=== PATIENT | female | born 1940 | race Caucasian/White ===

== ENCOUNTER 2017-07-15 06:55 | Day surgery (SDC) | payer MEDICARE, OTHER ==
[2017-07-15] MEDS ORDERED: Lactated Ringers 1,000 ML IV SCH (07:15)
[2017-07-15] MEDS ORDERED: Propofol 200 MG/20 ML SDV ONE ×2 (07:42→08:18)
[2017-07-15] MEDS ORDERED: fentaNYL 100 MCG/2 ML SDV ONE (07:43)
[2017-07-15 11:39] VITALS: BP 152/83
--- NOTE | 2017-07-15 15:18 | OR ---
DATE OF PROCEDURE: 07/15/2017 PREOPERATIVE DIAGNOSES: Epigastric pain, history of colon polyps, chronic diverticulosis with 20-pound weight loss. POSTOPERATIVE DIAGNOSES: Epigastric pain, history of colon polyps, chronic diverticulosis with 20-pound weight loss, pyloric stenosis without inflammation, poor colonoscopy prep. PROCEDURE: Esophagogastroscopy with a view of duodenal bulb, biopsy of gastroesophageal junction, attempted colonoscopy to about 30 cm with random colonic biopsies of the rectosigmoid because of diarrhea. SURGEON: Franco Jacob MD. ANESTHESIA: IV anesthesia with monitored anesthesia care. INDICATION: This is a 76-year-old white female who is referred for upper and lower endoscopy. The indication for upper endoscopy is epigastric pain. She says she feels like she is having a heart attack, but she is not. The indication for a colonoscopy is a history of colon polyps as well as she says diarrhea, which started back early in the summer. I counseled her for upper and lower endoscopy with possible biopsy and/or polypectomy including risks and alternatives, and she gave her informed consent to proceed. DESCRIPTION OF PROCEDURE: The patient was placed in the left lateral decubitus position. IV anesthesia was administered by the Anesthesia Service. Time-out was held. The flexible video Olympus upper endoscope was passed through her mouth, down her esophagus, and into her stomach. The scope was passed down to the pylorus. The pylorus was stenotic. We could not pass through the pylorus into the duodenum, however, we were able to visualize the duodenal bulb, which appeared unremarkable. The scope was brought back, the antrum appeared unremarkable. The scope was retroflexed, the proximal stomach appeared unremarkable. The scope was straightened and brought up to the GE junction. There was evidence of chronic inflammation at the GE junction, as well as the Z-line was not straight , consistent with gastroesophageal reflux disease. We obtained multiple, totalling six biopsies of the gastroesophageal junction. The scope was then brought proximally through remainder of the esophagus, which otherwise appeared unremarkable and it was removed. Next, a rectal exam was performed, which was unremarkable. The flexible video Olympus colonoscope was introduced through her anus, up her rectum, and out her colon. We only got to about 30 cm. We ran into a wall of stool. Also, we were unable to negotiate around this, as there was a lot of bowing. We attempted abdominal compression to see if that would help, and it did not. We then obtained random colonic biopsies of her rectosigmoid because of her chronic diarrhea to check for microscopic colitis. The scope was retroflexed in the rectum with the distal rectum appearing unremarkable. The scope was straightened and removed. She tolerated the procedure well. Franco Jacob MD /[id number] MTDD
== END 2017-07-15 12:22 | disposition home or self-care (01) ==
LOC: JP.SDS 06:55
PROVIDERS: ATTEND Surgery
DX: Z12.11 Encounter for screening for malignant neoplasm of colon (principal); K20.9 Esophagitis, unspecified; K52.9 Noninfective gastroenteritis and colitis, unspecified; Z86.010 Personal history of colon polyps; I12.9 Hypertensive chronic kidney disease with stage 1 through stage 4 chronic kidney disease, or unspecified chronic kidney disease; N18.9 Chronic kidney disease, unspecified; J44.9 Chronic obstructive pulmonary disease, unspecified; E03.9 Hypothyroidism, unspecified; K21.9 Gastro-esophageal reflux disease without esophagitis; F32.9 Major depressive disorder, single episode, unspecified; E66.9 Obesity, unspecified; I73.9 Peripheral vascular disease, unspecified; Z88.2 Allergy status to sulfonamides; Z88.8 Allergy status to other drugs, medicaments and biological substances; Z87.891 Personal history of nicotine dependence; Z90.49 Acquired absence of other specified parts of digestive tract; Z90.710 Acquired absence of both cervix and uterus; Z68.30 Body mass index [BMI] 30.0-30.9, adult
CPT/HCPCS: 43239; 45380; 88305; 88312; J2704; J3010; J7120

== ENCOUNTER 2017-10-28 07:37 | Day surgery (SDC) | payer MEDICARE, OTHER ==
[2017-10-28] MEDS ORDERED: Lactated Ringers 1,000 ML IV SCH (08:00)
[2017-10-28] MEDS ORDERED: Propofol 200 MG/20 ML SDV ONE ×2 (08:19→09:42)
[2017-10-28] MEDS ORDERED: fentaNYL 100 MCG/2 ML SDV ONE (08:19)
[2017-10-28 11:00] VITALS: BP 141/76
--- NOTE | 2017-10-28 14:38 | OR ---
DATE OF PROCEDURE: 10/28/2017 PREOPERATIVE DIAGNOSIS: History of adenomatous colon polyps. POSTOPERATIVE DIAGNOSES: Diverticulosis, 2 areas of small colon polyps, proximal transverse colon and transverse colon. PROCEDURE PERFORMED: Colonoscopy to the cecum with biopsy resection of 3 small colon polyps, proximal transverse colon, and 3 small colon polyps, transverse colon. ANESTHESIA: IV anesthesia with monitored anesthesia care. INDICATION: This 77-year-old white female is here for a colonoscopy. She has a history of adenomatous colon polyps. I counseled her for the procedure including risks and alternatives, and she gave her informed consent to proceed. DESCRIPTION OF PROCEDURE: The patient was placed in the left lateral decubitus position. IV anesthesia was administered by the Anesthesia Service. Time-out was held. A rectal exam was performed, which was unremarkable. The flexible video Olympus colonoscope was introduced through her anus, up her rectum, and out her colon, all the way to the cecum. En route, we saw several left-sided diverticula. There was no bleeding or inflammation associated with any of them. In the mid area of the transverse colon, we saw 3 polyps adjacent to each other. These were removed with the biopsy forceps and sent to the laboratory as 1 specimen. In the more proximal transverse colon, we saw another short area of 3 small polyps, which were again removed with the biopsy forceps and sent to the laboratory as 1 specimen. The scope was passed into the cecum. It was then slowly withdrawn, examining the mucosa throughout. No additional mucosal abnormalities were noted. The scope was retroflexed in the rectum with the distal rectum appearing unremarkable. The scope was straightened and removed. She tolerated the procedure well. Franco Jacob MD /[id number]
== END 2017-10-28 11:59 | disposition home or self-care (01) ==
LOC: JP.SDS 07:37
PROVIDERS: ATTEND Surgery
DX: Z12.11 Encounter for screening for malignant neoplasm of colon (principal); D12.3 Benign neoplasm of transverse colon; K57.30 Diverticulosis of large intestine without perforation or abscess without bleeding; E78.5 Hyperlipidemia, unspecified; K21.9 Gastro-esophageal reflux disease without esophagitis; I73.9 Peripheral vascular disease, unspecified; F41.9 Anxiety disorder, unspecified; F32.9 Major depressive disorder, single episode, unspecified; N18.9 Chronic kidney disease, unspecified; I12.9 Hypertensive chronic kidney disease with stage 1 through stage 4 chronic kidney disease, or unspecified chronic kidney disease; E03.9 Hypothyroidism, unspecified; Z86.010 Personal history of colon polyps; Z88.2 Allergy status to sulfonamides; Z88.8 Allergy status to other drugs, medicaments and biological substances
CPT/HCPCS: 45380; J2704; J3010; J7120

== ENCOUNTER 2018-03-27 23:23 | Emergency (ER) | payer MEDICARE, OTHER ==
[2018-03-28] MEDS ORDERED: Prochlorperazine 10 MG/2 ML SDV IVPUSH ONE (00:12)
[2018-03-28] MEDS ORDERED: Lactated Ringers 1,000 ML IV SCH ×2 (00:15→02:15)
[2018-03-28] MEDS ORDERED: Lactated Ringers 1,000 ML IV ONE (00:18)
--- NOTE | 2018-03-28 00:18 | EDM.PDOC ---
ED HPI GENERAL MEDICAL PROBLEM - General Chief Complaint: Gastrointestinal Problem Stated Complaint: FLU VOMITING PAST FEW DAYS Time Seen by Provider: 03/28/18 00:00 Source of Information: Reports: Patient, Old Records, RN History Limitations: Reports: No Limitations - History of Present Illness INITIAL COMMENTS - FREE TEXT/NARRATIVE: 77 yo female presents with a worsening of her chronic diarrhea over the past 2 days as well as some nausea and vomiting. Is taking in very little oral due to her illness and is not taking any of her medications. Has not been to the clinic for this. No fever. No bleeding. Does have some abdominal pain diffusely. Had not felt well for about a week. Onset: Gradual Onset Date: 03/26/18 Duration: Day(s): (2+), Getting Worse Location: Reports: Abdomen Quality: Reports: Dull Severity: Moderate Improves with: Reports: None Worsens with: Reports: Other (time) Context: Reports: Other (Has chronic diarrhea) Associated Symptoms: Reports: Loss of Appetite, Nausea/Vomiting. 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 (see below) (none) abdominal pain Pain Score (Numeric/FACES): 5 - Related Data Allergies Allergy/AdvReac Type Severity Reaction Status Date / Time Sulfa (Sulfonamide Allergy Cannot Verified 03/27/18 23:58 Antibiotics) Remember atorvastatin AdvReac Abdominal Verified 03/27/18 23:58 Pain ibuprofen [From Motrin] AdvReac Stomach Verified 03/27/18 23:58 Upset Home Meds: Home Meds Albuterol Sulfate [Albuterol Sulfate HFA] 2 puff INH QID 08/15/14 [History] Aspirin [Ecotrin] 162 mg PO DAILY 08/15/14 [History] Cholecalciferol (Vitamin D3) [Vitamin D3] 2,000 unit PO DAILY 08/15/14 [History] Citalopram Hydrobromide [Celexa] 30 mg PO DAILY 08/15/14 [History] Cyanocobalamin/FA/Pyridoxine [Folbic] 1 tab PO DAILY 08/15/14 [History] Hydrochlorothiazide 12.5 mg PO DAILY 08/15/14 [History] Levothyroxine [Synthroid] 88 mcg PO DAILY 08/15/14 [History] Metoprolol Succinate [Toprol Xl] 150 mg PO DAILY 08/15/14 [History] Omeprazole [Prilosec] 20 mg PO QAM 08/15/14 [History] amLODIPine Besylate [Amlodipine Besylate] 10 mg PO DAILY 08/15/14 [History] Gabapentin [Neurontin] 200 mg PO BEDTIME 07/11/17 [History] Magnesium Oxide 400 mg PO DAILY 07/11/17 [History] Multivitamin with Minerals [Multiple Vitamin] 1 tab PO DAILY 07/11/17 [History] Nystatin 100,000 unit TOP BID 07/11/17 [History] Triamcinolone Acetonide [Kenalog 0.1% Crm] 0.1 percent TOP BID 07/11/17 [History ] Cholestyramine/Sucrose [Cholestyramine Packet] 4 gm PO BID 03/28/18 [History] Diphenoxylate HCl/Atropine [Diphenoxylate-Atrop 2.5-0.025] 2 each PO QID PRN 03/10 [History] Past Medical History HEENT History: Reports: Impaired Vision Other HEENT History: wears glasses Cardiovascular History: Reports: CAD, Hypertension, SOB on Exertion, Other (See Below) Other Cardiovascular History: carotid artery disease-peripheral artery disease- abdom. 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: Dysfunctional Uterine Bleeding Musculoskeletal History: Reports: Back Pain, Chronic, Fracture, Osteoarthritis Other Musculoskeletal History: chronic degenerative back disease Psychiatric History: Reports: Depression, Psych Hospitalization(s), Suicide Attempt, Suicidal Ideation Endocrine/Metabolic History: Reports: Hypothyroidism, Obesity/BMI 30+ Hematologic History: Reports: Anemia Dermatologic History: Reports: Other (See Below) Other Dermatologic History: "picks at skin" - Infectious Disease History Infectious Disease History: Reports: Chicken Pox - Past Surgical History HEENT Surgical History: Reports: Cataract Surgery Cardiovascular Surgical History: Reports: AAA Repair GI Surgical History: Reports: Appendectomy, Cholecystectomy, Colonoscopy, Polypectomy Female Surgical History: Reports: Hysterectomy, Salpingo-Oophorectomy Musculoskeletal Surgical History: Reports: Carpal Tunnel Dermatological Surgical History: Reports: None Social & Family History - Family History Family Medical History: Noncontributory - Tobacco Use Smoking Status *Q: Never Smoker Second Hand Smoke Exposure: No - Caffeine Use Caffeine Use: Reports: Coffee - Recreational Drug Use Recreational Drug Use: No - Living Situation & Occupation Living situation: Reports: , with Spouse Occupation: Disabled ED ROS GENERAL - Review of Systems Review Of Systems: See Below Constitutional: Reports: Malaise, Decreased Appetite. Denies: Fever HEENT: Reports: No Symptoms Respiratory: Reports: No Symptoms Cardiovascular: Reports: No Symptoms Endocrine: Reports: No Symptoms GI/Abdominal: Reports: Abdominal Pain, Diarrhea, Decreased Appetite, Nausea, Vomiting. Denies: Black Stool, Bloody Stool, Constipation, Hematemesis, Hematochezia, Melena : Reports: No Symptoms Musculoskeletal: Reports: No Symptoms Skin: Reports: No Symptoms Neurological: Reports: No Symptoms ED EXAM, GI/ABD - Physical Exam Exam: See Below Exam Limited By: No Limitations General Appearance: Alert, WD/WN, No Apparent Distress Eyes: Bilateral: Normal Appearance Ears: Normal External Exam, Normal Canal, Hearing Grossly Normal Nose: Normal Inspection, Normal Mucosa, No Blood Throat/Mouth: Normal Inspection, Normal Lips, Normal Oropharynx, Normal Voice, No Airway Compromise Head: Atraumatic, Normocephalic Neck: Normal Inspection Respiratory/Chest: No Respiratory Distress, Lungs Clear, Normal Breath Sounds, No Accessory Muscle Use Cardiovascular: Regular Rate, Rhythm, Tachycardia GI/Abdominal Exam: Distended (mild), Tender (diffusely), Abnormal Bowel Sounds ( decreased). No: No Distention Back Exam: Normal Inspection. No: CVA Tenderness (R), CVA Tenderness (L) Extremities: Normal Inspection, Normal Range of Motion, Non-Tender, No Pedal Edema Neurological: Alert, Oriented, CN II-XII Intact, Normal Cognition Psychiatric: Normal Affect, Normal Mood Skin Exam: Warm, Dry, Intact, Normal Color, No Rash Lymphatic: No Adenopathy EKG INTERPRETATION EKG Date: 03/28/18 Time: 01:50 Rhythm: NSR Rate (Beats/Min): 112 Rudyard: Normal P-Wave: Present QRS: Normal ST-T: Depressed (V2-V4) QT: Normal Comparison: Change From Previous EKG (anterior changes noted since tracing in ' 14) Course - Vital Signs Text/Narrative:: Developed transient chest pain with EKG changes during her ER stay. Will transfer to [facility]. Dr. Gil accepting. Last Recorded V/S: Last Vital Signs Temp 36.6 C 03/28/18 02:15 Pulse 116 H 03/28/18 02:15 Resp 19 03/28/18 02:15 BP 172/85 H 03/28/18 02:15 Pulse Ox 98 03/28/18 02:15 Orthostatic Blood Pressure [ 69/37 Standing] Orthostatic Blood Pressure [ 99/49 Sitting] Orthostatic Blood Pressure [ 108/80 Supine] - Orders/Labs/Meds Orders: Active Orders 24 hr Category Date Time Status EKG Documentation Completion [RC] ASDIRECTED Care 03/28/18 01:49 Active Orthostatic Vital Signs [RC] ASDIRECTED Care 03/28/18 00:09 Active Abdomen 1V Upright [CR] Stat Exams 03/28/18 00:11 Taken CLOSTRIDIUM DIFFICILE BY PCR [RM] Stat Lab 03/28/18 00:10 Ordered UA W/MICROSCOPIC [URIN] Stat Lab 03/28/18 00:09 Ordered Lactated Ringers [Ringers, Lactated] 1,000 ml Med 03/28/18 02:15 Active IV ASDIRECTED EKG 12 Lead [EK] Routine Ther 03/28/18 01:49 Ordered Medication Orders Lactated Ringer's (Ringers, Lactated) 1,000 mls @ 150 mls/hr IV ASDIRECTED [facility] Last Admin: 03/28/18 02:14 Dose: 150 mls/hr Labs: Laboratory Tests 03/28/18 03/28/18 03/28/18 Range/Units 00:15 00:23 00:23 WBC 9.6 (4.5-11.0) K/uL RBC 3.61 (3.30-5.50) M/uL Hgb 11.5 L (12.0-15.0) g/dL Hct 35.2 L (36.0-48.0) % MCV 98 (80-98) fL MCH 32 H (27-31) pg MCHC 33 (32-36) % Plt Count 315 (150-400) K/uL Sodium 137 L (140-148) mmol/L Potassium 3.5 L (3.6-5.2) mmol/L Chloride 105 (100-108) mmol/L Carbon Dioxide 16 L (21-32) mmol/L Anion Gap 19.5 H (5.0-14.0) mmol/L BUN 52 H D (7-18) mg/dL Creatinine 2.7 H D (0.6-1.0) mg/dL Est Cr Clr Drug Dosing 12.33 mL/min Estimated GFR (MDRD) 17 L (>60) Glucose 130 H (74-106) mg/dL Calcium 9.3 (8.5-10.1) mg/dL Total Bilirubin 0.3 (0.2-1.0) mg/dL AST 56 H (15-37) U/L ALT 31 (12-78) U/L Alkaline Phosphatase 114 D (46-116) U/L Troponin I 0.068 H* (0.000-0.056) ng/mL Total Protein 7.8 (6.4-8.2) g/dL Albumin 3.6 (3.4-5.0) g/dL Globulin 4.2 H (2.3-3.5) g/dL Albumin/Globulin Ratio 0.9 L (1.2-2.2) Meds: Medications Generic Name Dose Route Start Last Admin Trade Name Freq PRN Reason Stop Dose Admin Lactated Ringer's 1,000 mls @ 150 mls/hr 03/28/18 02:15 03/28/18 02:14 Ringers, Lactated IV 150 mls/hr ASDIRECTED AZIZA Administration Discontinued Medications Generic Name Dose Route Start Last Admin Trade Name Flakoq PRN Reason Stop Dose Admin Aspirin 324 mg 03/28/18 01:59 03/28/18 02:08 Aspirin PO 03/28/18 02:00 324 mg ONETIME ONE Administration Lactated Ringer's 1,000 mls @ 150 mls/hr 03/28/18 00:15 Ringers, Lactated IV ASDIRECTED AZIZA Lactated Ringer's 1,000 mls @ 1,000 mls/hr 03/28/18 00:18 03/28/18 00:35 Ringers, Lactated IV 03/28/18 01:17 1,000 mls/hr BOLUS ONE Administration Metoprolol Tartrate 50 mg 03/28/18 01:59 03/28/18 02:08 Lopressor PO 03/28/18 02:00 50 mg ONETIME ONE Administration Prochlorperazine Edisylate 5 mg 03/28/18 00:12 03/28/18 00:37 Compazine IVPUSH 03/28/18 00:13 5 mg ONETIME ONE Administration - Radiology Interpretation Free Text/Narrative:: upright abdominal X-ray- non-specific gas pattern Departure - Departure Time of Disposition: 02:45 Disposition: DC/Tfer to Acute Hospital 02 Condition: Fair Clinical Impression: Cardiac ischemia, Dehydration, Elevated serum creatinine - Discharge Information Referrals: PCP,None [Primary Care Provider] - Forms: ED Department Discharge - My Orders Last 24 Hours: My Active Orders 03/28/18 00:09 Orthostatic Vital Signs [RC] ASDIRECTED UA W/MICROSCOPIC [URIN] Stat 03/28/18 00:10 CLOSTRIDIUM DIFFICILE BY PCR [RM] Stat 03/28/18 00:11 Abdomen 1V Upright [CR] Stat 03/28/18 01:49 EKG Documentation Completion [RC] ASDIRECTED EKG 12 Lead [EK] Routine 03/28/18 02:15 Lactated Ringers [Ringers, Lactated] 1,000 ml IV ASDIRECTED - Assessment/Plan Last 24 Hours: My Active Orders 03/28/18 00:09 Orthostatic Vital Signs [RC] ASDIRECTED UA W/MICROSCOPIC [URIN] Stat 03/28/18 00:10 CLOSTRIDIUM DIFFICILE BY PCR [RM] Stat 03/28/18 00:11 Abdomen 1V Upright [CR] Stat 03/28/18 01:49 EKG Documentation Completion [RC] ASDIRECTED EKG 12 Lead [EK] Routine 03/28/18 02:15 Lactated Ringers [Ringers, Lactated] 1,000 ml IV ASDIRECTED
[2018-03-28] MEDS ORDERED: Metoprolol Tartrate 50 MG Tab PO ONE (01:59)
[2018-03-28] MEDS ORDERED: Aspirin 81 MG Tab.Chew PO ONE (01:59)
[2018-03-28] MEDS ORDERED: Heparin Sodium 5,000 Units/ML Vial IVPUSH ONE (02:31)
[2018-03-28] MEDS ORDERED: Heparin Sodium/D5W 25,000 UNITS/500 ML BAG IV SCH (02:45)
[2018-03-28 03:11] VITALS: BP 176/85
--- NOTE | 2018-03-28 09:07 | CR ---
Abdomen 1V Upright INDICATION: abdominal pain COMPARISON: Nothing recent. FINDINGS: 2 views. Aortobiiliac stent graft. No abnormal bowel gas pattern or signs of obstruction. No free air or abnormal air-fluid levels.
== END 2018-03-28 02:58 ==
LOC: JP.ED 23:23
DX: I25.9 Chronic ischemic heart disease, unspecified (principal); E86.0 Dehydration; R74.8 Abnormal levels of other serum enzymes; J44.9 Chronic obstructive pulmonary disease, unspecified; I12.9 Hypertensive chronic kidney disease with stage 1 through stage 4 chronic kidney disease, or unspecified chronic kidney disease; N18.3 Chronic kidney disease, stage 3 (moderate); E03.9 Hypothyroidism, unspecified; Z88.2 Allergy status to sulfonamides; Z88.6 Allergy status to analgesic agent; Z79.82 Long term (current) use of aspirin; Z87.440 Personal history of urinary (tract) infections
CPT/HCPCS: 36415; 74018; 80053; 84484; 85027; 93005; 96361; 96374; 96375; 99285; A9270; J0780; J1644; J7120; 99284-25

== ENCOUNTER 2018-03-31 08:15 | Emergency (ER) | payer MEDICARE, OTHER ==
[2018-03-31 08:39] VITALS: BP 115/48
[2018-03-31] MEDS ORDERED: Gabapentin 100 MG Cap PO ONE (09:12)
--- NOTE | 2018-03-31 09:17 | EDM.PDOC ---
ED HPI GENERAL MEDICAL PROBLEM - General Chief Complaint: Upper Extremity Injury/Pain Stated Complaint: VOMITING WEAK Time Seen by Provider: 03/31/18 08:50 Source of Information: Reports: Patient, Family History Limitations: Reports: No Limitations - History of Present Illness INITIAL COMMENTS - FREE TEXT/NARRATIVE: 77-year-old female was released from the hospital in [place] yesterday after a workup considering generalized malaise, nausea, cardiac symptoms but in reviewing her history she admits that she tried to fill her gabapentin last week and was unable because it was "too early". Today she comes in with her arms aching, no shortness of breath or chest pain. She feels like she needs to have her gabapentin. Onset: Gradual, Unknown/Unsure Improves with: Reports: Other (Symptoms are better when she is on her regular medications) Associated Symptoms: Reports: No Other Symptoms - Related Data Allergies Allergy/AdvReac Type Severity Reaction Status Date / Time Sulfa (Sulfonamide Allergy Cannot Verified 03/31/18 08:39 Antibiotics) Remember atorvastatin AdvReac Abdominal Verified 03/31/18 08:39 Pain ibuprofen [From Motrin] AdvReac Stomach Verified 03/31/18 08:39 Upset Home Meds: Home Meds Albuterol Sulfate [Albuterol Sulfate HFA] 2 puff INH QID 08/15/14 [History] Aspirin [Ecotrin] 162 mg PO DAILY 08/15/14 [History] Cholecalciferol (Vitamin D3) [Vitamin D3] 2,000 unit PO DAILY 08/15/14 [History] Citalopram Hydrobromide [Celexa] 30 mg PO DAILY 08/15/14 [History] Cyanocobalamin/FA/Pyridoxine [Folbic] 1 tab PO DAILY 08/15/14 [History] Hydrochlorothiazide 12.5 mg PO DAILY 08/15/14 [History] Levothyroxine [Synthroid] 88 mcg PO DAILY 08/15/14 [History] Metoprolol Succinate [Toprol Xl] 150 mg PO DAILY 08/15/14 [History] Omeprazole [Prilosec] 20 mg PO QAM 08/15/14 [History] amLODIPine Besylate [Amlodipine Besylate] 10 mg PO DAILY 08/15/14 [History] Gabapentin [Neurontin] 200 mg PO BEDTIME 07/11/17 [History] Multivitamin with Minerals [Multiple Vitamin] 1 tab PO DAILY 07/11/17 [History] Nystatin 100,000 unit TOP BID 07/11/17 [History] Triamcinolone Acetonide [Kenalog 0.1% Crm] 0.1 percent TOP BID 07/11/17 [History ] Cholestyramine/Sucrose [Cholestyramine Packet] 4 gm PO BID 03/28/18 [History] Diphenoxylate HCl/Atropine [Diphenoxylate-Atrop 2.5-0.025] 2 each PO QID PRN 03/10 [History] Nitroglycerin [Nitrostat] 1 tab PO ASDIRECTED 03/31/18 [History] amLODIPine [Norvasc] 2.5 mg PO DAILY 03/31/18 [History] Past Medical History HEENT History: Reports: Impaired Vision Other HEENT History: wears glasses Cardiovascular History: Reports: CAD, Hypertension, SOB on Exertion, Other (See Below) Other Cardiovascular History: carotid artery disease-peripheral artery disease- abdom. 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: Dysfunctional Uterine Bleeding Musculoskeletal History: Reports: Back Pain, Chronic, Fracture, Osteoarthritis Other Musculoskeletal History: chronic degenerative back disease Psychiatric History: Reports: Depression, Psych Hospitalization(s), Suicide Attempt, Suicidal Ideation Endocrine/Metabolic History: Reports: Hypothyroidism, Obesity/BMI 30+ Hematologic History: Reports: Anemia Dermatologic History: Reports: Other (See Below) Other Dermatologic History: "picks at skin" - Infectious Disease History Infectious Disease History: Reports: Chicken Pox - Past Surgical History HEENT Surgical History: Reports: Cataract Surgery Cardiovascular Surgical History: Reports: AAA Repair GI Surgical History: Reports: Appendectomy, Cholecystectomy, Colonoscopy, Polypectomy Female Surgical History: Reports: Hysterectomy, Salpingo-Oophorectomy Musculoskeletal Surgical History: Reports: Carpal Tunnel Dermatological Surgical History: Reports: None Social & Family History - Family History Family Medical History: Noncontributory - Tobacco Use Smoking Status *Q: Never Smoker - Caffeine Use Caffeine Use: Reports: Coffee - Recreational Drug Use Recreational Drug Use: No - Living Situation & Occupation Living situation: Reports: , with Spouse Occupation: Disabled Review of Systems - Review of Systems Review Of Systems: See Below Constitutional: Denies: Fever Mouth/Throat: Reports: No Symptoms Respiratory: Denies: Shortness of Breath, Cough Cardiovascular: Denies: Chest Pain GI/Abdominal: Reports: Nausea, Vomiting (Had some nausea and vomiting last week but that has improved). Denies: Abdominal Pain Neurological: Denies: Headache ED EXAM, GENERAL - Physical Exam Exam: See Below Exam Limited By: No Limitations General Appearance: Alert, No Apparent Distress Eye Exam: Bilateral Eye: EOMI Head: Atraumatic Respiratory/Chest: No Respiratory Distress, Lungs Clear Cardiovascular: Regular Rate, Rhythm GI/Abdominal: Soft, Non-Tender Neurological: Alert, Oriented Psychiatric: Normal Affect, Normal Mood Skin Exam: Warm, Dry Course - Vital Signs Last Recorded V/S: Last Vital Signs Temp 97.5 F 03/31/18 08:44 Pulse 59 L 03/31/18 08:44 Resp 18 03/31/18 08:44 BP 115/48 L 03/31/18 08:44 Pulse Ox 94 L 03/31/18 08:44 - Orders/Labs/Meds Meds: Medications Discontinued Medications Generic Name Dose Route Start Last Admin Trade Name Evan PRN Reason Stop Dose Admin Gabapentin 100 mg 03/31/18 09:12 03/31/18 09:15 Neurontin PO 03/31/18 09:13 100 mg ONETIME ONE Administration - Re-Assessments/Exams Free Text/Narrative Re-Assessment/Exam: 03/31/18 09:14 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 She is 2 weeks early. I did call [facility] and they are able to fill her prescription today. We gave her 100 mg by mouth, and she is going to resume her regular dose tonight. Recheck tomorrow if not improving. Departure - Departure Time of Disposition: 09:33 Disposition: Home, Self-Care 01 Condition: Good Clinical Impression: Chronic pain Qualifiers: Chronic pain type: chronic pain syndrome Qualified Code(s): G89.4 - Chronic pain syndrome - Discharge Information Instructions: Pain Medicine Instructions, [id number] Referrals: PCP,None [Primary Care Provider] - Forms: ED Department Discharge Care Plan Goals: Failure prescription today and resume your regular dose tonight. Consider rechecking tomorrow if not improving satisfactorily.
== END 2018-03-31 09:32 | disposition home or self-care (01) ==
LOC: JP.ED 08:15
DX: G89.4 Chronic pain syndrome (principal); I10 Essential (primary) hypertension; J44.9 Chronic obstructive pulmonary disease, unspecified; E03.9 Hypothyroidism, unspecified; F32.9 Major depressive disorder, single episode, unspecified; Z79.899 Other long term (current) drug therapy; Z88.2 Allergy status to sulfonamides; Z88.6 Allergy status to analgesic agent; Z88.8 Allergy status to other drugs, medicaments and biological substances
CPT/HCPCS: 99283; A9270

== ENCOUNTER 2018-09-28 17:26 | Emergency (ER) | payer MEDICARE, OTHER ==
[2018-09-28 18:07] VITALS: BP 152/77
--- NOTE | 2018-09-28 18:39 | EDM.PDOC ---
ED HPI GENERAL MEDICAL PROBLEM - General Chief Complaint: General Stated Complaint: BODY ACHES Time Seen by Provider: 09/28/18 18:20 Source of Information: Reports: Patient, Family, Old Records History Limitations: Reports: No Limitations - History of Present Illness INITIAL COMMENTS - FREE TEXT/NARRATIVE: 78 yo female recently had a fall. Since then she has complained of "pain all over". She has had it sounds like at least 2 prior ER visits and a clinic visit since the fall. Lives at home with her . Is taking Tramadol without relief. Does not have a follow up appt scheduled with her primary care provider. Has a hx of depression and takes citalopram 30 mg daily but does not think it is giving her good relief. Has trouble sleeping. Has a reduced appetite. Onset: Gradual Onset Date: 09/21/18 Duration: Day(s):, Constant Location: Reports: Generalized Quality: Reports: Ache Severity: Moderate Improves with: Reports: None Worsens with: Reports: None Context: Reports: Other (It has been assumed her pains are related to her fall, but my impression is that this may not be the case as she has had a negative w/ u and has no localizing pain. 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, Other Medication(s) (tramadol), Other ( see below) (citalopram 30 mg qd) Generalized Pain Score (Numeric/FACES): 10 - Related Data Allergies Allergy/AdvReac Type Severity Reaction Status Date / Time Sulfa (Sulfonamide Allergy Cannot Verified 09/28/18 18:14 Antibiotics) Remember atorvastatin AdvReac Abdominal Verified 09/28/18 18:14 Pain ibuprofen [From Motrin] AdvReac Stomach Verified 09/28/18 18:14 Upset Home Meds: Home Meds Aspirin [Ecotrin] 162 mg PO DAILY 08/15/14 [History] Cholecalciferol (Vitamin D3) [Vitamin D3] 2,000 unit PO DAILY 08/15/14 [History] Citalopram Hydrobromide [Celexa] 30 mg PO DAILY 08/15/14 [History] Levothyroxine [Synthroid] 88 mcg PO DAILY 08/15/14 [History] Metoprolol Succinate [Toprol Xl] 150 mg PO DAILY 08/15/14 [History] Omeprazole [Prilosec] 20 mg PO QAM 08/15/14 [History] amLODIPine Besylate [Amlodipine Besylate] 10 mg PO DAILY 08/15/14 [History] hydroCHLOROthiazide [Hydrochlorothiazide] 12.5 mg PO DAILY 08/15/14 [History] Gabapentin [Neurontin] 100 mg PO ASDIRECTED PRN 07/11/17 [History] Multivitamin with Minerals [Multiple Vitamin] 1 tab PO DAILY 07/11/17 [History] Nystatin 100,000 unit TOP BID 07/11/17 [History] Triamcinolone Acetonide [Kenalog 0.1% Crm] 0.1 percent TOP BID 07/11/17 [History ] Diphenoxylate HCl/Atropine [Diphenoxylate-Atrop 2.5-0.025] 2 each PO QID PRN 03/10 [History] Albuterol [Proventil Neb Soln] 3 ml INH Q6H PRN 04/22/18 [History] Cyanocobalamin/FA/Pyridoxine [Virt-Liset Forte Tablet] 1 each PO DAILY 04/29/18 [ History] Lisinopril 5 mg PO DAILY 04/29/18 [History] Ondansetron HCl [Zofran] 4 mg PO Q8H PRN 04/29/18 [History] Rosuvastatin [Crestor] 10 mg PO DAILY 04/29/18 [History] Sucralfate [Carafate] 1 gm PO QIDACANDBED 04/29/18 [History] traMADol HCl [Ultram] 100 mg PO DAILY PRN 04/29/18 [History] predniSONE [Prednisone] 10 mg PO DAILY #10 tablet 09/28/18 [Rx] Past Medical History HEENT History: Reports: Impaired Vision Other HEENT History: wears glasses Cardiovascular History: Reports: CAD, Hypertension, SOB on Exertion, Other (See Below) Other Cardiovascular History: carotid artery disease-peripheral artery disease- abdom. 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 Musculoskeletal History: Reports: Back Pain, Chronic, Fracture, Osteoarthritis Other Musculoskeletal History: chronic degenerative back disease Psychiatric History: Reports: Depression, Psych Hospitalization(s), Suicide Attempt, Suicidal Ideation Endocrine/Metabolic History: Reports: Hypothyroidism Hematologic History: Reports: Anemia Dermatologic History: Reports: Other (See Below) Other Dermatologic History: "picks at skin" - Infectious Disease History Infectious Disease History: Reports: Chicken Pox - Past Surgical History Head Surgeries/Procedures: Reports: None HEENT Surgical History: Reports: Cataract Surgery Cardiovascular Surgical History: Reports: AAA Repair GI Surgical History: Reports: Appendectomy, Cholecystectomy, Colonoscopy, Polypectomy Female Surgical History: Reports: Hysterectomy, Salpingo-Oophorectomy Endocrine Surgical History: Reports: None Musculoskeletal Surgical History: Reports: Carpal Tunnel Dermatological Surgical History: Reports: None Social & Family History - Family History Family Medical History: Noncontributory - Tobacco Use Smoking Status *Q: Former Smoker Used Tobacco, but Quit: Yes Month/Year Tobacco Last Used: 2004 - Caffeine Use Caffeine Use: Reports: None - Recreational Drug Use Recreational Drug Use: No - Living Situation & Occupation Living situation: Reports: , with Spouse Occupation: Disabled ED ROS GENERAL - Review of Systems Review Of Systems: See Below Constitutional: Reports: Malaise, Decreased Appetite HEENT: Reports: No Symptoms Respiratory: Reports: No Symptoms Cardiovascular: Reports: No Symptoms Endocrine: Reports: No Symptoms GI/Abdominal: Reports: No Symptoms : Reports: No Symptoms Musculoskeletal: Reports: Other ("hurts all over") Skin: Reports: No Symptoms Psychiatric: Reports: Anxiety, Depression, Other (insomnia) ED EXAM, GENERAL - Physical Exam Exam: See Below Exam Limited By: Other (poor historian) General Appearance: Alert, WD/WN, No Apparent Distress Eye Exam: Bilateral Eye: Normal Inspection Ears: Normal External Exam, Normal Canal, Hearing Grossly Normal, Normal TMs Ear Exam: Bilateral Ear: Auricle Normal, Canal Normal, TM normal Nose: Normal Inspection, No Blood Throat/Mouth: Normal Inspection, Normal Lips, Normal Oropharynx, Normal Voice, No Airway Compromise, Other (dentures) Head: Atraumatic, Normocephalic Neck: Normal Inspection, Supple, Non-Tender Respiratory/Chest: No Respiratory Distress, Lungs Clear, Normal Breath Sounds, No Accessory Muscle Use, Chest Non-Tender Cardiovascular: Regular Rate, Rhythm, No Edema GI/Abdominal: Normal Bowel Sounds, Soft, Non-Tender, No Distention Back Exam: Normal Inspection. No: CVA Tenderness (R), CVA Tenderness (L) Extremities: Normal Inspection, Normal Range of Motion, Non-Tender, No Pedal Edema Neurological: Alert, Oriented, CN II-XII Intact, Normal Cognition, No Motor/ Sensory Deficits Psychiatric: Flat Affect Skin Exam: Warm, Dry, Intact, Normal Color, No Rash Lymphatic: No Adenopathy Course - Vital Signs Last Recorded V/S: Last Vital Signs Temp 35.8 C 09/28/18 18:10 Pulse 90 09/28/18 18:10 Resp 20 09/28/18 18:10 BP 152/77 H 09/28/18 18:10 Pulse Ox 96 09/28/18 18:10 - Orders/Labs/Meds Labs: Laboratory Tests 09/28/18 Range/Units 18:44 ESR 34 H (0-25) mm/hr Meds: Medications Discontinued Medications Generic Name Dose Route Start Last Admin Trade Name Freq PRN Reason Stop Dose Admin Prednisone 15 mg 09/28/18 19:35 Prednisone PO 09/28/18 19:36 ONETIME ONE Departure - Departure Time of Disposition: 19:45 Disposition: Home, Self-Care 01 Condition: Fair Clinical Impression: PMR (polymyalgia rheumatica) - Discharge Information *PRESCRIPTION DRUG MONITORING PROGRAM REVIEWED*: No *COPY OF PRESCRIPTION DRUG MONITORING REPORT IN PATIENT EDILBERTO: No Prescriptions: predniSONE [Prednisone] 10 mg PO DAILY #10 tablet Referrals: Nathaly Adams PA-C [Primary Care Provider] - Forms: ED Department Discharge Additional Instructions: Take prednisone daily with food. Recheck later this week with your provider.
[2018-09-28] MEDS ORDERED: predniSONE 10 MG Tab PO ONE (19:35)
== END 2018-09-28 20:09 | disposition home or self-care (01) ==
LOC: JP.ED 17:26
DX: M35.3 Polymyalgia rheumatica (principal); I12.9 Hypertensive chronic kidney disease with stage 1 through stage 4 chronic kidney disease, or unspecified chronic kidney disease; N18.3 Chronic kidney disease, stage 3 (moderate); E03.9 Hypothyroidism, unspecified; F32.9 Major depressive disorder, single episode, unspecified; I25.10 Atherosclerotic heart disease of native coronary artery without angina pectoris; Z90.49 Acquired absence of other specified parts of digestive tract; Z87.891 Personal history of nicotine dependence; Z88.2 Allergy status to sulfonamides; Z88.6 Allergy status to analgesic agent; Z88.8 Allergy status to other drugs, medicaments and biological substances; Z79.82 Long term (current) use of aspirin; Z79.899 Other long term (current) drug therapy
CPT/HCPCS: 36415; 85651; 99284; A9270

== ENCOUNTER 2018-10-01 14:41 | Inpatient (IN) | payer MEDICARE, OTHER ==
[2018-10-01] MEDS ORDERED: Lactated Ringers 1,000 ML IV ONE (15:00)
--- NOTE | 2018-10-01 15:06 | EDM.PDOC ---
ED HPI GENERAL MEDICAL PROBLEM - General Chief Complaint: Cardiovascular Problem Stated Complaint: [facility] Time Seen by Provider: 10/01/18 14:50 Source of Information: Reports: Patient, EMS, Family, Old Records, RN History Limitations: Reports: No Limitations - History of Present Illness INITIAL COMMENTS - FREE TEXT/NARRATIVE: 78 yo female was seen here 3 days ago for diffuse muscle pain and was started on prednisone 10 mg daily for an elevated ESR presumed to represent PMR. She says she has less of the muscle pain now, but has diffuse weakness, anorexia, light-headedness with standing, and did have one episode of hallucinating. Had a brief syncopal episode in association today with trying to get up so EMS was called. EMS noted low BP with a normal HR en route to the ER. Not taking her other meds she says due to her lack of appetite. She was transferred last March to [facility] for mildly elevated Trop. There she had an ECHO that was essentially normal. No heart cath was performed due to her marginal renal fxn. Maximizing medical tx was recommended at that time. Onset: Gradual Onset Date: 09/29/18 Duration: Day(s):, Getting Worse Location: Reports: Generalized Quality: Reports: Other (Some mild "left chest and arm pain" today.) Severity: Mild Improves with: Reports: None Worsens with: Reports: None Context: Reports: Other (See HPI) Associated Symptoms: Reports: Chest Pain (mild, left), Loss of Appetite, Malaise , Syncope (brief just before arrival. ), Weakness (generalized). 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) (prednisone only) Left Arm Pain Score (Numeric/FACES): 7 - Related Data Allergies Allergy/AdvReac Type Severity Reaction Status Date / Time Sulfa (Sulfonamide Allergy Cannot Verified 10/01/18 14:52 Antibiotics) Remember atorvastatin AdvReac Abdominal Verified 10/01/18 14:52 Pain ibuprofen [From Motrin] AdvReac Stomach Verified 10/01/18 14:52 Upset Home Meds: Home Meds Aspirin [Ecotrin] 162 mg PO DAILY 08/15/14 [History] Cholecalciferol (Vitamin D3) [Vitamin D3] 2,000 unit PO DAILY 08/15/14 [History] Citalopram Hydrobromide [Celexa] 30 mg PO DAILY 08/15/14 [History] Levothyroxine [Synthroid] 88 mcg PO DAILY 08/15/14 [History] Metoprolol Succinate [Toprol Xl] 150 mg PO DAILY 08/15/14 [History] Omeprazole [Prilosec] 20 mg PO QAM 08/15/14 [History] hydroCHLOROthiazide [Hydrochlorothiazide] 12.5 mg PO DAILY 08/15/14 [History] Gabapentin [Neurontin] 100 mg PO ASDIRECTED PRN 07/11/17 [History] Multivitamin with Minerals [Multiple Vitamin] 1 tab PO DAILY 07/11/17 [History] Nystatin 100,000 unit TOP BID 07/11/17 [History] Triamcinolone Acetonide [Kenalog 0.1% Crm] 0.1 percent TOP BID 07/11/17 [History ] Albuterol [Proventil Neb Soln] 3 ml INH Q6H PRN 04/22/18 [History] Cyanocobalamin/FA/Pyridoxine [Virt-Liset Forte Tablet] 1 each PO DAILY 04/29/18 [ History] Lisinopril 5 mg PO DAILY 04/29/18 [History] Ondansetron HCl [Zofran] 4 mg PO Q8H PRN 04/29/18 [History] Rosuvastatin [Crestor] 10 mg PO DAILY 04/29/18 [History] Sucralfate [Carafate] 1 gm PO QIDACANDBED 04/29/18 [History] predniSONE [Prednisone] 10 mg PO DAILY #10 tablet 09/28/18 [Rx] Past Medical History HEENT History: Reports: Impaired Vision Other HEENT History: wears glasses Cardiovascular History: Reports: CAD, Hypertension, SOB on Exertion, Other (See Below) Other Cardiovascular History: carotid artery disease-peripheral artery disease- abdom. 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 Musculoskeletal History: Reports: Back Pain, Chronic, Fracture, Osteoarthritis Other Musculoskeletal History: chronic degenerative back disease Psychiatric History: Reports: Depression, Psych Hospitalization(s), Suicide Attempt, Suicidal Ideation Endocrine/Metabolic History: Reports: Hypothyroidism Hematologic History: Reports: Anemia Dermatologic History: Reports: Other (See Below) Other Dermatologic History: "picks at skin" - Infectious Disease History Infectious Disease History: Reports: Chicken Pox - Past Surgical History Head Surgeries/Procedures: Reports: None HEENT Surgical History: Reports: Cataract Surgery Cardiovascular Surgical History: Reports: AAA Repair GI Surgical History: Reports: Appendectomy, Cholecystectomy, Colonoscopy, Polypectomy Female Surgical History: Reports: Hysterectomy, Salpingo-Oophorectomy Endocrine Surgical History: Reports: None Musculoskeletal Surgical History: Reports: Carpal Tunnel Dermatological Surgical History: Reports: None Social & Family History - Family History Family Medical History: Noncontributory - Tobacco Use Smoking Status *Q: Never Smoker - Caffeine Use Caffeine Use: Reports: None - Recreational Drug Use Recreational Drug Use: No - Living Situation & Occupation Living situation: Reports: , with Spouse Occupation: Disabled ED ROS GENERAL - Review of Systems Review Of Systems: See Below Constitutional: Reports: Malaise, Weakness, Fatigue, Decreased Appetite. Denies : Fever, Chills HEENT: Reports: No Symptoms Respiratory: Reports: No Symptoms Cardiovascular: Reports: Lightheadedness Endocrine: Reports: No Symptoms GI/Abdominal: Reports: No Symptoms : Reports: No Symptoms Musculoskeletal: Reports: No Symptoms Skin: Reports: No Symptoms Neurological: Reports: Syncope (brief with attempted standing at home before arrival. ) ED EXAM, GENERAL - Physical Exam Exam: See Below Exam Limited By: No Limitations General Appearance: Alert, WD/WN, No Apparent Distress Eye Exam: Bilateral Eye: Normal Inspection Ears: Normal External Exam, Normal Canal Ear Exam: Bilateral Ear: Auricle Normal, Canal Normal Nose: Normal Inspection, No Blood Throat/Mouth: Normal Inspection, Normal Lips, Normal Oropharynx, Normal Voice, No Airway Compromise Head: Atraumatic, Normocephalic Neck: Normal Inspection Respiratory/Chest: No Respiratory Distress, Lungs Clear, Normal Breath Sounds, No Accessory Muscle Use Cardiovascular: Regular Rate, Rhythm, No Edema. No: Bradycardia, Tachycardia GI/Abdominal: Normal Bowel Sounds, Soft, Non-Tender, No Distention Back Exam: Normal Inspection. No: CVA Tenderness (R), CVA Tenderness (L) Extremities: Normal Inspection, Normal Range of Motion, Non-Tender, No Pedal Edema Neurological: Alert, Oriented, CN II-XII Intact, Normal Cognition, No Motor/ Sensory Deficits Psychiatric: Normal Affect, Normal Mood Skin Exam: Warm, Dry, Intact, Normal Color, No Rash Lymphatic: No Adenopathy EKG INTERPRETATION EKG Date: 10/01/18 Time: 15:15 Rhythm: NSR Rate (Beats/Min): 64 Ward: Normal P-Wave: Present QRS: Normal ST-T: Normal QT: Normal Comparison: No Change EKG Interpretation Comments: inverted T waves in ant/lateral leads, only slightly changed from 03/28/18. Course - Vital Signs Text/Narrative:: Dr. Rivero called @ 1635h Last Recorded V/S: Last Vital Signs Temp 36.6 C 10/01/18 14:47 Pulse 68 10/01/18 17:26 Resp 18 10/01/18 17:26 BP 131/65 10/01/18 17:26 Pulse Ox 96 10/01/18 17:26 Orthostatic Blood Pressure [ 74/46 Sitting] Orthostatic Blood Pressure [ 82/38 Supine] - Orders/Labs/Meds Orders: Active Orders 24 hr Category Date Time Status Cardiac Monitoring [RC] .As Directed Care 10/01/18 14:53 Active EKG Documentation Completion [RC] ASDIRECTED Care 10/01/18 15:01 Active UA W/MICROSCOPIC [URIN] Stat Lab 10/01/18 15:00 Ordered Lactated Ringers [Ringers, Lactated] 1,000 ml Med 10/01/18 16:45 Active IV ASDIRECTED EKG 12 Lead [EK] Routine Ther 10/01/18 15:01 Ordered Medication Orders Lactated Ringer's (Ringers, Lactated) 1,000 mls @ 150 mls/hr IV ASDIRECTED AZIZA Last Admin: 10/01/18 16:43 Dose: 150 mls/hr Labs: Laboratory Tests 10/01/18 10/01/18 10/01/18 Range/Units 15:07 15:07 15:07 WBC 9.8 (4.5-11.0) K/uL RBC 3.18 L (3.30-5.50) M/uL Hgb 10.0 L (12.0-15.0) g/dL Hct 32.1 L (36.0-48.0) % MCV 101 H (80-98) fL MCH 31 (27-31) pg MCHC 31 L (32-36) % Plt Count 322 (150-400) K/uL Sodium 137 L (140-148) mmol/L Potassium 4.2 (3.6-5.2) mmol/L Chloride 105 (100-108) mmol/L Carbon Dioxide 19 L (21-32) mmol/L Anion Gap 17.2 H (5.0-14.0) mmol/L BUN 57 H (7-18) mg/dL Creatinine 2.9 H (0.6-1.0) mg/dL Est Cr Clr Drug Dosing 11.30 mL/min Estimated GFR (MDRD) 16 L (>60) Glucose 147 H (74-106) mg/dL Lactic Acid (0.4-2.0) mmol/L Calcium 9.1 (8.5-10.1) mg/dL Troponin I 0.094 H* (0.000-0.056) ng/mL C-Reactive Protein (0.0-0.3) mg/dL TSH, Ultra Sensitive (0.358-3.740) uIU/mL 10/01/18 10/01/18 10/01/18 Range/Units 15:07 16:39 16:39 WBC (4.5-11.0) K/uL RBC (3.30-5.50) M/uL Hgb (12.0-15.0) g/dL Hct (36.0-48.0) % MCV (80-98) fL MCH (27-31) pg MCHC (32-36) % Plt Count (150-400) K/uL Sodium (140-148) mmol/L Potassium (3.6-5.2) mmol/L Chloride (100-108) mmol/L Carbon Dioxide (21-32) mmol/L Anion Gap (5.0-14.0) mmol/L BUN (7-18) mg/dL Creatinine (0.6-1.0) mg/dL Est Cr Clr Drug Dosing mL/min Estimated GFR (MDRD) (>60) Glucose (74-106) mg/dL Lactic Acid 2.8 H (0.4-2.0) mmol/L Calcium (8.5-10.1) mg/dL Troponin I (0.000-0.056) ng/mL C-Reactive Protein 0.13 (0.0-0.3) mg/dL TSH, Ultra Sensitive 2.073 (0.358-3.740) uIU/mL Meds: Medications Generic Name Dose Route Start Last Admin Trade Name Freq PRN Reason Stop Dose Admin Lactated Ringer's 1,000 mls @ 150 mls/hr 10/01/18 16:45 10/01/18 16:43 Ringers, Lactated IV 150 mls/hr ASDIRECTED AZIZA Administration Discontinued Medications Generic Name Dose Route Start Last Admin Trade Name Freq PRN Reason Stop Dose Admin Lactated Ringer's 1,000 mls @ 1,000 mls/hr 10/01/18 15:00 10/01/18 15:25 Ringers, Lactated IV 10/01/18 15:59 1,000 mls/hr BOLUS ONE Administration Departure - Departure Time of Disposition: 17:36 Disposition: Refer to Observation Condition: Fair Clinical Impression: Weakness, Dehydration Hypotension Qualifiers: Hypotension type: other hypotension type Qualified Code(s): I95.89 - Other hypotension Syncope Qualifiers: Syncope type: unspecified Qualified Code(s): R55 - Syncope and collapse Referrals: Nathaly Adams PA-C [Primary Care Provider] - Forms: ED Department Discharge - My Orders Last 24 Hours: My Active Orders 10/01/18 14:53 Cardiac Monitoring [RC] .As Directed 10/01/18 15:00 UA W/MICROSCOPIC [URIN] Stat 10/01/18 15:01 EKG Documentation Completion [RC] ASDIRECTED EKG 12 Lead [EK] Routine 10/01/18 16:45 Lactated Ringers [Ringers, Lactated] 1,000 ml IV ASDIRECTED - Assessment/Plan Last 24 Hours: My Active Orders 10/01/18 14:53 Cardiac Monitoring [RC] .As Directed 10/01/18 15:00 UA W/MICROSCOPIC [URIN] Stat 10/01/18 15:01 EKG Documentation Completion [RC] ASDIRECTED EKG 12 Lead [EK] Routine 10/01/18 16:45 Lactated Ringers [Ringers, Lactated] 1,000 ml IV ASDIRECTED
[2018-10-01] MEDS ORDERED: Lactated Ringers 1,000 ML IV SCH ×2 (16:45→18:57)
--- NOTE | 2018-10-01 18:01 | PCM.HP ---
H&P History of Present Illness - General Date of Service: 10/01/18 Admit Problem/Dx: Admission Diagnosis/Problem Admission Diagnosis/Problem Dehydration Source of Information: Patient, Family, Old Records, Provider, RN Notes Reviewed History Limitations: Reports: No Limitations - History of Present Illness Initial Comments - Free Text/Narative: Ms. Larson is a 78-year-old woman who is admitted to observation status through the emergency department for further management of weakness and underlying dehydration. She has a known history of severe oxygen-dependent COPD as well as chronic kidney disease stage IV. Over the last 2 weeks she has had difficulty with increased weakness and during that period of time has had 2 different falls. Associated with the falls have been pain in her right shoulder and anterior chest wall. CT scan and x-rays have been obtained showing no evidence of fracture. Over the past 2 weeks her oral intake is also been diminished especially worse over the past few days when she has not had much of anything in. This morning was found to be extremely weak to the point that she was unable to transfer or ambulate. Ambulance was called and she was found to be hypotensive. On evaluation in the emergency department she is noted to have an increase in her creatinine from baseline although relatively mild. Lactic acid level is mildly elevated likely secondary to dehydration. White blood cell count is normal and other than her renal function there are no significant electrolyte or metabolic abnormalities identified. Urinalysis has been obtained the results which are pending at the time of this dictation. Left Arm Pain Score (Numeric/FACES): 7 - Related Data Allergies/Adverse Reactions: Allergies Allergy/AdvReac Type Severity Reaction Status Date / Time Sulfa (Sulfonamide Allergy Cannot Verified 10/01/18 14:52 Antibiotics) Remember atorvastatin AdvReac Abdominal Verified 10/01/18 14:52 Pain ibuprofen [From Motrin] AdvReac Stomach Verified 10/01/18 14:52 Upset Home Medications: Home Meds Aspirin [Ecotrin] 162 mg PO DAILY 08/15/14 [History] Cholecalciferol (Vitamin D3) [Vitamin D3] 2,000 unit PO DAILY 08/15/14 [History] Citalopram Hydrobromide [Celexa] 30 mg PO DAILY 08/15/14 [History] Levothyroxine [Synthroid] 88 mcg PO DAILY 08/15/14 [History] Metoprolol Succinate [Toprol Xl] 150 mg PO DAILY 08/15/14 [History] Omeprazole [Prilosec] 20 mg PO QAM 08/15/14 [History] hydroCHLOROthiazide [Hydrochlorothiazide] 12.5 mg PO DAILY 08/15/14 [History] Gabapentin [Neurontin] 100 mg PO ASDIRECTED PRN 07/11/17 [History] Multivitamin with Minerals [Multiple Vitamin] 1 tab PO DAILY 07/11/17 [History] Nystatin 100,000 unit TOP BID 07/11/17 [History] Triamcinolone Acetonide [Kenalog 0.1% Crm] 0.1 percent TOP BID 07/11/17 [History ] Albuterol [Proventil Neb Soln] 3 ml INH Q6H PRN 04/22/18 [History] Cyanocobalamin/FA/Pyridoxine [Virt-Liset Forte Tablet] 1 each PO DAILY 04/29/18 [ History] Lisinopril 5 mg PO DAILY 04/29/18 [History] Ondansetron HCl [Zofran] 4 mg PO Q8H PRN 04/29/18 [History] Rosuvastatin [Crestor] 10 mg PO DAILY 04/29/18 [History] Sucralfate [Carafate] 1 gm PO QIDACANDBED 04/29/18 [History] predniSONE [Prednisone] 10 mg PO DAILY #10 tablet 09/28/18 [Rx] Past Medical History HEENT History: Reports: Impaired Vision Other HEENT History: wears glasses Cardiovascular History: Reports: CAD, Hypertension, SOB on Exertion, Other (See Below) Other Cardiovascular History: carotid artery disease-peripheral artery disease- abdom. aortic aneurysm repair Respiratory History: Reports: COPD, SOB Gastrointestinal History: Reports: Chronic Diarrhea, Colon Polyp, GERD Genitourinary History: Reports: UTI, Recurrent, Other (See Below) Other Genitourinary History: chronic kidney disease stage 3 [employer] History: Reports: Dysfunctional Uterine Bleeding Musculoskeletal History: Reports: Back Pain, Chronic, Fracture, Osteoarthritis Other Musculoskeletal History: chronic degenerative back disease Psychiatric History: Reports: Depression, Psych Hospitalization(s), Suicide Attempt, Suicidal Ideation Endocrine/Metabolic History: Reports: Hypothyroidism Hematologic History: Reports: Anemia Dermatologic History: Reports: Other (See Below) Other Dermatologic History: "picks at skin" - Infectious Disease History Infectious Disease History: Reports: Chicken Pox - Past Surgical History Head Surgeries/Procedures: Reports: None HEENT Surgical History: Reports: Cataract Surgery Cardiovascular Surgical History: Reports: AAA Repair GI Surgical History: Reports: Appendectomy, Cholecystectomy, Colonoscopy, Polypectomy Female Surgical History: Reports: Hysterectomy, Salpingo-Oophorectomy Endocrine Surgical History: Reports: None Musculoskeletal Surgical History: Reports: Carpal Tunnel Dermatological Surgical History: Reports: None Social & Family History - Family History Family Medical History: Noncontributory - Tobacco Use Smoking Status *Q: Never Smoker - Caffeine Use Caffeine Use: Reports: None - Recreational Drug Use Recreational Drug Use: No - Living Situation & Occupation Living situation: Reports: , with Spouse Occupation: Disabled H&P Review of Systems - Review of Systems: Review Of Systems: See Below General: Reports: Weakness, Decreased Appetite. Denies: Fever, Chills HEENT: Reports: No Symptoms Pulmonary: Reports: Shortness of Breath. Denies: Wheezing, Pleuritic Chest Pain , Cough, Sputum, Hemoptysis Cardiovascular: Reports: Dyspnea on Exertion, Lightheadedness. Denies: Chest Pain, Palpitations, Orthopnea, PND, Edema Gastrointestinal: Reports: No Symptoms Genitourinary: Reports: No Symptoms Musculoskeletal: Reports: Other (Right shoulder and chest wall pain) Skin: Reports: No Symptoms Psychiatric: Reports: No Symptoms Neurological: Reports: No Symptoms Hematologic/Lymphatic: Reports: No Symptoms Immunologic: Reports: No Symptoms Exam - Exam Exam: See Below - Vital Signs Vital Signs: Last Vital Signs Temp 97.8 F 10/01/18 14:47 Pulse 68 10/01/18 17:26 Resp 18 10/01/18 17:26 BP 131/65 10/01/18 17:26 Pulse Ox 96 10/01/18 17:26 Orthostatic Blood Pressure [ 74/46 Sitting] Orthostatic Blood Pressure [ 82/38 Supine] Weight: 179 lb - Exam Quality Assessment: Supplemental Oxygen, DVT Prophylaxis General: Alert, Oriented, Cooperative, Mild Distress HEENT: Conjunctiva Clear, Hearing Intact, Normal Nasal Septum, Posterior Pharynx Clear, Pupils Equal. No: Mucosa Moist & [place]: Supple, Trachea Midline, +2 Carotid Pulse wo Bruit Lungs: Decreased Breath Sounds. No: Rales, Rhonchi, Wheezing Cardiovascular: Regular Rate, Regular Rhythm, Normal S1, Normal S2. No: Systolic Murmur, Diastolic Murmur GI/Abdominal Exam: Soft, Non-Tender, No Organomegaly, No Distention Back Exam: Normal Inspection, Full Range of Motion Extremities: Non-Tender, No Pedal Edema Skin: Warm, Dry, Intact Neurological: Cranial Nerves Intact, Strength Equal Bilateral, Normal Speech, Normal Tone, Sensation Intact. No: Focal Deficit Neuro Extensive - Mental Status: Alert, Oriented x3, Normal Mood/Affect, Normal Cognition, Memory Intact - Patient Data Lab Results Last 24 hrs: Laboratory Results - last 24 hr 10/01/18 10/01/18 10/01/18 Range/Units 15:07 15:07 15:07 WBC 9.8 (4.5-11.0) K/uL RBC 3.18 L (3.30-5.50) M/uL Hgb 10.0 L (12.0-15.0) g/dL Hct 32.1 L (36.0-48.0) % MCV 101 H (80-98) fL MCH 31 (27-31) pg MCHC 31 L (32-36) % Plt Count 322 (150-400) K/uL Sodium 137 L (140-148) mmol/L Potassium 4.2 (3.6-5.2) mmol/L Chloride 105 (100-108) mmol/L Carbon Dioxide 19 L (21-32) mmol/L Anion Gap 17.2 H (5.0-14.0) mmol/L BUN 57 H (7-18) mg/dL Creatinine 2.9 H (0.6-1.0) mg/dL Est Cr Clr Drug Dosing 11.30 mL/min Estimated GFR (MDRD) 16 L (>60) Glucose 147 H (74-106) mg/dL Lactic Acid (0.4-2.0) mmol/L Calcium 9.1 (8.5-10.1) mg/dL Troponin I 0.094 H* (0.000-0.056) ng/mL C-Reactive Protein (0.0-0.3) mg/dL TSH, Ultra Sensitive (0.358-3.740) uIU/mL 10/01/18 10/01/18 10/01/18 Range/Units 15:07 16:39 16:39 WBC (4.5-11.0) K/uL RBC (3.30-5.50) M/uL Hgb (12.0-15.0) g/dL Hct (36.0-48.0) % MCV (80-98) fL MCH (27-31) pg MCHC (32-36) % Plt Count (150-400) K/uL Sodium (140-148) mmol/L Potassium (3.6-5.2) mmol/L Chloride (100-108) mmol/L Carbon Dioxide (21-32) mmol/L Anion Gap (5.0-14.0) mmol/L BUN (7-18) mg/dL Creatinine (0.6-1.0) mg/dL Est Cr Clr Drug Dosing mL/min Estimated GFR (MDRD) (>60) Glucose (74-106) mg/dL Lactic Acid 2.8 H (0.4-2.0) mmol/L Calcium (8.5-10.1) mg/dL Troponin I (0.000-0.056) ng/mL C-Reactive Protein 0.13 (0.0-0.3) mg/dL TSH, Ultra Sensitive 2.073 (0.358-3.740) uIU/mL Result Diagrams: 10/01/18 15:07 10/01/18 15:07 *Q Meaningful Use (ADM) - VTE Risk Assess *Q Each Risk Factor Represents 1 Point: Obesity ( BMI > 25 kg/m2), Abnormal Pulmonary Function (COPD) Total Score 1 Point Risk Factors: 2 Each Risk Factor Represents 2 Points: None Total Score 2 Point Risk Factors: 0 Each Risk Factor Represents 3 Points: Age 75 Years or Greater Total Score 3 Point Risk Factors: 3 Each Risk Factor Represents 5 Points: None Total Score 5 Point Risk Factors: 0 Venous Thromboembolism Risk Factor Score *Q: 5 Problem List Initiated/Reviewed/Updated: Yes Orders Last 24hrs: Active Orders 24 hr Category Date Time Status Patient Status Manage Transfer [TRANSFER] Routine ADT 10/01/18 17:46 Ordered Cardiac Monitoring [RC] .As Directed Care 10/01/18 14:53 Active EKG Documentation Completion [RC] ASDIRECTED Care 10/01/18 15:01 Active UA W/MICROSCOPIC [URIN] Stat Lab 10/01/18 15:00 Ordered Lactated Ringers [Ringers, Lactated] 1,000 ml Med 10/01/18 16:45 Active IV ASDIRECTED Resuscitation Status Routine Resus Stat 10/01/18 17:49 Ordered EKG 12 Lead [EK] Routine Ther 10/01/18 15:01 Ordered Medication Orders Lactated Ringer's (Ringers, Lactated) 1,000 mls @ 150 mls/hr IV ASDIRECTED AZIZA Last Admin: 10/01/18 16:43 Dose: 150 mls/hr Assessment/Plan Comment:: ASSESSMENT AND PLAN PROGRESSIVE WEAKNESS AND DEHYDRATION-no specific etiology identified on evaluation, other than poor oral intake over the past few days. -Urinalysis pending -IV fluids for hydration -Follow-up labs in a.m. ACUTE ON CHRONIC KIDNEY INJURY-creatinine modestly elevated from baseline, likely secondary to dehydration. At baseline has chronic kidney disease stage IV -Closely monitor urine output -IV fluids as above -Reassess renal function in a.m. SEVERE OXYGEN-DEPENDENT COPD-no evidence of acute exacerbation or underlying respiratory tract infection -Supplemental oxygen as needed -Continue outpatient medications MAINTENANCE ISSUES -DVT prophylaxis; Lovenox 30 mg subcutaneous daily -GI prophylaxis; continue outpatient PPI therapy -[place] catheter; not indicated -Nutrition; 2 g sodium diet -Nicotine dependence; not required CODE STATUS-FULL CODE ADMISSION STATUS-this patient will be admitted to observation status, expect no more than a one night hospital stay for evaluation and management of problems as outlined above. DISPOSITION-anticipate discharge to home after the hospital stay. PRIMARY CARE PROVIDER-Gabrielle Adams
[2018-10-01] MEDS ORDERED: Ondansetron 4 MG/2 ML SDV IV PRN (18:57)
[2018-10-01] MEDS ORDERED: Polyethylene Glycol 3350 Powder 17 GM Packet PO PRN (18:57)
[2018-10-01] MEDS ORDERED: Albuterol 0.083% 2.5 MG/3 ML Neb Soln NEB PRN (18:57)
[2018-10-01] MEDS ORDERED: Gabapentin 100 MG Cap PO PRN (18:57)
[2018-10-01] MEDS ORDERED: Albuterol 0.083% 2.5 MG/3 ML Neb Soln INH PRN (18:57)
[2018-10-01] MEDS ORDERED: Enoxaparin 30 MG/0.3 ML Syringe SUBCUT SCH (18:57)
[2018-10-01] MEDS ORDERED: Sodium Chloride 0.9% 10 ML Syringe FLUSH PRN (18:57)
[2018-10-01] MEDS ORDERED: Diphtheria,Pertussis(Acell),Tetanus Vaccine 0.5 ML SDV IM ONE (19:23)
[2018-10-01] MEDS: cefTRIAXone 1 GM in Sodium Chloride 0.9% 50 ML IV SCH (19:44)
[2018-10-01] MEDS: Sucralfate 1 GM Tab PO SCH (19:50)
[2018-10-02] MEDS: Acetaminophen 325 MG Tab PO PRN ×4 (01:23→20:22)
[2018-10-02] MEDS: Metoprolol Succinate 50 MG Tab.ER PO SCH (09:00)
[2018-10-02] MEDS: Lisinopril 5 MG Tab PO SCH (09:00)
[2018-10-02] MEDS ORDERED: Aspirin 81 MG Tab.EC PO SCH (09:00)
[2018-10-02] MEDS: Hydrochlorothiazide 12.5 MG Cap PO SCH (09:00)
[2018-10-02] MEDS: Pantoprazole 40 MG Tab.CR PO SCH ×2 (10:55→13:58)
[2018-10-02] MEDS: Levothyroxine 88 MCG Tab PO SCH ×2 (10:55→13:58)
[2018-10-02] MEDS: Sucralfate 1 GM Tab PO SCH ×4 (10:55→20:25)
[2018-10-02] MEDS: Citalopram 10 MG Tab PO SCH (13:57)
[2018-10-02] MEDS: Rosuvastatin 10 MG Tab PO SCH (13:57)
[2018-10-02] MEDS ORDERED: Diphtheria,Pertussis(Acell),Tetanus Vaccine 0.5 ML SDV IM ONE (14:30)
--- NOTE | 2018-10-02 15:06 | PCM.PN ---
- General Info Date of Service: 10/02/18 Subjective Update: Ms. Larson has felt improved since admission, no further melenic or dark maroon stools since admission. Hemoglobin did drop with hydration, but improved after last check late morning. She denies any significant abdominal pain, does feel very fatigued but feels that her weakness has improved since admission. No lightheadedness or fever, vital signs stable. Functional Status: Reports: Tolerating Diet, Urinating - Review of Systems General: Reports: Weakness. Denies: Fever, Chills Pulmonary: Reports: No Symptoms Cardiovascular: Reports: No Symptoms Gastrointestinal: Reports: Melena. Denies: Abdominal Pain, Decreased Appetite, Difficulty Swallowing, Nausea, Vomiting Genitourinary: Reports: No Symptoms - Patient Data Vitals - Most Recent: Last Vital Signs Temp 98.1 F 10/02/18 10:55 Pulse 50 L 10/02/18 10:55 Resp 16 10/02/18 10:55 BP 125/63 10/02/18 10:55 Pulse Ox 97 10/02/18 10:55 Orthostatic Blood Pressure [ 74/46 Sitting] Orthostatic Blood Pressure [ 82/38 Supine] Weight - Most Recent: 143 lb I&O - Last 24 Hours: Intake & Output 10/02/18 10/02/18 10/02/18 06:59 14:59 22:59 Intake Total 1168 420 Output Total 300 300 Balance 868 120 Lab Results Last 24 Hours: Laboratory Results - last 24 hr 10/01/18 10/01/18 10/01/18 Range/Units 15:00 15:07 15:07 WBC 9.8 (4.5-11.0) K/uL RBC 3.18 L (3.30-5.50) M/uL Hgb 10.0 L (12.0-15.0) g/dL Hct 32.1 L (36.0-48.0) % MCV 101 H (80-98) fL MCH 31 (27-31) pg MCHC 31 L (32-36) % Plt Count 322 (150-400) K/uL Neut % (Auto) (36-66) % Lymph % (Auto) (24-44) % [place] % (Auto) (2-6) % Eos % (Auto) (2-4) % Baso % (Auto) (0-1) % Sodium 137 L (140-148) mmol/L Potassium 4.2 (3.6-5.2) mmol/L Chloride 105 (100-108) mmol/L Carbon Dioxide 19 L (21-32) mmol/L Anion Gap 17.2 H (5.0-14.0) mmol/L BUN 57 H (7-18) mg/dL Creatinine 2.9 H (0.6-1.0) mg/dL Est Cr Clr Drug Dosing 11.30 mL/min Estimated GFR (MDRD) 16 L (>60) Glucose 147 H (74-106) mg/dL Lactic Acid (0.4-2.0) mmol/L Calcium 9.1 (8.5-10.1) mg/dL Troponin I (0.000-0.056) ng/mL C-Reactive Protein (0.0-0.3) mg/dL TSH, Ultra Sensitive (0.358-3.740) uIU/mL Urine Color Yellow Urine Appearance Slightly cloudy Urine pH 5.0 (4.5-8.0) Ur Specific [place] 1.015 (1.008-1.030) Urine Protein 30 H (NEGATIVE) mg/dL Urine Glucose (UA) Normal (NEGATIVE) mg/dL Urine Ketones Negative (NEGATIVE) mg/dL Urine Occult Blood Moderate (NEGATIVE) Urine Nitrite Negative (NEGATIVE) Urine Bilirubin Negative (NEGATIVE) Urine Urobilinogen Normal (NORMAL) mg/dL Ur Leukocyte Esterase Large (NEGATIVE) Urine RBC 5-10 H (0-5) Urine WBC 20-30 H (0-5) Ur Epithelial Cells Few Amorphous Sediment Moderate Urine Bacteria Many Urine Mucus Not seen Blood Type Gel Antibody Screen Crossmatch 10/01/18 10/01/18 10/01/18 Range/Units 15:07 15:07 16:39 WBC (4.5-11.0) K/uL RBC (3.30-5.50) M/uL Hgb (12.0-15.0) g/dL Hct (36.0-48.0) % MCV (80-98) fL MCH (27-31) pg MCHC (32-36) % Plt Count (150-400) K/uL Neut % (Auto) (36-66) % Lymph % (Auto) (24-44) % [place] % (Auto) (2-6) % Eos % (Auto) (2-4) % Baso % (Auto) (0-1) % Sodium (140-148) mmol/L Potassium (3.6-5.2) mmol/L Chloride (100-108) mmol/L Carbon Dioxide (21-32) mmol/L Anion Gap (5.0-14.0) mmol/L BUN (7-18) mg/dL Creatinine (0.6-1.0) mg/dL Est Cr Clr Drug Dosing mL/min Estimated GFR (MDRD) (>60) Glucose (74-106) mg/dL Lactic Acid 2.8 H (0.4-2.0) mmol/L Calcium (8.5-10.1) mg/dL Troponin I 0.094 H* (0.000-0.056) ng/mL C-Reactive Protein (0.0-0.3) mg/dL TSH, Ultra Sensitive 2.073 (0.358-3.740) uIU/mL Urine Color Urine Appearance Urine pH (4.5-8.0) Ur Specific [place] (1.008-1.030) Urine Protein (NEGATIVE) mg/dL Urine Glucose (UA) (NEGATIVE) mg/dL Urine Ketones (NEGATIVE) mg/dL Urine Occult Blood (NEGATIVE) Urine Nitrite (NEGATIVE) Urine Bilirubin (NEGATIVE) Urine Urobilinogen (NORMAL) mg/dL Ur Leukocyte Esterase (NEGATIVE) Urine RBC (0-5) Urine WBC (0-5) Ur Epithelial Cells Amorphous Sediment Urine Bacteria Urine Mucus Blood Type Gel Antibody Screen Crossmatch 10/01/18 10/01/18 10/01/18 Range/Units 16:39 19:02 23:00 WBC (4.5-11.0) K/uL RBC (3.30-5.50) M/uL Hgb (12.0-15.0) g/dL Hct (36.0-48.0) % MCV (80-98) fL MCH (27-31) pg MCHC (32-36) % Plt Count (150-400) K/uL Neut % (Auto) (36-66) % Lymph % (Auto) (24-44) % [place] % (Auto) (2-6) % Eos % (Auto) (2-4) % Baso % (Auto) (0-1) % Sodium (140-148) mmol/L Potassium (3.6-5.2) mmol/L Chloride (100-108) mmol/L Carbon Dioxide (21-32) mmol/L Anion Gap (5.0-14.0) mmol/L BUN (7-18) mg/dL Creatinine (0.6-1.0) mg/dL Est Cr Clr Drug Dosing mL/min Estimated GFR (MDRD) (>60) Glucose (74-106) mg/dL Lactic Acid (0.4-2.0) mmol/L Calcium (8.5-10.1) mg/dL Troponin I 0.054 (0.000-0.056) ng/mL C-Reactive Protein 0.13 (0.0-0.3) mg/dL TSH, Ultra Sensitive (0.358-3.740) uIU/mL Urine Color Urine Appearance Urine pH (4.5-8.0) Ur Specific [place] (1.008-1.030) Urine Protein (NEGATIVE) mg/dL Urine Glucose (UA) (NEGATIVE) mg/dL Urine Ketones (NEGATIVE) mg/dL Urine Occult Blood (NEGATIVE) Urine Nitrite (NEGATIVE) Urine Bilirubin (NEGATIVE) Urine Urobilinogen (NORMAL) mg/dL Ur Leukocyte Esterase (NEGATIVE) Urine RBC (0-5) Urine WBC (0-5) Ur Epithelial Cells Amorphous Sediment Urine Bacteria Urine Mucus Blood Type A POSITIVE Gel Antibody Screen Negative Crossmatch See Detail 10/01/18 10/01/18 10/02/18 Range/Units 23:00 23:00 05:00 WBC (4.5-11.0) K/uL RBC (3.30-5.50) M/uL Hgb 9.7 L (12.0-15.0) g/dL Hct (36.0-48.0) % MCV (80-98) fL MCH (27-31) pg MCHC (32-36) % Plt Count (150-400) K/uL Neut % (Auto) (36-66) % Lymph % (Auto) (24-44) % [place] % (Auto) (2-6) % Eos % (Auto) (2-4) % Baso % (Auto) (0-1) % Sodium 141 (140-148) mmol/L Potassium 4.0 (3.6-5.2) mmol/L Chloride 110 H (100-108) mmol/L Carbon Dioxide 22 (21-32) mmol/L Anion Gap 13.0 (5.0-14.0) mmol/L BUN 52 H (7-18) mg/dL Creatinine 2.1 H (0.6-1.0) mg/dL Est Cr Clr Drug Dosing 15.60 mL/min Estimated GFR (MDRD) 23 L (>60) Glucose 94 (74-106) mg/dL Lactic Acid 1.9 (0.4-2.0) mmol/L Calcium 8.6 (8.5-10.1) mg/dL Troponin I 0.057 H (0.000-0.056) ng/mL C-Reactive Protein (0.0-0.3) mg/dL TSH, Ultra Sensitive (0.358-3.740) uIU/mL Urine Color Urine Appearance Urine pH (4.5-8.0) Ur Specific [place] (1.008-1.030) Urine Protein (NEGATIVE) mg/dL Urine Glucose (UA) (NEGATIVE) mg/dL Urine Ketones (NEGATIVE) mg/dL Urine Occult Blood (NEGATIVE) Urine Nitrite (NEGATIVE) Urine Bilirubin (NEGATIVE) Urine Urobilinogen (NORMAL) mg/dL Ur Leukocyte Esterase (NEGATIVE) Urine RBC (0-5) Urine WBC (0-5) Ur Epithelial Cells Amorphous Sediment Urine Bacteria Urine Mucus Blood Type Gel Antibody Screen Crossmatch 10/02/18 10/02/18 Range/Units 05:00 10:22 WBC 8.1 (4.5-11.0) K/uL RBC 2.73 L (3.30-5.50) M/uL Hgb 8.5 L 9.6 L (12.0-15.0) g/dL Hct 27.6 L (36.0-48.0) % MCV 101 H (80-98) fL MCH 31 (27-31) pg MCHC 31 L (32-36) % Plt Count 253 (150-400) K/uL Neut % (Auto) 67 H (36-66) % Lymph % (Auto) 24 (24-44) % [place] % (Auto) 9 H (2-6) % Eos % (Auto) 1 L (2-4) % Baso % (Auto) 0 (0-1) % Sodium (140-148) mmol/L Potassium (3.6-5.2) mmol/L Chloride (100-108) mmol/L Carbon Dioxide (21-32) mmol/L Anion Gap (5.0-14.0) mmol/L BUN (7-18) mg/dL Creatinine (0.6-1.0) mg/dL Est Cr Clr Drug Dosing mL/min Estimated GFR (MDRD) (>60) Glucose (74-106) mg/dL Lactic Acid (0.4-2.0) mmol/L Calcium (8.5-10.1) mg/dL Troponin I (0.000-0.056) ng/mL C-Reactive Protein (0.0-0.3) mg/dL TSH, Ultra Sensitive (0.358-3.740) uIU/mL Urine Color Urine Appearance Urine pH (4.5-8.0) Ur Specific [place] (1.008-1.030) Urine Protein (NEGATIVE) mg/dL Urine Glucose (UA) (NEGATIVE) mg/dL Urine Ketones (NEGATIVE) mg/dL Urine Occult Blood (NEGATIVE) Urine Nitrite (NEGATIVE) Urine Bilirubin (NEGATIVE) Urine Urobilinogen (NORMAL) mg/dL Ur Leukocyte Esterase (NEGATIVE) Urine RBC (0-5) Urine WBC (0-5) Ur Epithelial Cells Amorphous Sediment Urine Bacteria Urine Mucus Blood Type Gel Antibody Screen Crossmatch Tristan Results Last 24 Hours: Microbiology 10/01/18 18:30 Stool Occult Blood (TRISTAN) - Final Stool / Feces Med Orders - Current: Current Medications Acetaminophen (Tylenol) 650 mg PO Q4H PRN PRN Reason: Pain (Mild 1-3)/fever Last Admin: 10/02/18 13:12 Dose: 650 mg Albuterol (Proventil Neb Soln) 2.5 mg NEB Q4H PRN PRN Reason: Shortness Of Breath/wheezing Citalopram Hydrobromide (Celexa) 30 mg PO DAILY [facility] Last Admin: 10/02/18 13:57 Dose: 30 mg Gabapentin (Neurontin) 100 mg PO ASDIRECTED PRN PRN Reason: Pain Hydrochlorothiazide (Hydrochlorothiazide) 12.5 mg PO DAILY [facility] Last Admin: 10/02/18 09:00 Dose: Not Given Ceftriaxone Sodium 1 gm/ (Sodium Chloride) 50 mls @ 100 mls/hr IV Q24H [facility] Last Admin: 10/01/18 19:44 Dose: 100 mls/hr Lactated Ringer's (Ringers, Lactated) 1,000 mls @ 75 mls/hr IV ASDIRECTED [facility] Levothyroxine Sodium (Synthroid) 88 mcg PO ACBREAKFAST [facility] Last Admin: 10/02/18 13:58 Dose: 88 mcg Lisinopril (Prinivil) 5 mg PO DAILY [facility] Last Admin: 10/02/18 09:00 Dose: Not Given Metoprolol Succinate (Toprol Xl) 150 mg PO DAILY [facility] Last Admin: 10/02/18 09:00 Dose: Not Given Ondansetron HCl (Zofran) 4 mg IV Q4H PRN PRN Reason: Nausea/Vomiting Pantoprazole Sodium (Protonix) 40 mg PO ACBREAKFAST [facility] Last Admin: 10/02/18 13:58 Dose: 40 mg Pantoprazole Sodium (Protonix Iv) 40 mg IVPUSH Q12H [facility] Polyethylene Glycol (Miralax) 17 gm PO DAILY PRN PRN Reason: Constipation Rosuvastatin Calcium (Crestor) 10 mg PO DAILY [facility] Last Admin: 10/02/18 13:57 Dose: 10 mg Sodium Chloride (Saline Flush) 10 ml FLUSH ASDIRECTED PRN PRN Reason: Keep Vein Open Sucralfate (Carafate) 1 gm PO QIDACANDBED [facility] Last Admin: 10/02/18 12:29 Dose: Not Given Discontinued Medications Albuterol (Proventil Neb Soln) 2.5 mg INH Q6H PRN PRN Reason: Shortness of Breath Aspirin (Halfprin) 162 mg PO DAILY [facility] Last Admin: 10/02/18 13:57 Dose: 162 mg Diphtheria/Tetanus/Acell Pertussis (Adacel) 0.5 ml IM .ONCE ONE Stop: 10/02/18 14:31 Last Admin: 10/02/18 14:34 Dose: 0.5 ml Enoxaparin Sodium (Lovenox) 30 mg SUBCUT DAILY [facility] Last Admin: 10/01/18 19:50 Dose: 30 mg Enoxaparin Sodium (Lovenox) 30 mg SUBCUT QPM [facility] Lactated Ringer's (Ringers, Lactated) 1,000 mls @ 1,000 mls/hr IV BOLUS ONE Stop: 10/01/18 15:59 Last Admin: 10/01/18 15:25 Dose: 1,000 mls/hr Lactated Ringer's (Ringers, Lactated) 1,000 mls @ 150 mls/hr IV ASDIRECTED [facility] Last Admin: 10/01/18 16:43 Dose: 150 mls/hr Lactated Ringer's (Ringers, Lactated) 1,000 mls @ 125 mls/hr IV ASDIRECTED [facility] Last Admin: 10/02/18 01:25 Dose: 125 mls/hr - Exam Quality Assessment: DVT Prophylaxis General: Alert, Oriented, Cooperative, Mild Distress Lungs: Clear to Auscultation, Normal Respiratory Effort Cardiovascular: Regular Rate, Regular Rhythm, No Murmurs GI/Abdominal Exam: Soft, Non-Tender, No Organomegaly, No Distention Extremities: Non-Tender, No Pedal Edema - Problem List Review Problem List Initiated/Reviewed/Updated: Yes - My Orders Last 24 Hours: My Active Orders 10/01/18 17:49 Resuscitation Status Routine 10/01/18 18:57 Ambulate [RC] QID Height and Weight [RC] DAILY Intake and Output [RC] QSHIFT Notify Provider Vital Signs [RC] ASDIRECTED Oxygen Therapy [RC] PRN Peripheral IV Care [RC] . DIRECTED RT Aerosol Therapy [RC] ASDIRECTED Up With Assistance [RC] ASDIRECTED Up to Chair [RC] QID VTE/DVT Education [RC] Per Unit Routine Vital Signs [RC] Q4H Acetaminophen [Tylenol] 650 mg PO Q4H PRN Albuterol [Proventil Neb Soln] 2.5 mg NEB Q4H PRN Gabapentin [Neurontin] 100 mg PO ASDIRECTED PRN Ondansetron [Zofran] 4 mg IV Q4H PRN Polyethylene Glycol 3350 [MiraLAX] 17 gm PO DAILY PRN Sodium Chloride 0.9% [Saline Flush] 10 ml FLUSH ASDIRECTED PRN Peripheral IV Insertion Adult [OM.PC] Routine 10/01/18 19:01 Dietary Supplements [RC] BIDMEALS 10/01/18 19:02 RED BLOOD CELLS LP [BBK] Routine TYPE AND SCREEN [BBK] Routine 10/01/18 19:03 CULTURE URINE [RM] Stat 10/01/18 19:24 Vaccines to be Administered [RC] PER UNIT ROUTINE 10/01/18 20:00 Sucralfate [Carafate] 1 gm PO QIDACANDBED cefTRIAXone [Rocephin] 1 gm Sodium Chloride 0.9% [Normal Saline] 50 ml IV Q24H 10/02/18 07:30 Levothyroxine [Synthroid] 88 mcg PO ACBREAKFAST Pantoprazole [ProTONIX] 40 mg PO ACBREAKFAST 10/02/18 09:00 Citalopram [Celexa] 30 mg PO DAILY Lisinopril [Prinivil] 5 mg PO DAILY Metoprolol Succinate [Toprol XL] 150 mg PO DAILY Rosuvastatin [Crestor] 10 mg PO DAILY hydroCHLOROthiazide 12.5 mg PO DAILY 10/02/18 14:55 Consult to Physician [CONS] Routine 10/02/18 14:56 Notify Provider Consults [RC] ASDIRECTED 10/02/18 14:59 Patient Status [ADT] Routine 10/02/18 15:00 Lactated Ringers [Ringers, Lactated] 1,000 ml IV ASDIRECTED Pantoprazole [ProTONIX IV] 40 mg IVPUSH Q12H 10/02/18 17:00 HGB [HEMOGLOBIN] [HEME] Stat 10/02/18 23:00 HGB [HEMOGLOBIN] [HEME] Stat 10/02/18 Lunch Clear Liquid Diet [DIET] 10/03/18 05:00 BASIC METABOLIC PANEL,BMP [CHEM] Timed CBC WITH AUTO DIFF [HEME] Timed 10/03/18 Breakfast Nothing per Oral After Midnight Diet [DIET] - Plan Plan:: ASSESSMENT AND PLAN PROGRESSIVE WEAKNESS AND DEHYDRATION-likely secondary to poor oral intake, probable GI bleed, urinary tract infection -IV fluids for hydration -Follow-up labs in a.m. PROBABLE UPPER GI BLEED-just after admission had a dark maroon/melenic stool. Found to be heme positive, no evidence of bleeding since that time -Serial hemoglobin levels -2 units of blood on hold -Protonix 40 mg IV every 12 hours -Nothing by mouth after midnight -Surgery consult Dr. Jacob, [facility] in a.m. URINARY TRACT INFECTION-urinalysis obtained after admission consistent with infection -Rocephin 1 g IV every 24 hours -Urine culture pending ACUTE ON CHRONIC KIDNEY INJURY-renal function improved and back to baseline following hydration -Closely monitor urine output -Reassess renal function in a.m. SEVERE OXYGEN-DEPENDENT COPD-no evidence of acute exacerbation or underlying respiratory tract infection -Supplemental oxygen as needed -Continue outpatient medications MAINTENANCE ISSUES -DVT prophylaxis; SCUDs, hold anticoagulation because of acute bleeding -GI prophylaxis; continue outpatient PPI therapy -Mcmullen catheter; not indicated -Nutrition; 2 g sodium diet -Nicotine dependence; not required CODE STATUS-FULL CODE ADMISSION STATUS-this patient will be admitted to observation status, expect no more than a one night hospital stay for evaluation and management of problems as outlined above. DISPOSITION-anticipate discharge to home after the hospital stay. PRIMARY CARE PROVIDER-Gabrielle Adams
[2018-10-02] MEDS: Pantoprazole 40 MG Vial IVPUSH SCH (15:25)
[2018-10-02] MEDS ORDERED: Enoxaparin 30 MG/0.3 ML Syringe SUBCUT SCH (17:00)
[2018-10-02] MEDS: Lactated Ringers 1,000 ML IV SCH (20:19)
[2018-10-02] MEDS: cefTRIAXone 1 GM in Sodium Chloride 0.9% 50 ML IV SCH (20:23)
[2018-10-03] MEDS: Acetaminophen 325 MG Tab PO PRN (03:22)
[2018-10-03] MEDS: Pantoprazole 40 MG Vial IVPUSH SCH (03:23)
[2018-10-03] MEDS: Lactated Ringers 1,000 ML IV SCH (07:59)
[2018-10-03] MEDS ORDERED: Propofol 200 MG/20 ML SDV ONE (09:30)
[2018-10-03] MEDS ORDERED: fentaNYL 100 MCG/2 ML SDV ONE (09:30)
[2018-10-03] MEDS: Sucralfate 1 GM Tab PO SCH ×2 (09:58→11:23)
[2018-10-03] MEDS: Pantoprazole 40 MG Tab.CR PO SCH (09:58)
[2018-10-03] MEDS: Levothyroxine 88 MCG Tab PO SCH (09:58)
[2018-10-03] MEDS: Rosuvastatin 10 MG Tab PO SCH (09:59)
[2018-10-03] MEDS: Citalopram 10 MG Tab PO SCH (09:59)
[2018-10-03] MEDS: Hydrochlorothiazide 12.5 MG Cap PO SCH (11:22)
[2018-10-03] MEDS: Lisinopril 5 MG Tab PO SCH (11:22)
[2018-10-03] MEDS: Metoprolol Succinate 50 MG Tab.ER PO SCH (11:22)
--- NOTE | 2018-10-03 12:40 | PCM.PN ---
- General Info Date of Service: 10/03/18 Subjective Update: Ms. Larson is been stable since yesterday with no further evidence of active bleeding. She denies abdominal pain and is otherwise reports that she is feeling fairly well. EGD was performed this morning by Dr. Jacob and shows no obvious source of recent bleeding or blood loss. Functional Status: Reports: Tolerating Diet, Urinating - Review of Systems General: Reports: Weakness. Denies: Fever, Chills Pulmonary: Reports: No Symptoms Cardiovascular: Reports: No Symptoms Gastrointestinal: Reports: No Symptoms - Patient Data Vitals - Most Recent: Last Vital Signs Temp 98.0 F 10/03/18 11:19 Pulse 68 10/03/18 12:00 Resp 16 10/03/18 12:00 BP 165/59 H 10/03/18 12:37 Pulse Ox 93 L 10/03/18 12:00 Orthostatic Blood Pressure [ 74/46 Sitting] Orthostatic Blood Pressure [ 82/38 Supine] Weight - Most Recent: 143 lb I&O - Last 24 Hours: Intake & Output 10/02/18 10/03/18 10/03/18 22:59 06:59 14:59 Intake Total 1939 941 75 Output Total 225 350 Balance 1714 591 75 Lab Results Last 24 Hours: Laboratory Results - last 24 hr 10/02/18 10/02/18 10/03/18 Range/Units 17:00 23:00 05:00 WBC 6.6 (4.5-11.0) K/uL RBC 2.61 L (3.30-5.50) M/uL Hgb 8.9 L 8.3 L 8.3 L (12.0-15.0) g/dL Hct 26.6 L (36.0-48.0) % MCV 102 H (80-98) fL MCH 32 H (27-31) pg MCHC 31 L (32-36) % Plt Count 233 (150-400) K/uL Neut % (Auto) 70 H (36-66) % Lymph % (Auto) 20 L (24-44) % [place] % (Auto) 8 H (2-6) % Eos % (Auto) 2 (2-4) % Baso % (Auto) 0 (0-1) % Sodium (140-148) mmol/L Potassium (3.6-5.2) mmol/L Chloride (100-108) mmol/L Carbon Dioxide (21-32) mmol/L Anion Gap (5.0-14.0) mmol/L BUN (7-18) mg/dL Creatinine (0.6-1.0) mg/dL Est Cr Clr Drug Dosing mL/min Estimated GFR (MDRD) (>60) Glucose (74-106) mg/dL Calcium (8.5-10.1) mg/dL 10/03/18 Range/Units 05:00 WBC (4.5-11.0) K/uL RBC (3.30-5.50) M/uL Hgb (12.0-15.0) g/dL Hct (36.0-48.0) % MCV (80-98) fL MCH (27-31) pg MCHC (32-36) % Plt Count (150-400) K/uL Neut % (Auto) (36-66) % Lymph % (Auto) (24-44) % [place] % (Auto) (2-6) % Eos % (Auto) (2-4) % Baso % (Auto) (0-1) % Sodium 140 (140-148) mmol/L Potassium 3.7 (3.6-5.2) mmol/L Chloride 107 (100-108) mmol/L Carbon Dioxide 24 (21-32) mmol/L Anion Gap 8.8 (5.0-14.0) mmol/L BUN 29 H (7-18) mg/dL Creatinine 1.5 H (0.6-1.0) mg/dL Est Cr Clr Drug Dosing 21.84 mL/min Estimated GFR (MDRD) 33 L (>60) Glucose 98 (74-106) mg/dL Calcium 8.5 (8.5-10.1) mg/dL Tristan Results Last 24 Hours: Microbiology 10/01/18 19:03 Urine Culture - Preliminary Urine, Quick Cath (In-Out) NO GROWTH AFTER 1 DAY Med Orders - Current: Current Medications Acetaminophen (Tylenol) 650 mg PO Q4H PRN PRN Reason: Pain (Mild 1-3)/fever Last Admin: 10/03/18 03:22 Dose: 650 mg Albuterol (Proventil Neb Soln) 2.5 mg NEB Q4H PRN PRN Reason: Shortness Of Breath/wheezing Citalopram Hydrobromide (Celexa) 30 mg PO DAILY [facility] Last Admin: 10/03/18 09:59 Dose: Not Given Gabapentin (Neurontin) 100 mg PO ASDIRECTED PRN PRN Reason: Pain Hydrochlorothiazide (Hydrochlorothiazide) 12.5 mg PO DAILY [facility] Last Admin: 10/03/18 11:22 Dose: 12.5 mg Ceftriaxone Sodium 1 gm/ (Sodium Chloride) 50 mls @ 100 mls/hr IV Q24H [facility] Last Admin: 10/02/18 20:23 Dose: 100 mls/hr Levothyroxine Sodium (Synthroid) 88 mcg PO ACBREAKFAST [facility] Last Admin: 10/03/18 09:58 Dose: Not Given Lisinopril (Prinivil) 5 mg PO DAILY [facility] Last Admin: 10/03/18 11:22 Dose: 5 mg Metoprolol Succinate (Toprol Xl) 150 mg PO DAILY [facility] Last Admin: 10/03/18 11:22 Dose: 150 mg Ondansetron HCl (Zofran) 4 mg IV Q4H PRN PRN Reason: Nausea/Vomiting Pantoprazole Sodium (Protonix) 40 mg PO ACBREAKFAST [facility] Last Admin: 10/03/18 09:58 Dose: Not Given Pantoprazole Sodium (Protonix Iv) 40 mg IVPUSH Q12H [facility] Last Admin: 10/03/18 03:23 Dose: 40 mg Polyethylene Glycol (Miralax) 17 gm PO DAILY PRN PRN Reason: Constipation Rosuvastatin Calcium (Crestor) 10 mg PO DAILY [facility] Last Admin: 10/03/18 09:59 Dose: Not Given Sodium Chloride (Saline Flush) 10 ml FLUSH ASDIRECTED PRN PRN Reason: Keep Vein Open Sucralfate (Carafate) 1 gm PO QIDACANDBED [facility] Last Admin: 10/03/18 11:23 Dose: 1 gm Discontinued Medications Albuterol (Proventil Neb Soln) 2.5 mg INH Q6H PRN PRN Reason: Shortness of Breath Aspirin (Halfprin) 162 mg PO DAILY [facility] Last Admin: 10/02/18 13:57 Dose: 162 mg Diphtheria/Tetanus/Acell Pertussis (Adacel) 0.5 ml IM .ONCE ONE Stop: 10/02/18 14:31 Last Admin: 10/02/18 14:34 Dose: 0.5 ml Enoxaparin Sodium (Lovenox) 30 mg SUBCUT DAILY [facility] Last Admin: 10/01/18 19:50 Dose: 30 mg Enoxaparin Sodium (Lovenox) 30 mg SUBCUT QPM [facility] Fentanyl (Sublimaze) Confirm Administered Dose 100 mcg .ROUTE .STK-MED ONE Stop: 10/03/18 09:31 Lactated Ringer's (Ringers, Lactated) 1,000 mls @ 1,000 mls/hr IV BOLUS ONE Stop: 10/01/18 15:59 Last Admin: 10/01/18 15:25 Dose: 1,000 mls/hr Lactated Ringer's (Ringers, Lactated) 1,000 mls @ 150 mls/hr IV ASDIRECTED [facility] Last Admin: 10/01/18 16:43 Dose: 150 mls/hr Lactated Ringer's (Ringers, Lactated) 1,000 mls @ 125 mls/hr IV ASDIRECTED [facility] Last Admin: 10/02/18 01:25 Dose: 125 mls/hr Lactated Ringer's (Ringers, Lactated) 1,000 mls @ 75 mls/hr IV ASDIRECTED [facility] Last Admin: 10/03/18 07:59 Dose: 75 mls/hr Propofol (Diprivan 20 Ml) Confirm Administered Dose 200 mg .ROUTE .STK-MED ONE Stop: 10/03/18 09:31 - Exam Quality Assessment: Supplemental Oxygen, DVT Prophylaxis General: Alert, Oriented, Cooperative, No Acute Distress Lungs: Clear to Auscultation, Normal Respiratory Effort, Decreased Breath Sounds. No: Rales, Rhonchi, Wheezing Cardiovascular: Regular Rate, Regular Rhythm, No Murmurs GI/Abdominal Exam: Soft, Non-Tender, No Organomegaly, No Distention Extremities: Non-Tender, No Pedal Edema - Problem List Review Problem List Initiated/Reviewed/Updated: Yes - My Orders Last 24 Hours: My Active Orders 10/02/18 14:55 Consult to Physician [CONS] Routine 10/02/18 14:56 Notify Provider Consults [RC] ASDIRECTED 10/02/18 14:59 Patient Status [ADT] Routine 10/02/18 15:00 Pantoprazole [ProTONIX IV] 40 mg IVPUSH Q12H 10/02/18 15:06 Antiembolic Devices [RC] .Routine Sequential Compression Device [OM.PC] Routine 10/03/18 12:36 Verify Patient Consent Obtain [RC] ASDIRECTED Bisacodyl [Dulcolax] 10 mg PO ONETIME ONE Schedule Procedure [COMM] Routine 10/03/18 17:00 Polyethylene Glycol 3350 [MiraLAX] 238 gm PO ONETIME ONE 10/03/18 20:00 Bisacodyl [Dulcolax] 10 mg PO ONETIME ONE 10/04/18 00:01 Lactated Ringers [Ringers, Lactated] 1,000 ml IV ASDIRECTED 10/04/18 05:00 BASIC METABOLIC PANEL,BMP [CHEM] Timed CBC WITH AUTO DIFF [HEME] Timed 10/04/18 Breakfast NPO After Midnight [Nothing per Oral After Midnight Diet] [DIET] - Plan Plan:: ASSESSMENT AND PLAN PROGRESSIVE WEAKNESS AND DEHYDRATION-significantly improved from admission PROBABLE UPPER GI BLEED-just after admission had a dark maroon/melenic stool. Found to be heme positive, no evidence of bleeding since that time. EGD today showed no obvious source of recent bleeding -Clear liquid diet, nothing by mouth after midnight -Colonoscopy prep today -Surgical follow-up per Dr. Jacob, colonoscopy in a.m. URINARY TRACT INFECTION-urinalysis obtained after admission consistent with infection -Rocephin 1 g IV every 24 hours -Urine culture pending ACUTE ON CHRONIC KIDNEY INJURY-renal function improved and back to baseline following hydration -Closely monitor urine output -Reassess renal function in a.m. SEVERE OXYGEN-DEPENDENT COPD-no evidence of acute exacerbation or underlying respiratory tract infection -Supplemental oxygen as needed -Continue outpatient medications MAINTENANCE ISSUES -DVT prophylaxis; SCUDs, hold anticoagulation because of acute bleeding -GI prophylaxis; continue outpatient PPI therapy -Mcmullen catheter; not indicated -Nutrition; 2 g sodium diet -Nicotine dependence; not required CODE STATUS-FULL CODE ADMISSION STATUS-this patient will be admitted to observation status, expect no more than a one night hospital stay for evaluation and management of problems as outlined above. DISPOSITION-anticipate discharge to home after the hospital stay. PRIMARY CARE PROVIDER-Gabrielle Adams
[2018-10-03] MEDS ORDERED: Bisacodyl 5 MG Tab PO ONE ×2 (13:00→20:00)
--- NOTE | 2018-10-03 13:35 | OR ---
DATE OF PROCEDURE: 10/03/2018 PREOPERATIVE DIAGNOSIS: Gastrointestinal hemorrhage. POSTOPERATIVE DIAGNOSES: Gastrointestinal hemorrhage, etiology unknown, unremarkable esophagogastroduodenoscopy. PROCEDURE: Esophagogastroduodenoscopy. ANESTHESIA: IV anesthesia with monitored anesthesia care. INDICATION: This 78-year-old white female was in the hospital when she apparently had a maroon-colored stool. I counseled her for upper endoscopy with possible biopsy, including risks and alternatives, and she gave her informed consent to proceed. DESCRIPTION OF PROCEDURE: The patient was placed in the left lateral decubitus position. IV anesthesia was administered by the Anesthesia Service. Time-out was held. The flexible video Olympus upper endoscope was passed through her mouth, down her esophagus, and into her stomach. The scope was easily passed through the pylorus, into the duodenum, reaching its third portion. The scope was then slowly withdrawn, examining the mucosa throughout. Throughout the entire upper gastrointestinal tract, we saw no evidence of any old or new blood. The duodenal mucosa appeared unremarkable. The scope was brought up through the pylorus. The antrum appeared unremarkable. The scope was retroflexed. The proximal stomach appeared unremarkable. The scope was straightened and brought up to the GE junction. This appeared unremarkable. The scope was then brought up through the unremarkable-appearing esophagus and was removed. She tolerated the procedure well. Franco Jacob MD /[id number]
--- NOTE | 2018-10-03 15:35 | PCM.DCSUM1 ---
Discharge Summary - Hospital Course Brief History: Ms. Larson is a 78-year-old woman who was admitted through the emergency department with severe weakness secondary to dehydration and GI blood loss. - Discharge Data Discharge Date: 10/03/18 Discharge Disposition: Home, Self-Care 01 Condition: Fair - Discharge Diagnosis/Problem(s) (1) GI bleeding SNOMED Code(s): 84546019 ICD Code: K92.2 - GASTROINTESTINAL HEMORRHAGE, UNSPECIFIED Status: Acute Current Visit: Yes (2) Acute blood loss anemia SNOMED Code(s): 594914596 ICD Code: D62 - ACUTE POSTHEMORRHAGIC ANEMIA Status: Acute Current Visit : Yes (3) Weakness SNOMED Code(s): 52185760 ICD Code: R53.1 - WEAKNESS Status: Acute Current Visit: Yes (4) Dehydration SNOMED Code(s): 26947855 ICD Code: E86.0 - DEHYDRATION Status: Acute Current Visit: Yes (5) Chronic obstructive pulmonary disease SNOMED Code(s): 00116341 ICD Code: J44.9 - CHRONIC OBSTRUCTIVE PULMONARY DISEASE, UNSPECIFIED Status : Chronic Priority: Medium Current Visit: No Qualifiers: COPD type: unspecified COPD Qualified Code(s): J44.9 - Chronic obstructive pulmonary disease, unspecified - Patient Summary/Data Consults: Consultations 10/02/18 14:55 Consult to Physician [CONS] Routine Consulting Provider: Franco Jacob Call Completed to Consulting Physician: Yes Reason for Consult: Probable upper GI bleed, EGD in a.m. Hospital Course: Ms. Larson is a 78-year-old woman who was admitted to observation status through the emergency department for further management of weakness and underlying dehydration. She has a known history of severe oxygen-dependent COPD as well as chronic kidney disease stage IV. Over the last 2 weeks she has had difficulty with increased weakness and during that period of time has had 2 different falls. Associated with the falls have been pain in her right shoulder and anterior chest wall. CT scan and x-rays have been obtained showing no evidence of fracture. Over the past 2 weeks her oral intake is also been diminished especially worse over the past few days when she has not had much of anything in. This morning was found to be extremely weak to the point that she was unable to transfer or ambulate. Ambulance was called and she was found to be hypotensive. On evaluation in the emergency department she is noted to have an increase in her creatinine from baseline although relatively mild. Lactic acid level is mildly elevated likely secondary to dehydration. White blood cell count is normal and other than her renal function there are no significant electrolyte or metabolic abnormalities identified. Shortly after admission she had a large dark maroon/melenic-appearing stool that was found to be heme-positive. She was given IV fluids for hydration and serial hemoglobin levels were obtained. Urinalysis was obtained just prior to discharge from the emergency department and did come back appearing to be consistent with urinary tract infection. Urine culture was obtained and was showing no growth by the time of discharge so antibiotic therapy was discontinued. With hydration weakness and lightheadedness improved and her renal function returned to baseline. Hemoglobin did drop approximately 2 g with hydration and secondary to the bleeding. She had no further evidence of bleeding throughout her hospital stay and did not require transfusion during hospitalization. She was seen and evaluated by Dr. Jacob, EGD was performed on the day of discharge and showed no obvious source of recent bleeding. We discussed proceeding with colonoscopy the following day after colonoscopy prep and initially she was in favor of proceeding with this. Later in the afternoon on the day of discharge she decided not to proceed with colonoscopy and requested that she be discharged home. We did have a discussion concerning decision not to proceed with colonoscopy and I did explain to her that by not proceeding, there could be underlying undiagnosed issue causing the bleeding that may cause recurrent bleeding. She understands this but still requests that she be discharged home. She will return if symptoms recur or if she notes any further evidence of bleeding. Activity will be as tolerated and she will be on a soft low residue diet over the next 7 days. Follow-up appointment will be scheduled with her primary care provider within one week. Hemoglobin level should be obtained at the time of follow-up appointment. - Patient Instructions Diet: GI Soft/Low Residue/Low Fiber (For one week) Activity: As Tolerated Other/Special Instructions: Return to emergency department immediately if she notes any episodes of recurrent weakness or GI bleeding. Please schedule follow- up appointment with primary care provider within one week. Hemoglobin should be obtained at the time of follow-up appointment. - Discharge Plan *PRESCRIPTION DRUG MONITORING PROGRAM REVIEWED*: Not Applicable *COPY OF PRESCRIPTION DRUG MONITORING REPORT IN PATIENT EDILBERTO: Not Applicable Home Medications: Home Meds Aspirin [Ecotrin] 162 mg PO DAILY 08/15/14 [History] Cholecalciferol (Vitamin D3) [Vitamin D3] 2,000 unit PO DAILY 08/15/14 [History] Citalopram Hydrobromide [Celexa] 30 mg PO DAILY 08/15/14 [History] Levothyroxine [Synthroid] 88 mcg PO DAILY 08/15/14 [History] Metoprolol Succinate [Toprol Xl] 150 mg PO DAILY 08/15/14 [History] Omeprazole [Prilosec] 20 mg PO QAM 08/15/14 [History] hydroCHLOROthiazide [Hydrochlorothiazide] 12.5 mg PO DAILY 08/15/14 [History] Gabapentin [Neurontin] 100 mg PO ASDIRECTED PRN 07/11/17 [History] Multivitamin with Minerals [Multiple Vitamin] 1 tab PO DAILY 07/11/17 [History] Nystatin 100,000 unit TOP BID 07/11/17 [History] Triamcinolone Acetonide [Kenalog 0.1% Crm] 0.1 percent TOP BID 07/11/17 [History ] Albuterol [Proventil Neb Soln] 3 ml INH Q6H PRN 04/22/18 [History] Cyanocobalamin/FA/Pyridoxine [Virt-Liset Forte Tablet] 1 each PO DAILY 04/29/18 [ History] Lisinopril 5 mg PO DAILY 04/29/18 [History] Ondansetron HCl [Zofran] 4 mg PO Q8H PRN 04/29/18 [History] Rosuvastatin [Crestor] 10 mg PO DAILY 04/29/18 [History] Sucralfate [Carafate] 1 gm PO QIDACANDBED 04/29/18 [History] Referrals: Nathaly Adams PA-C [Primary Care Provider] - - Discharge Summary/Plan Comment DC Time >30 min.: No - Patient Data Vitals - Most Recent: Last Vital Signs Temp 98.3 F 10/03/18 14:31 Pulse 58 L 10/03/18 14:31 Resp 18 10/03/18 14:31 BP 157/81 H 10/03/18 14:31 Pulse Ox 94 L 10/03/18 14:31 Orthostatic Blood Pressure [ 74/46 Sitting] Orthostatic Blood Pressure [ 82/38 Supine] Weight - Most Recent: 143 lb I&O - Last 24 hours: Intake & Output 10/03/18 10/03/18 10/03/18 06:59 14:59 22:59 Intake Total 941 413 Output Total 350 Balance 591 413 Lab Results - Last 24 hrs: Laboratory Results - last 24 hr 10/02/18 10/02/18 10/03/18 Range/Units 17:00 23:00 05:00 WBC 6.6 (4.5-11.0) K/uL RBC 2.61 L (3.30-5.50) M/uL Hgb 8.9 L 8.3 L 8.3 L (12.0-15.0) g/dL Hct 26.6 L (36.0-48.0) % MCV 102 H (80-98) fL MCH 32 H (27-31) pg MCHC 31 L (32-36) % Plt Count 233 (150-400) K/uL Neut % (Auto) 70 H (36-66) % Lymph % (Auto) 20 L (24-44) % [place] % (Auto) 8 H (2-6) % Eos % (Auto) 2 (2-4) % Baso % (Auto) 0 (0-1) % Sodium (140-148) mmol/L Potassium (3.6-5.2) mmol/L Chloride (100-108) mmol/L Carbon Dioxide (21-32) mmol/L Anion Gap (5.0-14.0) mmol/L BUN (7-18) mg/dL Creatinine (0.6-1.0) mg/dL Est Cr Clr Drug Dosing mL/min Estimated GFR (MDRD) (>60) Glucose (74-106) mg/dL Calcium (8.5-10.1) mg/dL 10/03/18 Range/Units 05:00 WBC (4.5-11.0) K/uL RBC (3.30-5.50) M/uL Hgb (12.0-15.0) g/dL Hct (36.0-48.0) % MCV (80-98) fL MCH (27-31) pg MCHC (32-36) % Plt Count (150-400) K/uL Neut % (Auto) (36-66) % Lymph % (Auto) (24-44) % [place] % (Auto) (2-6) % Eos % (Auto) (2-4) % Baso % (Auto) (0-1) % Sodium 140 (140-148) mmol/L Potassium 3.7 (3.6-5.2) mmol/L Chloride 107 (100-108) mmol/L Carbon Dioxide 24 (21-32) mmol/L Anion Gap 8.8 (5.0-14.0) mmol/L BUN 29 H (7-18) mg/dL Creatinine 1.5 H (0.6-1.0) mg/dL Est Cr Clr Drug Dosing 21.84 mL/min Estimated GFR (MDRD) 33 L (>60) Glucose 98 (74-106) mg/dL Calcium 8.5 (8.5-10.1) mg/dL TABATHA Results - Last 24 hrs: Microbiology 10/01/18 19:03 Urine Culture - Preliminary Urine, Quick Cath (In-Out) NO GROWTH AFTER 1 DAY Med Orders - Current: Current Medications Acetaminophen (Tylenol) 650 mg PO Q4H PRN PRN Reason: Pain (Mild 1-3)/fever Last Admin: 10/03/18 03:22 Dose: 650 mg Albuterol (Proventil Neb Soln) 2.5 mg NEB Q4H PRN PRN Reason: Shortness Of Breath/wheezing Bisacodyl (Dulcolax) 10 mg PO ONETIME ONE Stop: 10/03/18 20:01 Citalopram Hydrobromide (Celexa) 30 mg PO DAILY PENDING SALE TO [facility] Last Admin: 10/03/18 09:59 Dose: Not Given Gabapentin (Neurontin) 100 mg PO ASDIRECTED PRN PRN Reason: Pain Hydrochlorothiazide (Hydrochlorothiazide) 12.5 mg PO DAILY PENDING SALE TO [facility] Last Admin: 10/03/18 11:22 Dose: 12.5 mg Ceftriaxone Sodium 1 gm/ (Sodium Chloride) 50 mls @ 100 mls/hr IV Q24H PENDING SALE TO [facility] Last Admin: 10/02/18 20:23 Dose: 100 mls/hr Lactated Ringer's (Ringers, Lactated) 1,000 mls @ 75 mls/hr IV ASDIRECTED PENDING SALE TO [facility] Levothyroxine Sodium (Synthroid) 88 mcg PO ACBREAKFAST PENDING SALE TO [facility] Last Admin: 10/03/18 09:58 Dose: Not Given Lisinopril (Prinivil) 5 mg PO DAILY PENDING SALE TO [facility] Last Admin: 10/03/18 11:22 Dose: 5 mg Metoprolol Succinate (Toprol Xl) 150 mg PO DAILY PENDING SALE TO [facility] Last Admin: 10/03/18 11:22 Dose: 150 mg Ondansetron HCl (Zofran) 4 mg IV Q4H PRN PRN Reason: Nausea/Vomiting Pantoprazole Sodium (Protonix) 40 mg PO ACBREAKFAST PENDING SALE TO [facility] Last Admin: 10/03/18 09:58 Dose: Not Given Pantoprazole Sodium (Protonix Iv) 40 mg IVPUSH Q12H PENDING SALE TO [facility] Last Admin: 10/03/18 03:23 Dose: 40 mg Polyethylene Glycol (Miralax) 17 gm PO DAILY PRN PRN Reason: Constipation Polyethylene Glycol (Miralax) 238 gm PO ONETIME ONE Stop: 10/03/18 17:01 Rosuvastatin Calcium (Crestor) 10 mg PO DAILY PENDING SALE TO [facility] Last Admin: 10/03/18 09:59 Dose: Not Given Sodium Chloride (Saline Flush) 10 ml FLUSH ASDIRECTED PRN PRN Reason: Keep Vein Open Sucralfate (Carafate) 1 gm PO QIDACANDBED PENDING SALE TO [facility] Last Admin: 10/03/18 11:23 Dose: 1 gm Discontinued Medications Albuterol (Proventil Neb Soln) 2.5 mg INH Q6H PRN PRN Reason: Shortness of Breath Aspirin (Halfprin) 162 mg PO DAILY PENDING SALE TO [facility] Last Admin: 10/02/18 13:57 Dose: 162 mg Bisacodyl (Dulcolax) 10 mg PO ONETIME ONE Stop: 10/03/18 13:01 Last Admin: 10/03/18 13:11 Dose: 10 mg Diphtheria/Tetanus/Acell Pertussis (Adacel) 0.5 ml IM .ONCE ONE Stop: 10/02/18 14:31 Last Admin: 10/02/18 14:34 Dose: 0.5 ml Enoxaparin Sodium (Lovenox) 30 mg SUBCUT DAILY PENDING SALE TO [facility] Last Admin: 10/01/18 19:50 Dose: 30 mg Enoxaparin Sodium (Lovenox) 30 mg SUBCUT QPM PENDING SALE TO [facility] Fentanyl (Sublimaze) Confirm Administered Dose 100 mcg .ROUTE .STK-MED ONE Stop: 10/03/18 09:31 Lactated Ringer's (Ringers, Lactated) 1,000 mls @ 1,000 mls/hr IV BOLUS ONE Stop: 10/01/18 15:59 Last Admin: 10/01/18 15:25 Dose: 1,000 mls/hr Lactated Ringer's (Ringers, Lactated) 1,000 mls @ 150 mls/hr IV ASDIRECTED AZIZA Last Admin: 10/01/18 16:43 Dose: 150 mls/hr Lactated Ringer's (Ringers, Lactated) 1,000 mls @ 125 mls/hr IV ASDIRECTED AZIZA Last Admin: 10/02/18 01:25 Dose: 125 mls/hr Lactated Ringer's (Ringers, Lactated) 1,000 mls @ 75 mls/hr IV ASDIRECTED AZIZA Last Admin: 10/03/18 07:59 Dose: 75 mls/hr Propofol (Diprivan 20 Ml) Confirm Administered Dose 200 mg .ROUTE .STK-MED ONE Stop: 10/03/18 09:31 - Exam Quality Assessment: Reports: Supplemental Oxygen General: Reports: Alert, Cooperative, No Acute Distress Lungs: Reports: Clear to Auscultation, Normal Respiratory Effort Cardiovascular: Reports: Regular Rate, Regular Rhythm, No Murmurs GI/Abdominal Exam: Soft, Non-Tender, No Organomegaly, No Distention
[2018-10-03] MEDS ORDERED: Polyethylene Glycol 3350 Powder 238 GM Bot PO ONE (17:00)
[2018-10-04] MEDS ORDERED: Lactated Ringers 1,000 ML IV SCH (00:01)
[2018-10-04 13:14] VITALS: BP 157/81
== END 2018-10-03 17:12 | disposition home or self-care (01) | DRG 378 ==
LOC: JP.ED 14:41 → JP.MS 17:46 → OBSVTOIN 10-02 14:59
PROVIDERS: ADMIT Hospitalist; ATTEND Hospitalist
PROC: 3E0234Z Introduction of Serum, Toxoid and Vaccine into Muscle, Percutaneous Approach (ICD-10-PCS; principal; 2018-10-02)
PROC: 0DJ08ZZ Inspection of Upper Intestinal Tract, Via Natural or Artificial Opening Endoscopic (ICD-10-PCS; 2018-10-02)
DX: R53.1 Weakness (principal); K92.2 Gastrointestinal hemorrhage, unspecified; D62 Acute posthemorrhagic anemia; N17.9 Acute kidney failure, unspecified; N18.4 Chronic kidney disease, stage 4 (severe); N39.0 Urinary tract infection, site not specified; E86.0 Dehydration; I95.89 Other hypotension; R63.0 Anorexia; R55 Syncope and collapse; I12.9 Hypertensive chronic kidney disease with stage 1 through stage 4 chronic kidney disease, or unspecified chronic kidney disease; I25.10 Atherosclerotic heart disease of native coronary artery without angina pectoris; J44.9 Chronic obstructive pulmonary disease, unspecified; Z99.81 Dependence on supplemental oxygen; Z23 Encounter for immunization; R19.5 Other fecal abnormalities; M35.3 Polymyalgia rheumatica; Z91.81 History of falling; Z53.29 Procedure and treatment not carried out because of patient's decision for other reasons; M19.90 Unspecified osteoarthritis, unspecified site; F32.9 Major depressive disorder, single episode, unspecified; Z87.440 Personal history of urinary (tract) infections; K21.9 Gastro-esophageal reflux disease without esophagitis; H54.7 Unspecified visual loss; Z91.5 Personal history of self-harm; Z79.82 Long term (current) use of aspirin; Z79.52 Long term (current) use of systemic steroids; Z88.2 Allergy status to sulfonamides; Z88.8 Allergy status to other drugs, medicaments and biological substances
CPT/HCPCS: 36415 ×2; 80048 ×2; 81001; 82272; 83605 ×2; 84443; 84484 ×3; 85018 ×2; 85025; 85027; 86140; 86850; 86900; 86901; 86920; 86922; 87086; 90715; 93005; 96361; 96365; 96372; 99284; 99285; A9270 ×9; G0378 ×2; J0696; J1650; J7050; J7120 ×3; 96360; C9113; J2704; J3010

== ENCOUNTER 2019-02-08 12:53 | Inpatient (IN) | payer MEDICARE, OTHER ==
--- NOTE | 2019-02-08 13:29 | EDM.PDOC ---
ED HPI GENERAL MEDICAL PROBLEM - General Chief Complaint: General Stated Complaint: SICK/ NOT FEELING WELL Time Seen by Provider: 02/08/19 13:26 Source of Information: Reports: Patient History Limitations: Reports: No Limitations - History of Present Illness INITIAL COMMENTS - FREE TEXT/NARRATIVE: pt arrived after she was feeling ill yesterday and she had diarrhea and did some vomiting. She didn,t eat anything last nite she got up this am and was very weak and did not feel that she could eat anything. Onset: Other ( started yesterday. ) Duration: Hour(s): Location: Reports: Abdomen, Generalized Associated Symptoms: Reports: Loss of Appetite, Malaise, Nausea/Vomiting - Related Data Allergies Allergy/AdvReac Type Severity Reaction Status Date / Time Sulfa (Sulfonamide Allergy Cannot Verified 02/08/19 13:18 Antibiotics) Remember atorvastatin AdvReac Abdominal Verified 02/08/19 13:18 Pain ibuprofen [From Motrin] AdvReac Stomach Verified 02/08/19 13:18 Upset Home Meds: Home Meds Aspirin [Ecotrin] 162 mg PO DAILY 08/15/14 [History] Cholecalciferol (Vitamin D3) [Vitamin D3] 2,000 unit PO DAILY 08/15/14 [History] Citalopram Hydrobromide [Celexa] 30 mg PO DAILY 08/15/14 [History] Levothyroxine [Synthroid] 88 mcg PO DAILY 08/15/14 [History] Metoprolol Succinate [Toprol Xl] 150 mg PO DAILY 08/15/14 [History] Omeprazole [Prilosec] 20 mg PO QAM 08/15/14 [History] hydroCHLOROthiazide [Hydrochlorothiazide] 12.5 mg PO DAILY 08/15/14 [History] Gabapentin [Neurontin] 100 mg PO ASDIRECTED PRN 07/11/17 [History] Multivitamin with Minerals [Multiple Vitamin] 1 tab PO DAILY 07/11/17 [History] Nystatin 100,000 unit TOP BID 07/11/17 [History] Triamcinolone Acetonide [Kenalog 0.1% Crm] 0.1 percent TOP BID 07/11/17 [History ] Albuterol [Proventil Neb Soln] 3 ml INH Q6H PRN 04/22/18 [History] Cyanocobalamin/FA/Pyridoxine [Virt-Liset Forte Tablet] 1 each PO DAILY 04/29/18 [ History] Lisinopril 5 mg PO DAILY 04/29/18 [History] Ondansetron HCl [Zofran] 4 mg PO Q8H PRN 04/29/18 [History] Rosuvastatin [Crestor] 10 mg PO DAILY 04/29/18 [History] Sucralfate [Carafate] 1 gm PO QIDACANDBED 04/29/18 [History] Past Medical History HEENT History: Reports: Impaired Vision Other HEENT History: wears glasses Cardiovascular History: Reports: CAD, High Cholesterol, Hypertension, SOB on Exertion, Other (See Below) Other Cardiovascular History: carotid artery disease-peripheral artery disease- abdom. aortic aneurysm repair Respiratory History: Reports: COPD, SOB Gastrointestinal History: Reports: Chronic Diarrhea, Colon Polyp, GERD Genitourinary History: Reports: UTI, Recurrent, Other (See Below) Other Genitourinary History: chronic kidney disease stage 3 [employer] History: Reports: Dysfunctional Uterine Bleeding Musculoskeletal History: Reports: Back Pain, Chronic, Fracture, Osteoarthritis Other Musculoskeletal History: chronic degenerative back disease Psychiatric History: Reports: Depression, Psych Hospitalization(s), Suicide Attempt, Suicidal Ideation Endocrine/Metabolic History: Reports: Hypothyroidism Hematologic History: Reports: Anemia Dermatologic History: Reports: Other (See Below) Other Dermatologic History: "picks at skin" - Infectious Disease History Infectious Disease History: Reports: Chicken Pox - Past Surgical History Head Surgeries/Procedures: Reports: None HEENT Surgical History: Reports: Adenoidectomy, Cataract Surgery, Tonsillectomy Cardiovascular Surgical History: Reports: AAA Repair Respiratory Surgical History: Reports: None GI Surgical History: Reports: Appendectomy, Cholecystectomy, Colonoscopy, Polypectomy Female Surgical History: Reports: Hysterectomy, Salpingo-Oophorectomy Endocrine Surgical History: Reports: None Musculoskeletal Surgical History: Reports: Carpal Tunnel Dermatological Surgical History: Reports: None Social & Family History - Family History Family Medical History: Noncontributory - Caffeine Use Caffeine Use: Reports: None - Living Situation & Occupation Living situation: Reports: , with Spouse Occupation: Disabled ED ROS GENERAL - Review of Systems Review Of Systems: See Below Constitutional: Reports: Weakness, Other (pt has very shakey hands and was having trouble grasping things. ) HEENT: Reports: No Symptoms Respiratory: Reports: No Symptoms Cardiovascular: Reports: No Symptoms Endocrine: Reports: No Symptoms GI/Abdominal: Reports: No Symptoms, Other (pt is having slight pain over the left hip ) : Reports: No Symptoms Musculoskeletal: Reports: Other ( weakness in her upper extremities. ) Skin: Reports: No Symptoms Neurological: Reports: Other ( history of alot of tremor. She is weak and having difficulty coordinating her hand ) Psychiatric: Reports: No Symptoms ED EXAM, GENERAL - Physical Exam Exam: See Below Free Text/Narrative:: Pt arrived with a history of vomiting and diarrhea which hit her all of a sudden. She has not drank or eaten anything since that time. She did not have severe abdomanal pain with this. She was at a constitution party where there was a bunch of young children and thinks she might have gotten the flu/ Exam Limited By: No Limitations General Appearance: Alert, Anxious, Mild Distress, Other (Pt is very weak and shakey in her upper extremities. ) Ears: Normal TMs Nose: Normal Inspection Throat/Mouth: Normal Inspection Head: Atraumatic Neck: Normal Inspection Respiratory/Chest: No Respiratory Distress Cardiovascular: Regular Rate, Rhythm GI/Abdominal: Soft, Non-Tender, Other ( she does have mild tenderness over her left hip area. ) (Female) Exam: Deferred Rectal (Female) Exam: Deferred Back Exam: Normal Inspection Extremities: Normal Inspection Neurological: Alert, Oriented, Normal Cognition Course - Vital Signs Last Recorded V/S: Last Vital Signs Temp 37.5 C 02/08/19 13:22 Pulse 68 02/08/19 13:22 Resp 16 02/08/19 13:22 BP 111/53 L 02/08/19 13:22 Pulse Ox 98 02/08/19 13:22 - Orders/Labs/Meds Orders: Active Orders 24 hr Category Date Time Status UA W/MICROSCOPIC [URIN] Urgent Lab 02/08/19 13:20 Ordered Sodium Chloride 0.9% [Normal Saline] 1,000 ml Med 02/08/19 13:45 Active IV ASDIRECTED Medication Orders Sodium Chloride (Normal Saline) 1,000 mls @ 999 mls/hr IV ASDIRECTED AZIZA Last Admin: 02/08/19 14:06 Dose: 999 mls/hr Labs: Laboratory Tests 02/08/19 02/08/19 02/08/19 Range/Units 13:25 13:25 13:25 WBC 12.9 H (4.5-11.0) K/uL RBC 3.35 (3.30-5.50) M/uL Hgb 10.7 L D (12.0-15.0) g/dL Hct 35.5 L (36.0-48.0) % MCV 106 H (80-98) fL MCH 32 H (27-31) pg MCHC 30 L (32-36) % Plt Count 216 (150-400) K/uL Neut % (Auto) 84 H (36-66) % Lymph % (Auto) 7 L (24-44) % [place] % (Auto) 9 H (2-6) % Eos % (Auto) 1 L (2-4) % Baso % (Auto) 0 (0-1) % ESR 23 (0-25) mm/hr Sodium 137 L (140-148) mmol/L Potassium 5.5 H (3.6-5.2) mmol/L Chloride 106 (100-108) mmol/L Carbon Dioxide 19 L (21-32) mmol/L Anion Gap 17.5 H (5.0-14.0) mmol/L BUN 45 H D (7-18) mg/dL Creatinine 2.5 H D (0.6-1.0) mg/dL Est Cr Clr Drug Dosing 13.11 mL/min Estimated GFR (MDRD) 19 L (>60) Glucose 135 H (74-106) mg/dL Calcium 9.2 (8.5-10.1) mg/dL Total Bilirubin 0.5 D (0.2-1.0) mg/dL AST 25 (15-37) U/L ALT 19 (12-78) U/L Alkaline Phosphatase 54 (46-116) U/L C-Reactive Protein (0.0-0.3) mg/dL Total Protein 7.2 (6.4-8.2) g/dL Albumin 3.3 L (3.4-5.0) g/dL Globulin 3.9 H (2.3-3.5) g/dL Albumin/Globulin Ratio 0.9 L (1.2-2.2) 02/08/19 Range/Units 13:25 WBC (4.5-11.0) K/uL RBC (3.30-5.50) M/uL Hgb (12.0-15.0) g/dL Hct (36.0-48.0) % MCV (80-98) fL MCH (27-31) pg MCHC (32-36) % Plt Count (150-400) K/uL Neut % (Auto) (36-66) % Lymph % (Auto) (24-44) % [place] % (Auto) (2-6) % Eos % (Auto) (2-4) % Baso % (Auto) (0-1) % ESR (0-25) mm/hr Sodium (140-148) mmol/L Potassium (3.6-5.2) mmol/L Chloride (100-108) mmol/L Carbon Dioxide (21-32) mmol/L Anion Gap (5.0-14.0) mmol/L BUN (7-18) mg/dL Creatinine (0.6-1.0) mg/dL Est Cr Clr Drug Dosing mL/min Estimated GFR (MDRD) (>60) Glucose (74-106) mg/dL Calcium (8.5-10.1) mg/dL Total Bilirubin (0.2-1.0) mg/dL AST (15-37) U/L ALT (12-78) U/L Alkaline Phosphatase (46-116) U/L C-Reactive Protein 2.51 H (0.0-0.3) mg/dL Total Protein (6.4-8.2) g/dL Albumin (3.4-5.0) g/dL Globulin (2.3-3.5) g/dL Albumin/Globulin Ratio (1.2-2.2) Meds: Medications Generic Name Dose Route Start Last Admin Trade Name Freq PRN Reason Stop Dose Admin Sodium Chloride 1,000 mls @ 999 mls/hr 02/08/19 13:45 02/08/19 14:06 Normal Saline IV 999 mls/hr ASDIRECTED AZIZA Administration Discontinued Medications Generic Name Dose Route Start Last Admin Trade Name Freq PRN Reason Stop Dose Admin Ondansetron HCl 4 mg 02/08/19 13:49 02/08/19 14:06 Zofran IVPUSH 02/08/19 13:50 4 mg ONETIME ONE Administration - Re-Assessments/Exams Free Text/Narrative Re-Assessment/Exam: 02/08/19 14:53 pt has a elevated creatnine. She appears to be quite dry. She has a low grade temp and this is most likely a gastroenteritis. Departure - Departure Time of Disposition: 14:55 Disposition: Admitted As Inpatient 65 Condition: Fair Clinical Impression: Dehydration, Renal insufficiency, Gastroenteritis - Discharge Information Referrals: Nathaly Adams PA-C [Primary Care Provider] - Forms: ED Department Discharge Care Plan Goals: admit to Dr Rivero. - My Orders Last 24 Hours: My Active Orders 02/08/19 13:20 UA W/MICROSCOPIC [URIN] Urgent 02/08/19 13:45 Sodium Chloride 0.9% [Normal Saline] 1,000 ml IV ASDIRECTED - Assessment/Plan Last 24 Hours: My Active Orders 02/08/19 13:20 UA W/MICROSCOPIC [URIN] Urgent 02/08/19 13:45 Sodium Chloride 0.9% [Normal Saline] 1,000 ml IV ASDIRECTED
[2019-02-08] MEDS ORDERED: Sodium Chloride 0.9% 1,000 ML IV SCH (13:45)
[2019-02-08] MEDS ORDERED: Ondansetron 4 MG/2 ML SDV IVPUSH ONE (13:49)
[2019-02-08] MEDS ORDERED: Acetaminophen 325 MG Tab PO ONE (14:58)
--- NOTE | 2019-02-08 15:06 | PCM.HP ---
H&P History of Present Illness - General Date of Service: 02/08/19 Admit Problem/Dx: Admission Diagnosis/Problem Admission Diagnosis/Problem Gastroenteritis Source of Information: Patient, Family, Old Records, Provider, RN Notes Reviewed History Limitations: Reports: No Limitations - History of Present Illness Initial Comments - Free Text/Narative: Ms. Larson is a 78-year-old woman who was admitted through the emergency department with weakness, dehydration, and acute on chronic kidney injury, contrary to gastroenteritis with nausea, vomiting, and diarrhea. She was feeling well until last night when she noted abrupt onset of profuse recurrent watery diarrhea and then developed nausea with vomiting. This has left her very weak to the point where she is unable to ambulate or transfer. At baseline she does have oxygen dependent COPD but denies increase in dyspnea or any symptoms of cough with sputum production. Evaluation in the emergency department oxygen saturation has been stable. White blood cell count is modestly elevated and her creatinine is elevated from baseline with modest elevation in potassium level. - Related Data Allergies/Adverse Reactions: Allergies Allergy/AdvReac Type Severity Reaction Status Date / Time Sulfa (Sulfonamide Allergy Cannot Verified 02/08/19 13:18 Antibiotics) Remember atorvastatin AdvReac Abdominal Verified 02/08/19 13:18 Pain ibuprofen [From Motrin] AdvReac Stomach Verified 02/08/19 13:18 Upset Home Medications: Home Meds Aspirin [Ecotrin] 162 mg PO DAILY 08/15/14 [History] Cholecalciferol (Vitamin D3) [Vitamin D3] 2,000 unit PO DAILY 08/15/14 [History] Citalopram Hydrobromide [Celexa] 30 mg PO DAILY 08/15/14 [History] Levothyroxine [Synthroid] 88 mcg PO DAILY 08/15/14 [History] Metoprolol Succinate [Toprol Xl] 150 mg PO DAILY 08/15/14 [History] Omeprazole [Prilosec] 20 mg PO QAM 08/15/14 [History] hydroCHLOROthiazide [Hydrochlorothiazide] 12.5 mg PO DAILY 08/15/14 [History] Gabapentin [Neurontin] 100 mg PO ASDIRECTED PRN 07/11/17 [History] Multivitamin with Minerals [Multiple Vitamin] 1 tab PO DAILY 07/11/17 [History] Nystatin 100,000 unit TOP BID 10/19/17 [History] Triamcinolone Acetonide [Kenalog 0.1% Crm] 0.1 percent TOP BID 07/11/17 [History ] Albuterol [Proventil Neb Soln] 3 ml INH Q6H PRN 04/22/18 [History] Cyanocobalamin/FA/Pyridoxine [Virt-Liset Forte Tablet] 1 each PO DAILY 04/29/18 [ History] Lisinopril 5 mg PO DAILY 04/29/18 [History] Ondansetron HCl [Zofran] 4 mg PO Q8H PRN 04/29/18 [History] Rosuvastatin [Crestor] 10 mg PO DAILY 04/29/18 [History] Sucralfate [Carafate] 1 gm PO QIDACANDBED 04/29/18 [History] Past Medical History HEENT History: Reports: Impaired Vision Other HEENT History: wears glasses Cardiovascular History: Reports: CAD, High Cholesterol, Hypertension, SOB on Exertion, Other (See Below) Other Cardiovascular History: carotid artery disease-peripheral artery disease- abdom. 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: Reports: Dysfunctional Uterine Bleeding Musculoskeletal History: Reports: Back Pain, Chronic, Fracture, Osteoarthritis Other Musculoskeletal History: chronic degenerative back disease Psychiatric History: Reports: Depression, Psych Hospitalization(s), Suicide Attempt, Suicidal Ideation Endocrine/Metabolic History: Reports: Hypothyroidism Hematologic History: Reports: Anemia Dermatologic History: Reports: Other (See Below) Other Dermatologic History: "picks at skin" - Infectious Disease History Infectious Disease History: Reports: Chicken Pox - Past Surgical History Head Surgeries/Procedures: Reports: None HEENT Surgical History: Reports: Adenoidectomy, Cataract Surgery, Tonsillectomy Cardiovascular Surgical History: Reports: AAA Repair Respiratory Surgical History: Reports: None GI Surgical History: Reports: Appendectomy, Cholecystectomy, Colonoscopy, Polypectomy Female Surgical History: Reports: Hysterectomy, Salpingo-Oophorectomy Endocrine Surgical History: Reports: None Musculoskeletal Surgical History: Reports: Carpal Tunnel Dermatological Surgical History: Reports: None Social & Family History - Family History Family Medical History: Noncontributory - Tobacco Use Smoking Status *Q: Former Smoker Used Tobacco, but Quit: Yes Month/Year Tobacco Last Used: 2004 - Caffeine Use Caffeine Use: Reports: None - Recreational Drug Use Recreational Drug Use: No - Living Situation & Occupation Living situation: Reports: , with Spouse Occupation: Disabled H&P Review of Systems - Review of Systems: Review Of Systems: See Below General: Reports: Chills, Weakness, Decreased Appetite. Denies: Fever HEENT: Reports: No Symptoms Pulmonary: Reports: No Symptoms Cardiovascular: Reports: No Symptoms Gastrointestinal: Reports: Abdominal Pain, Diarrhea, Decreased Appetite, Nausea , Vomiting. Denies: Black Stool, Bloody Stool, Constipation, Difficulty Swallowing, Distension Genitourinary: Reports: No Symptoms Musculoskeletal: Reports: No Symptoms Skin: Reports: No Symptoms Psychiatric: Reports: No Symptoms Neurological: Reports: No Symptoms Hematologic/Lymphatic: Reports: No Symptoms Immunologic: Reports: No Symptoms Exam - Exam Exam: See Below - Vital Signs Vital Signs: Last Vital Signs Temp 99.5 F 02/08/19 13:22 Pulse 68 02/08/19 13:22 Resp 16 02/08/19 13:22 BP 111/53 L 02/08/19 13:22 Pulse Ox 98 02/08/19 13:22 Weight: 317 lb 7.45 oz - Exam Quality Assessment: Supplemental Oxygen, DVT Prophylaxis General: Alert, Oriented, Cooperative, Mild Distress HEENT: Conjunctiva Clear, Hearing Intact, Normal Nasal Septum, Posterior Pharynx Clear, Pupils Equal. No: Mucosa Moist & [place] Neck: Supple, Trachea Midline, +2 Carotid Pulse wo Bruit Lungs: Normal Respiratory Effort, Decreased Breath Sounds. No: Rales, Rhonchi, Wheezing Cardiovascular: Regular Rate, Regular Rhythm, Normal S1, Normal S2. No: Systolic Murmur, Diastolic Murmur GI/Abdominal Exam: Soft, Non-Tender, No Organomegaly, No Distention Back Exam: Normal Inspection, Full Range of Motion Extremities: Non-Tender, No Pedal Edema Skin: Warm, Dry Neurological: Cranial Nerves Intact, Strength Equal Bilateral, Normal Speech, Normal Tone, Sensation Intact. No: Focal Deficit Neuro Extensive - Mental Status: Alert, Oriented x3, Normal Mood/Affect, Memory Loss-Remote Events, Memory Loss-Recent Events - Patient Data Lab Results Last 24 hrs: Laboratory Results - last 24 hr 02/08/19 02/08/19 02/08/19 Range/Units 13:25 13:25 13:25 WBC 12.9 H (4.5-11.0) K/uL RBC 3.35 (3.30-5.50) M/uL Hgb 10.7 L D (12.0-15.0) g/dL Hct 35.5 L (36.0-48.0) % MCV 106 H (80-98) fL MCH 32 H (27-31) pg MCHC 30 L (32-36) % Plt Count 216 (150-400) K/uL Neut % (Auto) 84 H (36-66) % Lymph % (Auto) 7 L (24-44) % [place] % (Auto) 9 H (2-6) % Eos % (Auto) 1 L (2-4) % Baso % (Auto) 0 (0-1) % ESR 23 (0-25) mm/hr Sodium 137 L (140-148) mmol/L Potassium 5.5 H (3.6-5.2) mmol/L Chloride 106 (100-108) mmol/L Carbon Dioxide 19 L (21-32) mmol/L Anion Gap 17.5 H (5.0-14.0) mmol/L BUN 45 H D (7-18) mg/dL Creatinine 2.5 H D (0.6-1.0) mg/dL Est Cr Clr Drug Dosing 13.11 mL/min Estimated GFR (MDRD) 19 L (>60) Glucose 135 H (74-106) mg/dL Calcium 9.2 (8.5-10.1) mg/dL Total Bilirubin 0.5 D (0.2-1.0) mg/dL AST 25 (15-37) U/L ALT 19 (12-78) U/L Alkaline Phosphatase 54 (46-116) U/L C-Reactive Protein (0.0-0.3) mg/dL Total Protein 7.2 (6.4-8.2) g/dL Albumin 3.3 L (3.4-5.0) g/dL Globulin 3.9 H (2.3-3.5) g/dL Albumin/Globulin Ratio 0.9 L (1.2-2.2) 02/08/19 Range/Units 13:25 WBC (4.5-11.0) K/uL RBC (3.30-5.50) M/uL Hgb (12.0-15.0) g/dL Hct (36.0-48.0) % MCV (80-98) fL MCH (27-31) pg MCHC (32-36) % Plt Count (150-400) K/uL Neut % (Auto) (36-66) % Lymph % (Auto) (24-44) % [place] % (Auto) (2-6) % Eos % (Auto) (2-4) % Baso % (Auto) (0-1) % ESR (0-25) mm/hr Sodium (140-148) mmol/L Potassium (3.6-5.2) mmol/L Chloride (100-108) mmol/L Carbon Dioxide (21-32) mmol/L Anion Gap (5.0-14.0) mmol/L BUN (7-18) mg/dL Creatinine (0.6-1.0) mg/dL Est Cr Clr Drug Dosing mL/min Estimated GFR (MDRD) (>60) Glucose (74-106) mg/dL Calcium (8.5-10.1) mg/dL Total Bilirubin (0.2-1.0) mg/dL AST (15-37) U/L ALT (12-78) U/L Alkaline Phosphatase (46-116) U/L C-Reactive Protein 2.51 H (0.0-0.3) mg/dL Total Protein (6.4-8.2) g/dL Albumin (3.4-5.0) g/dL Globulin (2.3-3.5) g/dL Albumin/Globulin Ratio (1.2-2.2) Result Diagrams: 02/08/19 13:25 02/08/19 13:25 *Q Meaningful Use (ADM) - VTE Risk Assess *Q Each Risk Factor Represents 1 Point: Abnormal Pulmonary Function (COPD) Total Score 1 Point Risk Factors: 1 Each Risk Factor Represents 2 Points: None Total Score 2 Point Risk Factors: 0 Each Risk Factor Represents 3 Points: Age 75 Years or Greater Total Score 3 Point Risk Factors: 3 Each Risk Factor Represents 5 Points: None Total Score 5 Point Risk Factors: 0 Venous Thromboembolism Risk Factor Score *Q: 4 Problem List Initiated/Reviewed/Updated: Yes Orders Last 24hrs: Active Orders 24 hr Category Date Time Status Patient Status Manage Transfer [TRANSFER] Routine ADT 02/08/19 14:49 Ordered UA W/MICROSCOPIC [URIN] Urgent Lab 02/08/19 13:20 Ordered Sodium Chloride 0.9% [Normal Saline] 1,000 ml Med 02/08/19 13:45 Active IV ASDIRECTED Resuscitation Status Routine Resus Stat 02/08/19 14:52 Ordered Medication Orders Sodium Chloride (Normal Saline) 1,000 mls @ 999 mls/hr IV ASDIRECTED [facility]A Last Admin: 02/08/19 14:06 Dose: 999 mls/hr Assessment/Plan Comment:: ASSESSMENT AND PLAN GASTROENTERITIS-abrupt onset last night with nausea, vomiting, and diarrhea. Resulting in weakness and dehydration -Gentle IV fluids for hydration, normal saline at 75 mL per hour, she is already received 1 L of fluids in the emergency department -Zofran as needed for nausea DEHYDRATION-secondary to gastroenteritis -Management as above ACUTE KIDNEY INJURY WITH UNDERLYING CHRONIC KIDNEY DISEASE STAGE IV-secondary to dehydration with intravascular volume depletion -Expect improvement with hydration -Sleep monitor urine output and renal function HYPERKALEMIA-likely secondary to acute kidney injury -Reassess potassium level later tonight and in a.m. OXYGEN-DEPENDENT COPD-stable with no evidence of acute exacerbation -Continue use of supplemental oxygen -Continue home medical regimen MAINTENANCE ISSUES -DVT prophylaxis; Lovenox 30 mg subcutaneous daily -GI prophylaxis; continue outpatient PPI therapy -[place] catheter; not indicated -Nutrition; 2 g sodium diet -Nicotine dependence; not required CODE STATUS-DNR/DNI ADMISSION STATUS-this patient will be admitted to observation status, expect no more than a one night hospital stay for evaluation and management of problems as outlined above. DISPOSITION-anticipate discharge to home after the hospital stay. PRIMARY CARE PROVIDER-Kalyn Adams
[2019-02-08] MEDS ORDERED: Polyethylene Glycol 3350 Powder 17 GM Packet PO PRN (15:46)
[2019-02-08] MEDS ORDERED: Enoxaparin 30 MG/0.3 ML Syringe SUBCUT SCH (15:46)
[2019-02-08] MEDS ORDERED: Gabapentin 100 MG Cap PO PRN (15:46)
[2019-02-08] MEDS ORDERED: Albuterol 0.083% 2.5 MG/3 ML Neb Soln NEB PRN (15:46)
[2019-02-08] MEDS ORDERED: Sodium Chloride 0.9% 10 ML Syringe FLUSH PRN (15:46)
[2019-02-08] MEDS: Sodium Chloride 0.9% 1,000 ML IV SCH (16:03)
[2019-02-08] MEDS: Sucralfate 1 GM Tab PO SCH ×2 (16:22→20:30)
[2019-02-08] MEDS: Acetaminophen 325 MG Tab PO PRN (19:55)
[2019-02-08] MEDS ORDERED: Sodium Polystyrene Sulfonate 15 GM/60 ML Susp 60 ML Bot PO ONE (21:57)
[2019-02-08] MEDS: Gabapentin 100 MG Cap PO SCH (21:59)
[2019-02-09] MEDS: Acetaminophen 325 MG Tab PO PRN ×2 (03:41→14:34)
[2019-02-09] MEDS: Sodium Chloride 0.9% 1,000 ML IV SCH ×2 (07:20→21:51)
[2019-02-09] MEDS ORDERED: Pantoprazole 40 MG Tab.CR PO SCH (07:30)
[2019-02-09] MEDS ORDERED: Levothyroxine 88 MCG Tab PO SCH (07:30)
[2019-02-09] MEDS: traMADol 50 MG Tab PO PRN ×2 (07:57→18:32)
[2019-02-09] MEDS ORDERED: Lisinopril 5 MG Tab PO SCH (09:00)
[2019-02-09] MEDS ORDERED: Citalopram 10 MG Tab PO SCH (09:00)
[2019-02-09] MEDS ORDERED: Rosuvastatin 10 MG Tab PO SCH (09:00)
[2019-02-09] MEDS ORDERED: Hydrochlorothiazide 25 MG Tab PO SCH ×2 (09:00→18:00)
[2019-02-09] MEDS ORDERED: Metoprolol Succinate 50 MG Tab.ER PO SCH (09:00)
--- NOTE | 2019-02-09 10:19 | PCM.DCSUM1 ---
Discharge Summary - Hospital Course Brief History: 78-year-old female with history of intermittent diarrhea, stage III chronic kidney disease and oxygen dependent COPD who presented with severe diarrhea, weakness. She is admitted for management of dehydration, acute kidney injury and hyperkalemia. Diagnosis: Stroke: No - Discharge Data Discharge Date: 02/09/19 Discharge Disposition: Home, [facility] Condition: Fair - Discharge Diagnosis/Problem(s) (1) Gastroenteritis SNOMED Code(s): 95507727 ICD Code: K52.9 - NONINFECTIVE GASTROENTERITIS AND COLITIS, UNSPECIFIED Status: Acute Current Visit: Yes (2) Acute renal failure superimposed on chronic kidney disease SNOMED Code(s): 096993777 ICD Code: N17.9 - ACUTE KIDNEY FAILURE, UNSPECIFIED; N18.9 - CHRONIC KIDNEY DISEASE, UNSPECIFIED Status: Acute Current Visit: Yes Qualifiers: Chronic kidney disease stage: stage 3 (moderate) (3) Hyperkalemia SNOMED Code(s): 88843799 ICD Code: E87.5 - HYPERKALEMIA Status: Acute Current Visit: Yes (4) Chronic obstructive pulmonary disease SNOMED Code(s): 94593645 ICD Code: J44.9 - CHRONIC OBSTRUCTIVE PULMONARY DISEASE, UNSPECIFIED Status : Chronic Priority: Medium Current Visit: No Qualifiers: COPD type: unspecified COPD Qualified Code(s): J44.9 - Chronic obstructive pulmonary disease, unspecified - Patient Summary/Data Consults: Consultations 02/08/19 15:46 PT Evaluation and Treatment [CONS] Routine Please Evaluate and Treat. PT Reason for Consult: Weakness This query below is only for informational purposes and is not editable. - Patient Instructions Diet: Regular Diet as Tolerated Activity: As Tolerated Showering/Bathing: May Shower Notify Provider of: Fever, Increased Pain Other/Special Instructions: 1. You were in the hospital for management of acute gastroenteritis complicated by dehydration and elevated potassium level. Your condition has been improving with management provided in the emergency room and in the hospital. Your potassium level is now normal. You appear to be well hydrated at this time. I would recommend that you drink plenty of fluids with a goal of 64 ounces of fluids per day. 2. Continue your usual home medications as previously prescribed. 3. Follow up in 3-4 days to ensure that you continue to improve following hospital discharge. You should have your kidney function and potassium rechecked at that follow-up visit. 4. Seek medical attention if you have fever greater than 101, profound weakness or severe diarrhea - Discharge Plan *PRESCRIPTION DRUG MONITORING PROGRAM REVIEWED*: Not Applicable *COPY OF PRESCRIPTION DRUG MONITORING REPORT IN PATIENT EDILBERTO: Not Applicable Home Medications: Home Meds Aspirin [Ecotrin] 162 mg PO DAILY 08/15/14 [History] Cholecalciferol (Vitamin D3) [Vitamin D3] 2,000 unit PO DAILY 08/15/14 [History] Citalopram Hydrobromide [Celexa] 30 mg PO DAILY 08/15/14 [History] Levothyroxine [Synthroid] 88 mcg PO DAILY 08/15/14 [History] Metoprolol Succinate [Toprol Xl] 150 mg PO DAILY 08/15/14 [History] Omeprazole [Prilosec] 20 mg PO QAM 08/15/14 [History] hydroCHLOROthiazide [Hydrochlorothiazide] 12.5 mg PO DAILY 08/15/14 [History] Gabapentin [Neurontin] 100 mg PO ASDIRECTED PRN 07/11/17 [History] Multivitamin with Minerals [Multiple Vitamin] 1 tab PO DAILY 07/11/17 [History] Nystatin 100,000 unit TOP BID 07/11/17 [History] Triamcinolone Acetonide [Kenalog 0.1% Crm] 0.1 percent TOP BID 07/11/17 [History ] Albuterol [Proventil Neb Soln] 3 ml INH Q6H PRN 04/22/18 [History] Cyanocobalamin/FA/Pyridoxine [Virt-Liset Forte Tablet] 1 each PO DAILY 04/29/18 [ History] Lisinopril 5 mg PO DAILY 04/29/18 [History] Ondansetron HCl [Zofran] 4 mg PO Q8H PRN 04/29/18 [History] Rosuvastatin [Crestor] 10 mg PO DAILY 04/29/18 [History] Sucralfate [Carafate] 1 gm PO QIDACANDBED 04/29/18 [History] Oxygen Therapy Mode: Nasal Cannula Patient Handouts: Dehydration, Adult, [id number] Referrals: Nathaly Adams PA-C [Primary Care Provider] - (3-4 days - f/u after hospital stay for gastroenteritis, TRAN and elevated K+ -recheck BMP on day of visit ) - Discharge Summary/Plan Comment DC Time >30 min.: No - Patient Data Vitals - Most Recent: Last Vital Signs Temp 36.6 C 02/09/19 07:00 Pulse 117 H 02/09/19 07:00 Resp 16 02/09/19 07:00 BP 105/50 L 02/09/19 07:00 Pulse Ox 98 02/09/19 07:00 Weight - Most Recent: 144 kg I&O - Last 24 hours: Intake & Output 02/08/19 02/09/19 02/09/19 22:59 06:59 14:59 Intake Total 360 1142 Output Total 400 Balance 360 742 Lab Results - Last 24 hrs: Laboratory Results - last 24 hr 02/08/19 02/08/19 02/08/19 Range/Units 13:25 13:25 13:25 WBC 12.9 H (4.5-11.0) K/uL RBC 3.35 (3.30-5.50) M/uL Hgb 10.7 L D (12.0-15.0) g/dL Hct 35.5 L (36.0-48.0) % MCV 106 H (80-98) fL MCH 32 H (27-31) pg MCHC 30 L (32-36) % Plt Count 216 (150-400) K/uL Neut % (Auto) 84 H (36-66) % Lymph % (Auto) 7 L (24-44) % [place] % (Auto) 9 H (2-6) % Eos % (Auto) 1 L (2-4) % Baso % (Auto) 0 (0-1) % ESR 23 (0-25) mm/hr Sodium 137 L (140-148) mmol/L Potassium 5.5 H (3.6-5.2) mmol/L Chloride 106 (100-108) mmol/L Carbon Dioxide 19 L (21-32) mmol/L Anion Gap 17.5 H (5.0-14.0) mmol/L BUN 45 H D (7-18) mg/dL Creatinine 2.5 H D (0.6-1.0) mg/dL Est Cr Clr Drug Dosing 13.11 mL/min Estimated GFR (MDRD) 19 L (>60) Glucose 135 H (74-106) mg/dL Calcium 9.2 (8.5-10.1) mg/dL Total Bilirubin 0.5 D (0.2-1.0) mg/dL AST 25 (15-37) U/L ALT 19 (12-78) U/L Alkaline Phosphatase 54 (46-116) U/L C-Reactive Protein (0.0-0.3) mg/dL Total Protein 7.2 (6.4-8.2) g/dL Albumin 3.3 L (3.4-5.0) g/dL Globulin 3.9 H (2.3-3.5) g/dL Albumin/Globulin Ratio 0.9 L (1.2-2.2) Urine Color Urine Appearance Urine pH (4.5-8.0) Ur Specific [place] (1.008-1.030) Urine Protein (NEGATIVE) mg/dL Urine Glucose (UA) (NEGATIVE) mg/dL Urine Ketones (NEGATIVE) mg/dL Urine Occult Blood (NEGATIVE) Urine Nitrite (NEGATIVE) Urine Bilirubin (NEGATIVE) Urine Urobilinogen (NORMAL) mg/dL Ur Leukocyte Esterase (NEGATIVE) Urine RBC (0-5) Urine WBC (0-5) Ur Epithelial Cells Amorphous Sediment Urine Bacteria Urine Mucus 02/08/19 02/08/19 02/09/19 Range/Units 13:25 21:14 05:54 WBC 12.8 H (4.5-11.0) K/uL RBC 3.01 L (3.30-5.50) M/uL Hgb 9.8 L (12.0-15.0) g/dL Hct 31.4 L (36.0-48.0) % MCV 104 H (80-98) fL MCH 33 H (27-31) pg MCHC 31 L (32-36) % Plt Count 132 L (150-400) K/uL Neut % (Auto) (36-66) % Lymph % (Auto) (24-44) % [place] % (Auto) (2-6) % Eos % (Auto) (2-4) % Baso % (Auto) (0-1) % ESR (0-25) mm/hr Sodium (140-148) mmol/L Potassium 5.6 H (3.6-5.2) mmol/L Chloride (100-108) mmol/L Carbon Dioxide (21-32) mmol/L Anion Gap (5.0-14.0) mmol/L BUN (7-18) mg/dL Creatinine (0.6-1.0) mg/dL Est Cr Clr Drug Dosing mL/min Estimated GFR (MDRD) (>60) Glucose (74-106) mg/dL Calcium (8.5-10.1) mg/dL Total Bilirubin (0.2-1.0) mg/dL AST (15-37) U/L ALT (12-78) U/L Alkaline Phosphatase (46-116) U/L C-Reactive Protein 2.51 H (0.0-0.3) mg/dL Total Protein (6.4-8.2) g/dL Albumin (3.4-5.0) g/dL Globulin (2.3-3.5) g/dL Albumin/Globulin Ratio (1.2-2.2) Urine Color Urine Appearance Urine pH (4.5-8.0) Ur Specific [place] (1.008-1.030) Urine Protein (NEGATIVE) mg/dL Urine Glucose (UA) (NEGATIVE) mg/dL Urine Ketones (NEGATIVE) mg/dL Urine Occult Blood (NEGATIVE) Urine Nitrite (NEGATIVE) Urine Bilirubin (NEGATIVE) Urine Urobilinogen (NORMAL) mg/dL Ur Leukocyte Esterase (NEGATIVE) Urine RBC (0-5) Urine WBC (0-5) Ur Epithelial Cells Amorphous Sediment Urine Bacteria Urine Mucus 02/09/19 02/09/19 Range/Units 05:54 09:27 WBC (4.5-11.0) K/uL RBC (3.30-5.50) M/uL Hgb (12.0-15.0) g/dL Hct (36.0-48.0) % MCV (80-98) fL MCH (27-31) pg MCHC (32-36) % Plt Count (150-400) K/uL Neut % (Auto) (36-66) % Lymph % (Auto) (24-44) % [place] % (Auto) (2-6) % Eos % (Auto) (2-4) % Baso % (Auto) (0-1) % ESR (0-25) mm/hr Sodium 139 L (140-148) mmol/L Potassium 4.3 (3.6-5.2) mmol/L Chloride 110 H (100-108) mmol/L Carbon Dioxide 15 L (21-32) mmol/L Anion Gap 18.3 H (5.0-14.0) mmol/L BUN 37 H (7-18) mg/dL Creatinine 2.2 H (0.6-1.0) mg/dL Est Cr Clr Drug Dosing 14.89 mL/min Estimated GFR (MDRD) 22 L (>60) Glucose 131 H (74-106) mg/dL Calcium 8.7 (8.5-10.1) mg/dL Total Bilirubin (0.2-1.0) mg/dL AST (15-37) U/L ALT (12-78) U/L Alkaline Phosphatase (46-116) U/L C-Reactive Protein (0.0-0.3) mg/dL Total Protein (6.4-8.2) g/dL Albumin (3.4-5.0) g/dL Globulin (2.3-3.5) g/dL Albumin/Globulin Ratio (1.2-2.2) Urine Color Yellow Urine Appearance Clear Urine pH 5.0 (4.5-8.0) Ur Specific [place] 1.015 (1.008-1.030) Urine Protein 30 H (NEGATIVE) mg/dL Urine Glucose (UA) Normal (NEGATIVE) mg/dL Urine Ketones Negative (NEGATIVE) mg/dL Urine Occult Blood Moderate (NEGATIVE) Urine Nitrite Negative (NEGATIVE) Urine Bilirubin Negative (NEGATIVE) Urine Urobilinogen Normal (NORMAL) mg/dL Ur Leukocyte Esterase Negative (NEGATIVE) Urine RBC 0-5 (0-5) Urine WBC 0-5 (0-5) Ur Epithelial Cells Few Amorphous Sediment Many Urine Bacteria Not seen Urine Mucus Not seen Med Orders - Current: Current Medications Acetaminophen (Tylenol) 650 mg PO Q4H PRN PRN Reason: Pain (Mild 1-3)/fever Last Admin: 02/09/19 03:41 Dose: 650 mg Albuterol (Proventil Neb Soln) 2.5 mg NEB Q4H PRN PRN Reason: Shortness Of Breath/wheezing Albuterol/Ipratropium (Duoneb 3.0-0.5 Mg/3 Ml) 3 ml NEB QID PRN PRN Reason: Shortness Of Breath/wheezing Aspirin (Halfprin) 162 mg PO DAILY [facility] Citalopram Hydrobromide (Celexa) 30 mg PO DAILY [facility] Enoxaparin Sodium (Lovenox) 30 mg SUBCUT Q24H [facility] Gabapentin (Neurontin) 100 mg PO TID [facility] Last Admin: 02/08/19 21:59 Dose: 100 mg Hydrochlorothiazide (Hydrochlorothiazide) 12.5 mg PO DAILY [facility] Sodium Chloride (Normal Saline) 1,000 mls @ 75 mls/hr IV ASDIRECTED [facility] Last Admin: 02/09/19 07:20 Dose: 75 mls/hr Levothyroxine Sodium (Synthroid) 88 mcg PO ACBREAKFAST [facility] Lisinopril (Prinivil) 5 mg PO DAILY [facility] Metoprolol Succinate (Toprol Xl) 150 mg PO DAILY [facility] Ondansetron HCl (Zofran) 4 mg IV Q4H PRN PRN Reason: Nausea/Vomiting Pantoprazole Sodium (Protonix) 40 mg PO ACBREAKFAST [facility] Polyethylene Glycol (Miralax) 17 gm PO DAILY PRN PRN Reason: Constipation Rosuvastatin Calcium (Crestor) 10 mg PO DAILY [facility] Sodium Chloride (Saline Flush) 10 ml FLUSH ASDIRECTED PRN PRN Reason: Keep Vein Open Sucralfate (Carafate) 1 gm PO QIDACANDBED [facility] Last Admin: 02/08/19 20:30 Dose: 1 gm Tramadol HCl (Ultram) 50 mg PO Q4H PRN PRN Reason: Pain Last Admin: 02/09/19 07:57 Dose: 50 mg Discontinued Medications Acetaminophen (Tylenol) 650 mg PO NOW ONE Stop: 02/08/19 14:59 Last Admin: 02/08/19 15:05 Dose: 650 mg Enoxaparin Sodium (Lovenox) 30 mg SUBCUT DAILY [facility] Last Admin: 02/08/19 16:22 Dose: 30 mg Gabapentin (Neurontin) 100 mg PO ASDIRECTED PRN PRN Reason: Pain Sodium Chloride (Normal Saline) 1,000 mls @ 999 mls/hr IV ASDIRECTED [facility] Last Admin: 02/08/19 14:06 Dose: 999 mls/hr Ondansetron HCl (Zofran) 4 mg IVPUSH ONETIME ONE Stop: 02/08/19 13:50 Last Admin: 02/08/19 14:06 Dose: 4 mg Sodium Polystyrene Sulfonate (Kayexalate) 15 gm PO ONETIME ONE Stop: 02/08/19 21:58 Last Admin: 02/08/19 22:24 Dose: 15 gm - Exam Quality Assessment: Reports: Supplemental Oxygen General: Reports: Alert, Oriented, Cooperative, No Acute Distress Lungs: Reports: Normal Respiratory Effort GI/Abdominal Exam: Soft, No Abnormal Bruit Extremities: Normal Inspection Psy/Mental Status: Reports: Alert, Normal Affect
[2019-02-09] MEDS: Ondansetron 4 MG/2 ML SDV IV PRN ×2 (11:05→23:40)
--- NOTE | 2019-02-09 11:36 | PCM.PN ---
- General Info Date of Service: 02/09/19 Subjective Update: There were no acute events overnight. Patient did not have any fevers. Diarrhea seems to have resolved. She did not complain of any nausea but when she attempted to eat some scrambled eggs she vomited. No complaints of abdominal pain at this time. Kidney function is improving with hydration. She remains weak compared to baseline but better than yesterday. Functional Status: Reports: Pain Controlled. Denies: Tolerating Diet - Review of Systems General: Denies: Fever - Patient Data Vitals - Most Recent: Last Vital Signs Temp 37.2 C 02/09/19 10:38 Pulse 120 H 02/09/19 10:38 Resp 16 02/09/19 10:38 BP 93/50 L 02/09/19 10:38 Pulse Ox 94 L 02/09/19 10:38 Weight - Most Recent: 144 kg I&O - Last 24 Hours: Intake & Output 02/08/19 02/09/19 02/09/19 22:59 06:59 14:59 Intake Total 360 1142 Output Total 400 Balance 360 742 Lab Results Last 24 Hours: Laboratory Results - last 24 hr 02/08/19 02/08/19 02/08/19 Range/Units 13:25 13:25 13:25 WBC 12.9 H (4.5-11.0) K/uL RBC 3.35 (3.30-5.50) M/uL Hgb 10.7 L D (12.0-15.0) g/dL Hct 35.5 L (36.0-48.0) % MCV 106 H (80-98) fL MCH 32 H (27-31) pg MCHC 30 L (32-36) % Plt Count 216 (150-400) K/uL Neut % (Auto) 84 H (36-66) % Lymph % (Auto) 7 L (24-44) % [place] % (Auto) 9 H (2-6) % Eos % (Auto) 1 L (2-4) % Baso % (Auto) 0 (0-1) % ESR 23 (0-25) mm/hr Sodium 137 L (140-148) mmol/L Potassium 5.5 H (3.6-5.2) mmol/L Chloride 106 (100-108) mmol/L Carbon Dioxide 19 L (21-32) mmol/L Anion Gap 17.5 H (5.0-14.0) mmol/L BUN 45 H D (7-18) mg/dL Creatinine 2.5 H D (0.6-1.0) mg/dL Est Cr Clr Drug Dosing 13.11 mL/min Estimated GFR (MDRD) 19 L (>60) Glucose 135 H (74-106) mg/dL Calcium 9.2 (8.5-10.1) mg/dL Total Bilirubin 0.5 D (0.2-1.0) mg/dL AST 25 (15-37) U/L ALT 19 (12-78) U/L Alkaline Phosphatase 54 (46-116) U/L C-Reactive Protein (0.0-0.3) mg/dL Total Protein 7.2 (6.4-8.2) g/dL Albumin 3.3 L (3.4-5.0) g/dL Globulin 3.9 H (2.3-3.5) g/dL Albumin/Globulin Ratio 0.9 L (1.2-2.2) Urine Color Urine Appearance Urine pH (4.5-8.0) Ur Specific [place] (1.008-1.030) Urine Protein (NEGATIVE) mg/dL Urine Glucose (UA) (NEGATIVE) mg/dL Urine Ketones (NEGATIVE) mg/dL Urine Occult Blood (NEGATIVE) Urine Nitrite (NEGATIVE) Urine Bilirubin (NEGATIVE) Urine Urobilinogen (NORMAL) mg/dL Ur Leukocyte Esterase (NEGATIVE) Urine RBC (0-5) Urine WBC (0-5) Ur Epithelial Cells Amorphous Sediment Urine Bacteria Urine Mucus 02/08/19 02/08/19 02/09/19 Range/Units 13:25 21:14 05:54 WBC 12.8 H (4.5-11.0) K/uL RBC 3.01 L (3.30-5.50) M/uL Hgb 9.8 L (12.0-15.0) g/dL Hct 31.4 L (36.0-48.0) % MCV 104 H (80-98) fL MCH 33 H (27-31) pg MCHC 31 L (32-36) % Plt Count 132 L (150-400) K/uL Neut % (Auto) (36-66) % Lymph % (Auto) (24-44) % [place] % (Auto) (2-6) % Eos % (Auto) (2-4) % Baso % (Auto) (0-1) % ESR (0-25) mm/hr Sodium (140-148) mmol/L Potassium 5.6 H (3.6-5.2) mmol/L Chloride (100-108) mmol/L Carbon Dioxide (21-32) mmol/L Anion Gap (5.0-14.0) mmol/L BUN (7-18) mg/dL Creatinine (0.6-1.0) mg/dL Est Cr Clr Drug Dosing mL/min Estimated GFR (MDRD) (>60) Glucose (74-106) mg/dL Calcium (8.5-10.1) mg/dL Total Bilirubin (0.2-1.0) mg/dL AST (15-37) U/L ALT (12-78) U/L Alkaline Phosphatase (46-116) U/L C-Reactive Protein 2.51 H (0.0-0.3) mg/dL Total Protein (6.4-8.2) g/dL Albumin (3.4-5.0) g/dL Globulin (2.3-3.5) g/dL Albumin/Globulin Ratio (1.2-2.2) Urine Color Urine Appearance Urine pH (4.5-8.0) Ur Specific [place] (1.008-1.030) Urine Protein (NEGATIVE) mg/dL Urine Glucose (UA) (NEGATIVE) mg/dL Urine Ketones (NEGATIVE) mg/dL Urine Occult Blood (NEGATIVE) Urine Nitrite (NEGATIVE) Urine Bilirubin (NEGATIVE) Urine Urobilinogen (NORMAL) mg/dL Ur Leukocyte Esterase (NEGATIVE) Urine RBC (0-5) Urine WBC (0-5) Ur Epithelial Cells Amorphous Sediment Urine Bacteria Urine Mucus 02/09/19 02/09/19 Range/Units 05:54 09:27 WBC (4.5-11.0) K/uL RBC (3.30-5.50) M/uL Hgb (12.0-15.0) g/dL Hct (36.0-48.0) % MCV (80-98) fL MCH (27-31) pg MCHC (32-36) % Plt Count (150-400) K/uL Neut % (Auto) (36-66) % Lymph % (Auto) (24-44) % [place] % (Auto) (2-6) % Eos % (Auto) (2-4) % Baso % (Auto) (0-1) % ESR (0-25) mm/hr Sodium 139 L (140-148) mmol/L Potassium 4.3 (3.6-5.2) mmol/L Chloride 110 H (100-108) mmol/L Carbon Dioxide 15 L (21-32) mmol/L Anion Gap 18.3 H (5.0-14.0) mmol/L BUN 37 H (7-18) mg/dL Creatinine 2.2 H (0.6-1.0) mg/dL Est Cr Clr Drug Dosing 14.89 mL/min Estimated GFR (MDRD) 22 L (>60) Glucose 131 H (74-106) mg/dL Calcium 8.7 (8.5-10.1) mg/dL Total Bilirubin (0.2-1.0) mg/dL AST (15-37) U/L ALT (12-78) U/L Alkaline Phosphatase (46-116) U/L C-Reactive Protein (0.0-0.3) mg/dL Total Protein (6.4-8.2) g/dL Albumin (3.4-5.0) g/dL Globulin (2.3-3.5) g/dL Albumin/Globulin Ratio (1.2-2.2) Urine Color Yellow Urine Appearance Clear Urine pH 5.0 (4.5-8.0) Ur Specific [place] 1.015 (1.008-1.030) Urine Protein 30 H (NEGATIVE) mg/dL Urine Glucose (UA) Normal (NEGATIVE) mg/dL Urine Ketones Negative (NEGATIVE) mg/dL Urine Occult Blood Moderate (NEGATIVE) Urine Nitrite Negative (NEGATIVE) Urine Bilirubin Negative (NEGATIVE) Urine Urobilinogen Normal (NORMAL) mg/dL Ur Leukocyte Esterase Negative (NEGATIVE) Urine RBC 0-5 (0-5) Urine WBC 0-5 (0-5) Ur Epithelial Cells Few Amorphous Sediment Many Urine Bacteria Not seen Urine Mucus Not seen Med Orders - Current: Current Medications Acetaminophen (Tylenol) 650 mg PO Q4H PRN PRN Reason: Pain (Mild 1-3)/fever Last Admin: 02/09/19 03:41 Dose: 650 mg Albuterol (Proventil Neb Soln) 2.5 mg NEB Q4H PRN PRN Reason: Shortness Of Breath/wheezing Albuterol/Ipratropium (Duoneb 3.0-0.5 Mg/3 Ml) 3 ml NEB QID PRN PRN Reason: Shortness Of Breath/wheezing Aspirin (Halfprin) 162 mg PO DAILY [facility] Citalopram Hydrobromide (Celexa) 30 mg PO DAILY [facility] Enoxaparin Sodium (Lovenox) 30 mg SUBCUT Q24H [facility] Gabapentin (Neurontin) 100 mg PO TID [facility] Last Admin: 02/08/19 21:59 Dose: 100 mg Hydrochlorothiazide (Hydrochlorothiazide) 12.5 mg PO DAILY [facility] Levothyroxine Sodium (Synthroid) 88 mcg PO ACBREAKFAST [facility] Lisinopril (Prinivil) 5 mg PO DAILY [facility] Metoprolol Succinate (Toprol Xl) 150 mg PO DAILY [facility] Ondansetron HCl (Zofran) 4 mg IV Q4H PRN PRN Reason: Nausea/Vomiting Last Admin: 02/09/19 11:05 Dose: 4 mg Pantoprazole Sodium (Protonix) 40 mg PO ACBREAKFAST [facility] Polyethylene Glycol (Miralax) 17 gm PO DAILY PRN PRN Reason: Constipation Rosuvastatin Calcium (Crestor) 10 mg PO DAILY [facility] Sodium Chloride (Saline Flush) 10 ml FLUSH ASDIRECTED PRN PRN Reason: Keep Vein Open Sucralfate (Carafate) 1 gm PO QIDACANDBED [facility] Last Admin: 02/08/19 20:30 Dose: 1 gm Tramadol HCl (Ultram) 50 mg PO Q4H PRN PRN Reason: Pain Last Admin: 02/09/19 07:57 Dose: 50 mg Discontinued Medications Acetaminophen (Tylenol) 650 mg PO NOW ONE Stop: 02/08/19 14:59 Last Admin: 02/08/19 15:05 Dose: 650 mg Enoxaparin Sodium (Lovenox) 30 mg SUBCUT DAILY [facility] Last Admin: 02/08/19 16:22 Dose: 30 mg Gabapentin (Neurontin) 100 mg PO ASDIRECTED PRN PRN Reason: Pain Sodium Chloride (Normal Saline) 1,000 mls @ 999 mls/hr IV ASDIRECTED [facility] Last Admin: 02/08/19 14:06 Dose: 999 mls/hr Sodium Chloride (Normal Saline) 1,000 mls @ 75 mls/hr IV ASDIRECTED [facility] Last Admin: 02/09/19 07:20 Dose: 75 mls/hr Ondansetron HCl (Zofran) 4 mg IVPUSH ONETIME ONE Stop: 02/08/19 13:50 Last Admin: 02/08/19 14:06 Dose: 4 mg Sodium Polystyrene Sulfonate (Kayexalate) 15 gm PO ONETIME ONE Stop: 02/08/19 21:58 Last Admin: 02/08/19 22:24 Dose: 15 gm - Exam Quality Assessment: No: Supplemental Oxygen General: Alert, Oriented, Cooperative, No Acute Distress Lungs: Normal Respiratory Effort GI/Abdominal Exam: Soft, No Distention Extremities: No Pedal Edema Skin: Warm, Dry Psy/Mental Status: Alert, Normal Affect - Problem List & Annotations (1) Gastroenteritis SNOMED Code(s): 64153689 Code(s): K52.9 - NONINFECTIVE GASTROENTERITIS AND COLITIS, UNSPECIFIED Status: Acute Current Visit: Yes (2) Acute renal failure superimposed on chronic kidney disease SNOMED Code(s): 920415244 Code(s): N17.9 - ACUTE KIDNEY FAILURE, UNSPECIFIED; N18.9 - CHRONIC KIDNEY DISEASE, UNSPECIFIED Status: Acute Current Visit: Yes Qualifiers: Chronic kidney disease stage: stage 3 (moderate) (3) Hyperkalemia SNOMED Code(s): 05698478 Code(s): E87.5 - HYPERKALEMIA Status: Acute Current Visit: Yes (4) Chronic obstructive pulmonary disease SNOMED Code(s): 90561472 Code(s): J44.9 - CHRONIC OBSTRUCTIVE PULMONARY DISEASE, UNSPECIFIED Status : Chronic Priority: Medium Current Visit: No Qualifiers: COPD type: unspecified COPD Qualified Code(s): J44.9 - Chronic obstructive pulmonary disease, unspecified - Problem List Review Problem List Initiated/Reviewed/Updated: Yes - My Orders Last 24 Hours: My Active Orders 02/09/19 10:17 Ready for Discharge [RC] PER UNIT ROUTINE 02/09/19 11:45 Sodium Chloride 0.9% [Normal Saline] 1,000 ml IV ASDIRECTED 02/09/19 Lunch Clear Liquid Diet [DIET] - Plan Plan:: ASSESSMENT AND PLAN GASTROENTERITIS - improved since admission but unable to tolerate oral intake at this time. -Gentle IV fluids with poor intake at this time -Ondansetron as needed for nausea DEHYDRATION - secondary to gastroenteritis. Mild at this time. -Management as above ACUTE KIDNEY INJURY WITH UNDERLYING CHRONIC KIDNEY DISEASE STAGE IV - secondary to dehydration with intravascular volume depletion, level somewhat better today but not back to baseline. -Gentle hydration as above -monitor urine output and renal function HYPERKALEMIA - likely secondary to acute kidney injury, improved overnight. -Reassess potassium level in the morning OXYGEN-DEPENDENT COPD - stable with no evidence of acute exacerbation. -Continue use of supplemental oxygen -Continue home medical regimen MAINTENANCE ISSUES -DVT prophylaxis; Lovenox 30 mg subcutaneous daily -GI prophylaxis; continue outpatient PPI therapy -Mcmullen catheter; not indicated -Nutrition; 2 g sodium diet DISPOSITION - anticipate discharge to home after the hospital stay. Aneesh Guan M.D.
[2019-02-09] MEDS: Sucralfate 1 GM Tab PO SCH ×3 (12:50→20:25)
[2019-02-09] MEDS: Gabapentin 100 MG Cap PO SCH ×3 (12:51→20:27)
[2019-02-09] MEDS: Aspirin 81 MG Tab.EC PO SCH (12:51)
[2019-02-09] MEDS: Enoxaparin 30 MG/0.3 ML Syringe SUBCUT SCH (16:57)
[2019-02-09] MEDS: CITALOPRAM 20 MG PO SCH (18:24)
[2019-02-09] MEDS: CITALOPRAM 10 MG PO SCH (18:24)
[2019-02-09] MEDS: Rosuvastatin 10 MG Tab PO SCH (18:25)
[2019-02-09] MEDS: Lisinopril 5 MG Tab PO SCH (18:26)
[2019-02-09] MEDS: Hydrochlorothiazide 12.5 MG Cap PO SCH (18:26)
[2019-02-09] MEDS: METOPROLOL SUCCINATE 100 MG PO SCH ×2 (18:26→18:48)
[2019-02-09] MEDS: OMEPRAZOLE 20 MG PO SCH (18:27)
[2019-02-09] MEDS: LEVOTHYROXINE 88 MCG PO SCH (18:36)
[2019-02-10] MEDS: Acetaminophen 325 MG Tab PO PRN ×3 (01:08→21:54)
[2019-02-10] MEDS: traMADol 50 MG Tab PO PRN ×3 (03:09→19:41)
[2019-02-10] MEDS: LEVOTHYROXINE 88 MCG PO SCH (07:30)
[2019-02-10] MEDS: Sucralfate 1 GM Tab PO SCH ×4 (07:31→21:55)
[2019-02-10] MEDS: OMEPRAZOLE 20 MG PO SCH (07:31)
[2019-02-10] MEDS: Sodium Chloride 0.9% 1,000 ML IV SCH ×2 (08:37→19:13)
[2019-02-10] MEDS: CITALOPRAM 10 MG PO SCH (09:29)
[2019-02-10] MEDS: CITALOPRAM 20 MG PO SCH (09:29)
[2019-02-10] MEDS: Rosuvastatin 10 MG Tab PO SCH (09:30)
[2019-02-10] MEDS: Aspirin 81 MG Tab.EC PO SCH (09:30)
[2019-02-10] MEDS: Gabapentin 100 MG Cap PO SCH ×3 (09:31→21:55)
[2019-02-10] MEDS: Hydrochlorothiazide 12.5 MG Cap PO SCH (10:45)
[2019-02-10] MEDS: METOPROLOL SUCCINATE 100 MG PO SCH (10:46)
[2019-02-10] MEDS: Lisinopril 5 MG Tab PO SCH (10:46)
[2019-02-10] MEDS: Ondansetron 4 MG/2 ML SDV IV PRN ×2 (10:56→20:03)
[2019-02-10] MEDS ORDERED: Ketorolac 30 MG/ML SDV IVPUSH ONE (11:21)
--- NOTE | 2019-02-10 11:23 | PCM.PN ---
- General Info Date of Service: 02/10/19 Subjective Update: There were no acute events overnight. Blood pressure was low this morning with systolic pressures around 90. The patient reports generalized pain including shoulders, arms, chest and abdomen. She describes an achy pain. She has had some nausea but not diarrhea. She has been doing some coughing and feels a little short of breath. Chest x-ray obtained this morning did show probable right lower lobe pneumonia. No fevers. Functional Status: Denies: Pain Controlled, Tolerating Diet - Review of Systems General: Reports: Weakness Pulmonary: Reports: Shortness of Breath Cardiovascular: Reports: Chest Pain Gastrointestinal: Reports: Nausea - Patient Data Vitals - Most Recent: Last Vital Signs Temp 36.3 C 02/10/19 10:21 Pulse 75 02/10/19 10:21 Resp 18 02/10/19 10:21 BP 110/63 02/10/19 10:21 Pulse Ox 95 02/10/19 10:21 Weight - Most Recent: 144 kg I&O - Last 24 Hours: Intake & Output 02/09/19 02/10/19 02/10/19 22:59 06:59 14:59 Intake Total 814 764 Output Total 50 0 Balance 764 764 0 Med Orders - Current: Current Medications Acetaminophen (Tylenol) 650 mg PO Q4H PRN PRN Reason: Pain (Mild 1-3)/fever Last Admin: 02/10/19 07:28 Dose: 650 mg Albuterol (Proventil Neb Soln) 2.5 mg NEB Q4H PRN PRN Reason: Shortness Of Breath/wheezing Albuterol/Ipratropium (Duoneb 3.0-0.5 Mg/3 Ml) 3 ml NEB QID PRN PRN Reason: Shortness Of Breath/wheezing Aspirin (Halfprin) 162 mg PO DAILY [facility] Last Admin: 02/10/19 09:30 Dose: 162 mg Citalopram Hydrobromide (Celexa) 10 mg PO DAILY [facility] Last Admin: 02/10/19 09:29 Dose: 10 mg Citalopram Hydrobromide (Celexa) 20 mg PO DAILY [facility] Last Admin: 02/10/19 09:29 Dose: 20 mg Enoxaparin Sodium (Lovenox) 30 mg SUBCUT Q24H [facility] Last Admin: 02/09/19 16:57 Dose: 30 mg Gabapentin (Neurontin) 100 mg PO TID [facility] Last Admin: 02/10/19 09:31 Dose: 100 mg Hydrochlorothiazide (Hydrochlorothiazide) 12.5 mg PO DAILY [facility] Last Admin: 02/10/19 10:45 Dose: Not Given Sodium Chloride (Normal Saline) 1,000 mls @ 100 mls/hr IV ASDIRECTED [facility] Last Admin: 02/10/19 08:37 Dose: 100 mls/hr Levothyroxine Sodium (Synthroid) 88 mcg PO ACBREAKFAST [facility] Last Admin: 02/10/19 07:30 Dose: 88 mcg Lisinopril (Prinivil) 5 mg PO DAILY [facility] Last Admin: 02/10/19 10:46 Dose: Not Given Ondansetron HCl (Zofran) 4 mg IV Q4H PRN PRN Reason: Nausea/Vomiting Last Admin: 02/10/19 10:56 Dose: 4 mg Metoprolol Succinate (100mg Pom) 0 each PO DAILY [facility] Last Admin: 02/10/19 10:46 Dose: Not Given Omeprazole 20mg (Pom) 0 each PO DAILY@0730 [facility] Last Admin: 02/10/19 07:31 Dose: 1 each Polyethylene Glycol (Miralax) 17 gm PO DAILY PRN PRN Reason: Constipation Rosuvastatin Calcium (Crestor) 10 mg PO DAILY [facility] Last Admin: 02/10/19 09:30 Dose: 10 mg Sodium Chloride (Saline Flush) 10 ml FLUSH ASDIRECTED PRN PRN Reason: Keep Vein Open Sucralfate (Carafate) 1 gm PO QIDACANDBED [facility] Last Admin: 02/10/19 07:31 Dose: 1 gm Tramadol HCl (Ultram) 50 mg PO Q4H PRN PRN Reason: Pain Last Admin: 02/10/19 10:49 Dose: 50 mg Discontinued Medications Acetaminophen (Tylenol) 650 mg PO NOW ONE Stop: 02/08/19 14:59 Last Admin: 02/08/19 15:05 Dose: 650 mg Citalopram Hydrobromide (Celexa) 30 mg PO DAILY [facility] Last Admin: 02/09/19 12:51 Dose: Not Given Enoxaparin Sodium (Lovenox) 30 mg SUBCUT DAILY [facility] Last Admin: 02/08/19 16:22 Dose: 30 mg Gabapentin (Neurontin) 100 mg PO ASDIRECTED PRN PRN Reason: Pain Hydrochlorothiazide (Hydrochlorothiazide) 12.5 mg PO DAILY [facility] Last Admin: 02/09/19 12:51 Dose: Not Given Sodium Chloride (Normal Saline) 1,000 mls @ 999 mls/hr IV ASDIRECTED [facility] Last Admin: 02/08/19 14:06 Dose: 999 mls/hr Sodium Chloride (Normal Saline) 1,000 mls @ 75 mls/hr IV ASDIRECTED [facility] Last Admin: 02/09/19 07:20 Dose: 75 mls/hr Levothyroxine Sodium (Synthroid) 88 mcg PO ACBREAKFAST [facility] Last Admin: 02/09/19 12:50 Dose: Not Given Lisinopril (Prinivil) 5 mg PO DAILY [facility] Last Admin: 02/09/19 12:52 Dose: Not Given Lisinopril (Prinivil) 5 mg PO DAILY [facility] Metoprolol Succinate (Toprol Xl) 150 mg PO DAILY [facility] Last Admin: 02/09/19 12:52 Dose: Not Given Ondansetron HCl (Zofran) 4 mg IVPUSH ONETIME ONE Stop: 02/08/19 13:50 Last Admin: 02/08/19 14:06 Dose: 4 mg Pantoprazole Sodium (Protonix) 40 mg PO ACBREAKFAST [facility] Last Admin: 02/09/19 12:50 Dose: Not Given Rosuvastatin Calcium (Crestor) 10 mg PO DAILY [facility] Last Admin: 02/09/19 12:51 Dose: Not Given Sodium Polystyrene Sulfonate (Kayexalate) 15 gm PO ONETIME ONE Stop: 02/08/19 21:58 Last Admin: 02/08/19 22:24 Dose: 15 gm - Exam Quality Assessment: Supplemental Oxygen General: Alert, Oriented, Cooperative, Mild Distress Lungs: Normal Respiratory Effort, Crackles (right lower lung). No: Wheezing Cardiovascular: Regular Rate, Regular Rhythm GI/Abdominal Exam: Normal Bowel Sounds, Soft, No Distention Extremities: No Pedal Edema Skin: Warm, Dry Psy/Mental Status: Alert, Normal Affect - Problem List & Annotations (1) Gastroenteritis SNOMED Code(s): 55274935 Code(s): K52.9 - NONINFECTIVE GASTROENTERITIS AND COLITIS, UNSPECIFIED Status: Acute Current Visit: Yes (2) Acute renal failure superimposed on chronic kidney disease SNOMED Code(s): 128594971 Code(s): N17.9 - ACUTE KIDNEY FAILURE, UNSPECIFIED; N18.9 - CHRONIC KIDNEY DISEASE, UNSPECIFIED Status: Acute Current Visit: Yes Qualifiers: Acute renal failure type: unspecified Chronic kidney disease stage: stage 3 (moderate) Qualified Code(s): N17.9 - Acute kidney failure, unspecified; N18.3 - Chronic kidney disease, stage 3 (moderate) (3) Hyperkalemia SNOMED Code(s): 08423090 Code(s): E87.5 - HYPERKALEMIA Status: Acute Current Visit: Yes (4) Chronic obstructive pulmonary disease SNOMED Code(s): 37543046 Code(s): J44.9 - CHRONIC OBSTRUCTIVE PULMONARY DISEASE, UNSPECIFIED Status : Chronic Priority: Medium Current Visit: No Qualifiers: COPD type: unspecified COPD Qualified Code(s): J44.9 - Chronic obstructive pulmonary disease, unspecified - Problem List Review Problem List Initiated/Reviewed/Updated: Yes - My Orders Last 24 Hours: My Active Orders 02/09/19 11:45 Sodium Chloride 0.9% [Normal Saline] 1,000 ml IV ASDIRECTED 02/09/19 Lunch Clear Liquid Diet [DIET] 02/10/19 11:01 CXR [Chest 1V Frontal] [CR] Urgent 02/10/19 11:20 Patient Status [ADT] Routine 02/10/19 11:21 Ketorolac [Toradol] 15 mg IVPUSH ONETIME ONE 02/10/19 11:30 Azithromycin [Zithromax] 500 mg PO DAILY cefTRIAXone [Rocephin] 1 gm Sodium Chloride 0.9% [Normal Saline] 50 ml IV Q24H 02/10/19 21:00 Lactobacillus Rhamnosus GG [Culturelle] 1 cap PO BID 02/11/19 05:00 BASIC METABOLIC PANEL,BMP [CHEM] Timed CBC W/O DIFF,HEMOGRAM [HEME] Timed (1) - Plan Plan:: ASSESSMENT AND PLAN Right lower lobe pneumonia - discovered today, I suspect this was the cause for her nausea with vomiting and diarrhea since the infiltrate appears to be low on the right side of her chest. Blood pressures are on the low side at this time. -Start ceftriaxone and azithromycin -Blood cultures if fever -One-time dose of Toradol for pain -Continue Gentle IV fluids with poor intake at this time -Ondansetron as needed for nausea DEHYDRATION - secondary to gastroenteritis. Slowly improving. -Management as above ACUTE KIDNEY INJURY WITH UNDERLYING CHRONIC KIDNEY DISEASE STAGE IV - secondary to dehydration with intravascular volume depletion, level has continued to improve throughout the hospital stay. -Gentle hydration as above -monitor urine output and renal function HYPERKALEMIA - likely secondary to acute kidney injury, potassium level normal. -Reassess potassium level in the morning OXYGEN-DEPENDENT COPD - stable with no evidence of acute exacerbation. -Continue use of supplemental oxygen -Continue home medical regimen MAINTENANCE ISSUES -DVT prophylaxis; Lovenox 30 mg subcutaneous daily -GI prophylaxis; continue outpatient PPI therapy -Mcmullen catheter; not indicated -Nutrition; 2 g sodium diet DISPOSITION - anticipate discharge to home after the hospital stay. Aneesh Guan M.D.
--- NOTE | 2019-02-10 11:51 | CRLCR ---
INDICATION: Shortness of breath. TECHNIQUE: Single view of the chest. COMPARISON: None. FINDINGS: Heart and mediastinum are normal. Aorta is calcified. No consolidations or pleural effusions are identified. Trachea is midline. No pneumothorax. IMPRESSION: No evidence of acute disease. Dictated by Joseph Mederos MD @ Feb 10 2019 11:47AM Signed by Dr. Joseph Mederos @ Feb 10 2019 11:49AM
[2019-02-10] MEDS: Azithromycin 250 MG Tab PO SCH (12:50)
[2019-02-10] MEDS: cefTRIAXone 1 GM in Sodium Chloride 0.9% 50 ML IV SCH (12:56)
[2019-02-10] MEDS: Enoxaparin 30 MG/0.3 ML Syringe SUBCUT SCH (16:17)
[2019-02-10] MEDS ORDERED: Lisinopril 5 MG Tab PO SCH (18:00)
[2019-02-10] MEDS ORDERED: methylPREDNISolone Sodium Succinate 125 MG/2 ML SDV IVPUSH ONE (20:18)
[2019-02-10] MEDS: Albuterol/Ipratropium 3.0-0.5 MG/3 ML Neb Soln NEB PRN (21:54)
[2019-02-10] MEDS: oxyCODONE 5 MG Tab PO PRN (21:55)
[2019-02-10] MEDS: Lactobacillus Rhamnosus GG (Probiotic) Cap PO SCH ×2 (21:55→22:04)
[2019-02-11] MEDS: Sodium Chloride 0.9% 1,000 ML IV SCH ×2 (05:18→17:24)
[2019-02-11] MEDS: oxyCODONE 5 MG Tab PO PRN ×2 (05:39→23:16)
[2019-02-11] MEDS: traMADol 50 MG Tab PO PRN ×2 (07:34→18:38)
[2019-02-11] MEDS: Ondansetron 4 MG/2 ML SDV IV PRN (07:35)
[2019-02-11] MEDS: OMEPRAZOLE 20 MG PO SCH (07:40)
[2019-02-11] MEDS: Sucralfate 1 GM Tab PO SCH ×4 (07:40→20:50)
[2019-02-11] MEDS: Levothyroxine 88 MCG Tab PO SCH (07:41)
[2019-02-11] MEDS: Azithromycin 250 MG Tab PO SCH (09:27)
[2019-02-11] MEDS: Gabapentin 100 MG Cap PO SCH ×3 (09:27→20:50)
[2019-02-11] MEDS: Rosuvastatin 10 MG Tab PO SCH (09:28)
[2019-02-11] MEDS: Aspirin 81 MG Tab.EC PO SCH (09:28)
[2019-02-11] MEDS: Lactobacillus Rhamnosus GG (Probiotic) Cap PO SCH ×2 (09:28→20:50)
[2019-02-11] MEDS: Citalopram 10 MG Tab PO SCH (09:28)
[2019-02-11] MEDS: Citalopram 20 MG Tab PO SCH (09:28)
[2019-02-11] MEDS: Metoprolol Succinate 50 MG Tab.ER PO SCH (09:29)
--- NOTE | 2019-02-11 10:43 | PCM.PN ---
- General Info Date of Service: 02/11/19 Subjective Update: There were no acute events overnight. Patient reports that she still does not feel well and reports diffuse myalgias and some arthralgias. These are mostly in the upper part of her body including upper back and shoulders. No diarrhea but she has persistent nausea. Creatinine has risen today from yesterday. Blood pressures remain on the low side of normal despite holding her blood pressure medications. Urine output has not been great. Oxygenation has been stable. Cough is minimal. Functional Status: Denies: Pain Controlled, Tolerating Diet - Review of Systems General: Denies: Fever Musculoskeletal: Reports: Other (bilateral shoulder and upper arm pain both joints and muscles ) Psychiatric: Reports: Hallucinations - Patient Data Vitals - Most Recent: Last Vital Signs Temp 35.9 C 02/11/19 07:00 Pulse 96 02/11/19 09:29 Resp 16 02/11/19 07:00 BP 109/70 02/11/19 09:29 Pulse Ox 93 L 02/11/19 07:00 Weight - Most Recent: 65.317 kg I&O - Last 24 Hours: Intake & Output 02/10/19 02/11/19 02/11/19 22:59 06:59 14:59 Intake Total 1180 1350 Output Total 200 Balance 1180 1150 Lab Results Last 24 Hours: Laboratory Results - last 24 hr 02/11/19 02/11/19 Range/Units 05:30 05:30 WBC 9.0 (4.5-11.0) K/uL RBC 2.60 L (3.30-5.50) M/uL Hgb 8.3 L (12.0-15.0) g/dL Hct 28.2 L (36.0-48.0) % MCV 109 H (80-98) fL MCH 32 H (27-31) pg MCHC 29 L (32-36) % Plt Count 175 (150-400) K/uL Sodium 141 (140-148) mmol/L Potassium 5.0 (3.6-5.2) mmol/L Chloride 112 H (100-108) mmol/L Carbon Dioxide 17 L (21-32) mmol/L Anion Gap 17.0 H (5.0-14.0) mmol/L BUN 48 H (7-18) mg/dL Creatinine 2.9 H (0.6-1.0) mg/dL Est Cr Clr Drug Dosing 11.30 mL/min Estimated GFR (MDRD) 16 L (>60) Glucose 130 H (74-106) mg/dL Calcium 8.5 (8.5-10.1) mg/dL Med Orders - Current: Current Medications Acetaminophen (Tylenol) 650 mg PO Q4H PRN PRN Reason: Pain (Mild 1-3)/fever Last Admin: 02/10/19 21:54 Dose: 650 mg Albuterol (Proventil Neb Soln) 2.5 mg NEB Q4H PRN PRN Reason: Shortness Of Breath/wheezing Albuterol/Ipratropium (Duoneb 3.0-0.5 Mg/3 Ml) 3 ml NEB QID PRN PRN Reason: Shortness Of Breath/wheezing Last Admin: 02/10/19 21:54 Dose: 3 ml Aspirin (Halfprin) 162 mg PO DAILY [facility] Last Admin: 02/11/19 09:28 Dose: 162 mg Azithromycin (Zithromax) 500 mg PO DAILY [facility] Last Admin: 02/11/19 09:27 Dose: 500 mg Citalopram Hydrobromide (Celexa) 10 mg PO DAILY [facility] Last Admin: 02/11/19 09:28 Dose: 10 mg Citalopram Hydrobromide (Celexa) 20 mg PO DAILY [facility] Last Admin: 02/11/19 09:28 Dose: 20 mg Enoxaparin Sodium (Lovenox) 30 mg SUBCUT Q24H [facility] Last Admin: 02/10/19 16:17 Dose: 30 mg Gabapentin (Neurontin) 100 mg PO TID [facility] Last Admin: 02/11/19 09:27 Dose: 100 mg Hydrochlorothiazide (Hydrochlorothiazide) 12.5 mg PO DAILY [facility] Last Admin: 02/10/19 10:45 Dose: Not Given Sodium Chloride (Normal Saline) 1,000 mls @ 100 mls/hr IV ASDIRECTED [facility] Last Admin: 02/11/19 05:18 Dose: 100 mls/hr Ceftriaxone Sodium 1 gm/ (Sodium Chloride) 50 mls @ 100 mls/hr IV Q24H [facility] Last Admin: 02/10/19 12:56 Dose: 100 mls/hr Lactobacillus Rhamnosus (Culturelle) 1 cap PO BID [facility] Last Admin: 02/11/19 09:28 Dose: 1 cap Levothyroxine Sodium (Synthroid) 88 mcg PO DAILY@0730 [facility] Last Admin: 02/11/19 07:41 Dose: Not Given Lisinopril (Prinivil) 5 mg PO DAILY [facility] Last Admin: 02/10/19 10:46 Dose: Not Given Metoprolol Succinate (Toprol Xl) 150 mg PO DAILY [facility] Last Admin: 02/11/19 09:29 Dose: 150 mg Ondansetron HCl (Zofran) 4 mg IV Q4H PRN PRN Reason: Nausea/Vomiting Last Admin: 02/11/19 07:35 Dose: 4 mg Oxycodone HCl (Oxycodone) 5 mg PO Q4H PRN PRN Reason: Pain Last Admin: 02/11/19 05:39 Dose: 5 mg Omeprazole 20mg (Pom) 0 each PO DAILY@0730 [facility] Last Admin: 02/11/19 07:40 Dose: Not Given Polyethylene Glycol (Miralax) 17 gm PO DAILY PRN PRN Reason: Constipation Rosuvastatin Calcium (Crestor) 10 mg PO DAILY [facility] Last Admin: 02/11/19 09:28 Dose: 10 mg Sodium Chloride (Saline Flush) 10 ml FLUSH ASDIRECTED PRN PRN Reason: Keep Vein Open Sucralfate (Carafate) 1 gm PO QIDACANDBED [facility] Last Admin: 02/11/19 07:40 Dose: Not Given Tramadol HCl (Ultram) 50 mg PO Q4H PRN PRN Reason: Pain Last Admin: 02/11/19 07:34 Dose: 50 mg Discontinued Medications Acetaminophen (Tylenol) 650 mg PO NOW ONE Stop: 02/08/19 14:59 Last Admin: 02/08/19 15:05 Dose: 650 mg Citalopram Hydrobromide (Celexa) 30 mg PO DAILY [facility] Last Admin: 02/09/19 12:51 Dose: Not Given Citalopram Hydrobromide (Celexa) 10 mg PO DAILY [facility] Last Admin: 02/10/19 09:29 Dose: 10 mg Citalopram Hydrobromide (Celexa) 20 mg PO DAILY [facility] Last Admin: 02/10/19 09:29 Dose: 20 mg Enoxaparin Sodium (Lovenox) 30 mg SUBCUT DAILY [facility] Last Admin: 02/08/19 16:22 Dose: 30 mg Gabapentin (Neurontin) 100 mg PO ASDIRECTED PRN PRN Reason: Pain Hydrochlorothiazide (Hydrochlorothiazide) 12.5 mg PO DAILY [facility] Last Admin: 02/09/19 12:51 Dose: Not Given Sodium Chloride (Normal Saline) 1,000 mls @ 999 mls/hr IV ASDIRECTED [facility] Last Admin: 02/08/19 14:06 Dose: 999 mls/hr Sodium Chloride (Normal Saline) 1,000 mls @ 75 mls/hr IV ASDIRECTED [facility] Last Admin: 02/09/19 07:20 Dose: 75 mls/hr Ketorolac Tromethamine (Toradol) 15 mg IVPUSH ONETIME ONE Stop: 02/10/19 11:22 Last Admin: 02/10/19 11:31 Dose: 15 mg Levothyroxine Sodium (Synthroid) 88 mcg PO ACBREAKFAST [facility] Last Admin: 02/09/19 12:50 Dose: Not Given Levothyroxine Sodium (Synthroid) 88 mcg PO ACBREAKFAST [facility] Last Admin: 02/10/19 07:30 Dose: 88 mcg Lisinopril (Prinivil) 5 mg PO DAILY [facility] Last Admin: 02/09/19 12:52 Dose: Not Given Lisinopril (Prinivil) 5 mg PO DAILY [facility] Methylprednisolone Sodium Succinate (Solu-Medrol) 125 mg IVPUSH ONETIME ONE Stop: 02/10/19 20:19 Last Admin: 02/10/19 20:32 Dose: 125 mg Metoprolol Succinate (Toprol Xl) 150 mg PO DAILY [facility] Last Admin: 02/09/19 12:52 Dose: Not Given Ondansetron HCl (Zofran) 4 mg IVPUSH ONETIME ONE Stop: 02/08/19 13:50 Last Admin: 02/08/19 14:06 Dose: 4 mg Pantoprazole Sodium (Protonix) 40 mg PO ACBREAKFAST [facility] Last Admin: 02/09/19 12:50 Dose: Not Given Metoprolol Succinate (100mg Pom) 0 each PO DAILY [facility] Last Admin: 02/10/19 10:46 Dose: Not Given Rosuvastatin Calcium (Crestor) 10 mg PO DAILY [facility] Last Admin: 02/09/19 12:51 Dose: Not Given Sodium Polystyrene Sulfonate (Kayexalate) 15 gm PO ONETIME ONE Stop: 02/08/19 21:58 Last Admin: 02/08/19 22:24 Dose: 15 gm - Exam Quality Assessment: Supplemental Oxygen General: Alert, Oriented, Cooperative, No Acute Distress HEENT: Pupils Equal Lungs: Normal Respiratory Effort, Crackles (right lung base) Cardiovascular: Regular Rate, Regular Rhythm GI/Abdominal Exam: Soft, No Distention Extremities: No Pedal Edema. No: Increased Warmth Psy/Mental Status: Alert, Normal Affect - Problem List & Annotations (1) Gastroenteritis SNOMED Code(s): 03525168 Code(s): K52.9 - NONINFECTIVE GASTROENTERITIS AND COLITIS, UNSPECIFIED Status: Acute Current Visit: Yes (2) Acute renal failure superimposed on chronic kidney disease SNOMED Code(s): 879541418 Code(s): N17.9 - ACUTE KIDNEY FAILURE, UNSPECIFIED; N18.9 - CHRONIC KIDNEY DISEASE, UNSPECIFIED Status: Acute Current Visit: Yes Qualifiers: Acute renal failure type: unspecified Chronic kidney disease stage: stage 3 (moderate) Qualified Code(s): N17.9 - Acute kidney failure, unspecified; N18.3 - Chronic kidney disease, stage 3 (moderate) (3) Hyperkalemia SNOMED Code(s): 90634362 Code(s): E87.5 - HYPERKALEMIA Status: Acute Current Visit: Yes (4) Chronic obstructive pulmonary disease SNOMED Code(s): 98603815 Code(s): J44.9 - CHRONIC OBSTRUCTIVE PULMONARY DISEASE, UNSPECIFIED Status : Chronic Priority: Medium Current Visit: No Qualifiers: COPD type: unspecified COPD Qualified Code(s): J44.9 - Chronic obstructive pulmonary disease, unspecified - Problem List Review Problem List Initiated/Reviewed/Updated: Yes - My Orders Last 24 Hours: My Active Orders 02/10/19 11:20 Patient Status [ADT] Routine 02/10/19 11:30 Azithromycin [Zithromax] 500 mg PO DAILY 02/10/19 12:00 cefTRIAXone [Rocephin] 1 gm Sodium Chloride 0.9% [Normal Saline] 50 ml IV Q24H 02/10/19 20:18 oxyCODONE 5 mg PO Q4H PRN 02/10/19 21:00 Lactobacillus Rhamnosus GG [Culturelle] 1 cap PO BID 02/11/19 10:45 methylPREDNISolone Sod Succ [Solu-MEDROL] 40 mg IVPUSH Q8H 02/11/19 Lunch Full Liquid Diet [DIET] 02/12/19 05:00 BASIC METABOLIC PANEL,BMP [CHEM] Timed CBC W/O DIFF,HEMOGRAM [HEME] Timed (1) TSH ULTRASENSITIVE [CHEM] Timed - Plan Plan:: ASSESSMENT AND PLAN Right lower lobe pneumonia - discovered 02/10, I suspect this was the cause for her nausea with vomiting and diarrhea. Oxygenation is stable. Cough seems a little better today. Tolerating current antibiotics. -Continue ceftriaxone and azithromycin -Blood cultures if fever -IV steroids to help with myalgias -Continue Gentle IV fluids with poor intake at this time -Ondansetron as needed for nausea DEHYDRATION - secondary to gastroenteritis. Slowly improving. -Management as above ACUTE KIDNEY INJURY WITH UNDERLYING CHRONIC KIDNEY DISEASE STAGE IIIb - secondary to dehydration with intravascular volume depletion, level had been improving but has risen again since yesterday. -Gentle hydration as above -monitor urine output and renal function HYPERKALEMIA - likely secondary to acute kidney injury, potassium level normal. -Reassess potassium level in the morning OXYGEN-DEPENDENT COPD - stable with no evidence of acute exacerbation. -Continue use of supplemental oxygen -Continue home medical regimen MAINTENANCE ISSUES -DVT prophylaxis; Lovenox 30 mg subcutaneous daily -GI prophylaxis; continue outpatient PPI therapy -Mcmullen catheter; not indicated -Nutrition; 2 g sodium diet DISPOSITION - anticipate discharge to home versus possibly the jail after the hospital stay. Aneesh Guan M.D.
[2019-02-11] MEDS: methylPREDNISolone Sodium Succinate 40 MG/1 ML SDV IVPUSH SCH ×2 (11:02→17:24)
[2019-02-11] MEDS: cefTRIAXone 1 GM in Sodium Chloride 0.9% 50 ML IV SCH (12:09)
[2019-02-11] MEDS ORDERED: Sodium Chloride 0.9% 500 ML IV ONE (12:30)
[2019-02-11] MEDS: Enoxaparin 30 MG/0.3 ML Syringe SUBCUT SCH (15:55)
[2019-02-11] MEDS ORDERED: LORazepam 2 MG/ML SDV IVPUSH ONE (23:10)
[2019-02-12] MEDS ORDERED: Sodium Chloride 0.9% 1,000 ML IV SCH (01:30)
[2019-02-12] MEDS: Sodium Chloride 0.9% 1,000 ML IV SCH ×2 (02:15→11:07)
[2019-02-12] MEDS: methylPREDNISolone Sodium Succinate 40 MG/1 ML SDV IVPUSH SCH ×2 (02:18→10:35)
[2019-02-12] MEDS ORDERED: LORazepam 2 MG/ML SDV IVPUSH ONE (03:03)
[2019-02-12] MEDS ORDERED: Bumetanide 2.5 MG/10 ML MDV IVPUSH ONE (03:31)
[2019-02-12] MEDS ORDERED: Furosemide 20 MG/2 ML VIAL IVPUSH ONE (05:28)
[2019-02-12] MEDS: oxyCODONE 5 MG Tab PO PRN ×2 (08:11→08:52)
[2019-02-12] MEDS: Gabapentin 100 MG Cap PO SCH ×2 (08:24→13:20)
[2019-02-12] MEDS: Levothyroxine 88 MCG Tab PO SCH (08:29)
[2019-02-12] MEDS: OMEPRAZOLE 20 MG PO SCH (08:29)
[2019-02-12] MEDS: Sucralfate 1 GM Tab PO SCH ×2 (08:29→10:30)
[2019-02-12] MEDS: Aspirin 81 MG Tab.EC PO SCH (08:59)
[2019-02-12] MEDS: Lactobacillus Rhamnosus GG (Probiotic) Cap PO SCH (08:59)
[2019-02-12] MEDS: Metoprolol Succinate 50 MG Tab.ER PO SCH (08:59)
[2019-02-12] MEDS: Citalopram 10 MG Tab PO SCH (09:00)
[2019-02-12] MEDS: Citalopram 20 MG Tab PO SCH (09:00)
[2019-02-12] MEDS: Rosuvastatin 10 MG Tab PO SCH (09:00)
[2019-02-12] MEDS: Azithromycin 250 MG Tab PO SCH (10:30)
[2019-02-12] MEDS: cefTRIAXone 1 GM in Sodium Chloride 0.9% 50 ML IV SCH (11:06)
[2019-02-12 11:11] VITALS: BP 117/76
--- NOTE | 2019-02-12 12:40 | PCM.DCSUM1 ---
Discharge Summary - Hospital Course Brief History: 78-year-old female with history of oxygen dependent COPD, stage IV chronic kidney disease who presented with onset of nausea, vomiting and diarrhea. She was admitted for management of presumed gastroenteritis with dehydration. Diagnosis: Stroke: No - Discharge Data Discharge Date: 02/12/19 Discharge Disposition: DC/Tfer to [facility] Condition: Serious - Discharge Diagnosis/Problem(s) (1) Gastroenteritis SNOMED Code(s): 30808687 ICD Code: K52.9 - NONINFECTIVE GASTROENTERITIS AND COLITIS, UNSPECIFIED Status: Acute Current Visit: Yes (2) Acute renal failure superimposed on chronic kidney disease SNOMED Code(s): 678517183 ICD Code: N17.9 - ACUTE KIDNEY FAILURE, UNSPECIFIED; N18.9 - CHRONIC KIDNEY DISEASE, UNSPECIFIED Status: Acute Current Visit: Yes Qualifiers: Acute renal failure type: with acute tubular necrosis Chronic kidney disease stage: stage 4 (severe) Qualified Code(s): N17.0 - Acute kidney failure with tubular necrosis; N18.4 - Chronic kidney disease, stage 4 (severe) (3) Hyperkalemia SNOMED Code(s): 51801006 ICD Code: E87.5 - HYPERKALEMIA Status: Acute Current Visit: Yes (4) Chronic obstructive pulmonary disease SNOMED Code(s): 09945026 ICD Code: J44.9 - CHRONIC OBSTRUCTIVE PULMONARY DISEASE, UNSPECIFIED Status : Chronic Priority: Medium Current Visit: No Qualifiers: COPD type: unspecified COPD Qualified Code(s): J44.9 - Chronic obstructive pulmonary disease, unspecified (5) Right lower lobe pneumonia SNOMED Code(s): 885961308 ICD Code: J18.1 - LOBAR PNEUMONIA, UNSPECIFIED ORGANISM Status: Acute Current Visit: Yes Qualifiers: Pneumonia type: due to unspecified organism Qualified Code(s): J18.1 - Lobar pneumonia, unspecified organism - Patient Summary/Data Consults: Consultations 02/08/19 15:46 PT Evaluation and Treatment [CONS] Routine Please Evaluate and Treat. PT Reason for Consult: Weakness This query below is only for informational purposes and is not editable. 02/11/19 11:24 DENTAL APPLIANCE FIXER Evaluation and Treatment [CONS] Routine Please Evaluate and Treat DENTAL APPLIANCE FIXER Reason for Consult: Swallow This query below is only for informational purposes and is not editable. Admission Diagnosis/Problem: Right lower lobe pneumonia Hospital Course: Patricia presented to the emergency room with acute onset of nausea with vomiting and diarrhea. Workup in the emergency room revealed acute on chronic kidney injury with a creatinine of 2.5 and a GFR of 19. She had mild hyperkalemia with a potassium of 5.4. White blood cell count was mildly elevated at 12.8. Hemoglobin was greater than 10. Diarrhea had resolved by the time she got to the emergency room but she did have some nausea. She was moderately dehydrated. She was started on IV fluids and admitted to the hospital for observation and hydration. By the morning after admission she reported that she was feeling better. Her creatinine had improved slightly to 2.2. Her potassium was down to 4.3. She had some mild nausea but had not had vomiting or diarrhea. Unfortunately she vomited up her lunch. We kept her for an additional night of additional hydration and symptom management. Overnight the second night of hospitalization she had borderline low blood pressures. Her antihypertensive medications remained on hold. She developed diffuse myalgias as well as a cough. Chest x-ray was possibly suggestive of a right lower lung infiltrate and exam was consistent with pneumonia in this area with significant crackles in the right lower lung base. She was started on ceftriaxone and azithromycin as well as steroids with some mild wheezing noted. She was not any more hypoxic than usual. Overnight the second night of hospitalization there were no acute issues. She did continue to complain of diffuse pain. Oxygenation remained stable and blood pressures remained stable on the low side of normal in the 100- 110 range. I the third day of hospitalization she has remained relatively stable but her creatinine has declined and is now down to 2.9. Urine output has been sluggish but acceptable. She has not had any fevers. She has persistent nausea but has not had vomiting or diarrhea. IV fluids were continued at a rate of 100 per hour, as they had been for the past 48 hours or more. Cough seems a little better white count had come down and in general she was feeling slightly better other than the diffuse pain that she was still continuing to experience. Overnight during the third night of hospitalization she had difficulty with low urine output and a Mcmullen catheter was placed. She received 2 fluid boluses without any improvement in her urine output. She received a dose of bumetanide as well as a dose of furosemide with no significant improvement in her urine output. On the morning of transfer she has a creatinine of 3.8 with a GFR of 11. She has metabolic acidosis as well as uremia as she is very lethargic and she is displaying some signs of congestive heart failure. Potassium is borderline elevated at 5.4. I discussed the situation with her and her daughter. I believe she has indications for dialysis at this time. Not sure that it will change the course but I think her only hope is nephrology consultation and possibly dialysis. The patient is a little bit has a dentist about dialysis but family is very much on board with trying it and it is offered. She has been on ceftriaxone and azithromycin for antibiotic coverage with the suspected right lower lobe pneumonia. She has been on IV Solu-Medrol at 80 mg every 8 hours. She has been receiving IV fluids throughout the hospital stay. The patient is currently lethargic and somewhat confused but conversant. I believe she would benefit from transfer to a higher level of care and that the benefits of transfer outweigh the risks at this time. She will be transferred to for direct admission and nephrology consultation. - Patient Instructions Diet: NPO Activity: Bedrest Showering/Bathing: May Shower Notify Provider of: Fever, Increased Pain Other/Special Instructions: Transfer to [place] for nephrology consultation - Discharge Plan *PRESCRIPTION DRUG MONITORING PROGRAM REVIEWED*: Not Applicable *COPY OF PRESCRIPTION DRUG MONITORING REPORT IN PATIENT EDILBERTO: Not Applicable Home Medications: Home Meds Aspirin [Ecotrin] 162 mg PO DAILY 08/15/14 [History] Cholecalciferol (Vitamin D3) [Vitamin D3] 2,000 unit PO DAILY 08/15/14 [History] Citalopram Hydrobromide [Celexa] 30 mg PO DAILY 08/15/14 [History] Levothyroxine [Synthroid] 88 mcg PO DAILY 08/15/14 [History] Metoprolol Succinate [Toprol Xl] 150 mg PO DAILY 08/15/14 [History] Omeprazole [Prilosec] 20 mg PO QAM 08/15/14 [History] hydroCHLOROthiazide [Hydrochlorothiazide] 12.5 mg PO DAILY 08/15/14 [History] Gabapentin [Neurontin] 100 mg PO ASDIRECTED PRN 07/11/17 [History] Multivitamin with Minerals [Multiple Vitamin] 1 tab PO DAILY 07/11/17 [History] Nystatin 100,000 unit TOP BID 07/11/17 [History] Triamcinolone Acetonide [Kenalog 0.1% Crm] 0.1 percent TOP BID 07/11/17 [History ] Albuterol [Proventil Neb Soln] 3 ml INH Q6H PRN 04/22/18 [History] Cyanocobalamin/FA/Pyridoxine [Virt-Liset Forte Tablet] 1 each PO DAILY 04/29/18 [ History] Lisinopril 5 mg PO DAILY 04/29/18 [History] Ondansetron HCl [Zofran] 4 mg PO Q8H PRN 04/29/18 [History] Rosuvastatin [Crestor] 10 mg PO DAILY 04/29/18 [History] Sucralfate [Carafate] 1 gm PO QIDACANDBED 04/29/18 [History] Oxygen Therapy Mode: Nasal Cannula Oxygen Flow Rate (L/min): 3 Patient Handouts: Community-Acquired Pneumonia, Adult, [id number] Referrals: Nathaly Adams PA-C [Primary Care Provider] - (3-4 days - f/u after hospital stay for gastroenteritis, TRAN and elevated K+ -recheck BMP on day of visit ) - Discharge Summary/Plan Comment DC Time >30 min.: Yes (60 - transfer to acute Hospital) - Patient Data Vitals - Most Recent: Last Vital Signs Temp 36.2 C 02/12/19 11:00 Pulse 86 02/12/19 11:00 Resp 18 02/12/19 11:00 BP 117/76 02/12/19 11:00 Pulse Ox 93 L 02/12/19 11:00 Weight - Most Recent: 65.317 kg I&O - Last 24 hours: Intake & Output 02/11/19 02/12/19 02/12/19 22:59 06:59 14:59 Intake Total 30 1604 Output Total 272 237 200 Balance -242 1367 -200 Lab Results - Last 24 hrs: Laboratory Results - last 24 hr 02/12/19 02/12/19 Range/Units 04:50 04:50 WBC 8.8 (4.5-11.0) K/uL RBC 2.61 L (3.30-5.50) M/uL Hgb 8.3 L (12.0-15.0) g/dL Hct 28.1 L (36.0-48.0) % MCV 108 H (80-98) fL MCH 32 H (27-31) pg MCHC 30 L (32-36) % Plt Count 214 (150-400) K/uL Sodium 141 (140-148) mmol/L Potassium 5.4 H (3.6-5.2) mmol/L Chloride 111 H (100-108) mmol/L Carbon Dioxide 14 L (21-32) mmol/L Anion Gap 21.4 H (5.0-14.0) mmol/L BUN 67 H (7-18) mg/dL Creatinine 3.8 H* (0.6-1.0) mg/dL Est Cr Clr Drug Dosing 8.62 mL/min Estimated GFR (MDRD) 11 L (>60) Glucose 124 H (74-106) mg/dL Calcium 8.4 L (8.5-10.1) mg/dL TSH, Ultra Sensitive 0.708 (0.358-3.740) uIU/mL Med Orders - Current: Current Medications Acetaminophen (Tylenol) 650 mg PO Q4H PRN PRN Reason: Pain (Mild 1-3)/fever Last Admin: 02/10/19 21:54 Dose: 650 mg Albuterol (Proventil Neb Soln) 2.5 mg NEB Q4H PRN PRN Reason: Shortness Of Breath/wheezing Albuterol/Ipratropium (Duoneb 3.0-0.5 Mg/3 Ml) 3 ml NEB QID PRN PRN Reason: Shortness Of Breath/wheezing Last Admin: 02/10/19 21:54 Dose: 3 ml Aspirin (Halfprin) 162 mg PO DAILY [facility] Last Admin: 02/12/19 08:59 Dose: Not Given Azithromycin (Zithromax) 500 mg PO DAILY [facility] Last Admin: 02/12/19 10:30 Dose: Not Given Citalopram Hydrobromide (Celexa) 10 mg PO DAILY [facility] Last Admin: 02/12/19 09:00 Dose: Not Given Citalopram Hydrobromide (Celexa) 20 mg PO DAILY [facility] Last Admin: 02/12/19 09:00 Dose: Not Given Gabapentin (Neurontin) 100 mg PO TID [facility] Last Admin: 02/12/19 08:24 Dose: 100 mg Sodium Chloride (Normal Saline) 1,000 mls @ 100 mls/hr IV ASDIRECTED [facility] Last Admin: 02/12/19 11:07 Dose: 250 mls/hr Ceftriaxone Sodium 1 gm/ (Sodium Chloride) 50 mls @ 100 mls/hr IV Q24H [facility] Last Admin: 02/12/19 11:06 Dose: 100 mls/hr Lactobacillus Rhamnosus (Culturelle) 1 cap PO BID [facility] Last Admin: 02/12/19 08:59 Dose: Not Given Levothyroxine Sodium (Synthroid) 88 mcg PO DAILY@0730 [facility] Last Admin: 02/12/19 08:29 Dose: Not Given Methylprednisolone Sodium Succinate (Solu-Medrol) 40 mg IVPUSH Q8H [facility] Last Admin: 02/12/19 10:35 Dose: 40 mg Metoprolol Succinate (Toprol Xl) 150 mg PO DAILY [facility] Last Admin: 02/12/19 08:59 Dose: Not Given Ondansetron HCl (Zofran) 4 mg IV Q4H PRN PRN Reason: Nausea/Vomiting Last Admin: 02/11/19 07:35 Dose: 4 mg Oxycodone HCl (Oxycodone) 5 mg PO Q4H PRN PRN Reason: Pain Last Admin: 02/12/19 08:52 Dose: 5 mg Omeprazole 20mg (Pom) 0 each PO DAILY@729 [facility] Last Admin: 02/12/19 08:29 Dose: Not Given Polyethylene Glycol (Miralax) 17 gm PO DAILY PRN PRN Reason: Constipation Rosuvastatin Calcium (Crestor) 10 mg PO DAILY [facility] Last Admin: 02/12/19 09:00 Dose: Not Given Sodium Chloride (Saline Flush) 10 ml FLUSH ASDIRECTED PRN PRN Reason: Keep Vein Open Sucralfate (Carafate) 1 gm PO QIDACANDBED [facility] Last Admin: 02/12/19 10:30 Dose: Not Given Tramadol HCl (Ultram) 50 mg PO Q4H PRN PRN Reason: Pain Last Admin: 02/11/19 18:38 Dose: 50 mg Discontinued Medications Acetaminophen (Tylenol) 650 mg PO NOW ONE Stop: 02/08/19 14:59 Last Admin: 02/08/19 15:05 Dose: 650 mg Bumetanide (Bumex) 2 mg IVPUSH ONETIME ONE Stop: 02/12/19 03:32 Last Admin: 02/12/19 03:55 Dose: 2 mg Citalopram Hydrobromide (Celexa) 30 mg PO DAILY [facility] Last Admin: 02/09/19 12:51 Dose: Not Given Citalopram Hydrobromide (Celexa) 10 mg PO DAILY [facility] Last Admin: 02/10/19 09:29 Dose: 10 mg Citalopram Hydrobromide (Celexa) 20 mg PO DAILY [facility] Last Admin: 02/10/19 09:29 Dose: 20 mg Enoxaparin Sodium (Lovenox) 30 mg SUBCUT DAILY [facility] Last Admin: 02/08/19 16:22 Dose: 30 mg Enoxaparin Sodium (Lovenox) 30 mg SUBCUT Q24H [facility] Last Admin: 02/11/19 15:55 Dose: 30 mg Furosemide (Lasix) 20 mg IVPUSH ONETIME ONE Stop: 02/12/19 05:29 Last Admin: 02/12/19 05:51 Dose: 20 mg Gabapentin (Neurontin) 100 mg PO ASDIRECTED PRN PRN Reason: Pain Hydrochlorothiazide (Hydrochlorothiazide) 12.5 mg PO DAILY [facility] Last Admin: 02/09/19 12:51 Dose: Not Given Hydrochlorothiazide (Hydrochlorothiazide) 12.5 mg PO DAILY [facility] Last Admin: 02/10/19 10:45 Dose: Not Given Sodium Chloride (Normal Saline) 1,000 mls @ 999 mls/hr IV ASDIRECTED [facility] Last Admin: 02/08/19 14:06 Dose: 999 mls/hr Sodium Chloride (Normal Saline) 1,000 mls @ 75 mls/hr IV ASDIRECTED [facility] Last Admin: 02/09/19 07:20 Dose: 75 mls/hr Sodium Chloride (Normal Saline) 500 mls @ 500 mls/hr IV ASDIRECTED ONE Stop: 02/11/19 13:29 Last Admin: 02/11/19 12:38 Dose: 500 mls/hr Ketorolac Tromethamine (Toradol) 15 mg IVPUSH ONETIME ONE Stop: 02/10/19 11:22 Last Admin: 02/10/19 11:31 Dose: 15 mg Levothyroxine Sodium (Synthroid) 88 mcg PO ACBREAKFAST [facility] Last Admin: 02/09/19 12:50 Dose: Not Given Levothyroxine Sodium (Synthroid) 88 mcg PO ACBREAKFAST [facility] Last Admin: 02/10/19 07:30 Dose: 88 mcg Lisinopril (Prinivil) 5 mg PO DAILY [facility] Last Admin: 02/09/19 12:52 Dose: Not Given Lisinopril (Prinivil) 5 mg PO DAILY [facility] Lisinopril (Prinivil) 5 mg PO DAILY [facility] Last Admin: 02/10/19 10:46 Dose: Not Given Lorazepam (Ativan) 0.5 mg IVPUSH ONETIME ONE Stop: 02/11/19 23:11 Last Admin: 02/12/19 03:04 Dose: Not Given Lorazepam (Ativan) 0.5 mg IVPUSH ONETIME ONE Stop: 02/12/19 03:04 Last Admin: 02/12/19 03:14 Dose: 0.5 mg Methylprednisolone Sodium Succinate (Solu-Medrol) 125 mg IVPUSH ONETIME ONE Stop: 02/10/19 20:19 Last Admin: 02/10/19 20:32 Dose: 125 mg Metoprolol Succinate (Toprol Xl) 150 mg PO DAILY [facility] Last Admin: 02/09/19 12:52 Dose: Not Given Ondansetron HCl (Zofran) 4 mg IVPUSH ONETIME ONE Stop: 02/08/19 13:50 Last Admin: 02/08/19 14:06 Dose: 4 mg Pantoprazole Sodium (Protonix) 40 mg PO ACBREAKFAST [facility] Last Admin: 02/09/19 12:50 Dose: Not Given Metoprolol Succinate (100mg Pom) 0 each PO DAILY [facility] Last Admin: 02/10/19 10:46 Dose: Not Given Rosuvastatin Calcium (Crestor) 10 mg PO DAILY [facility] Last Admin: 02/09/19 12:51 Dose: Not Given Sodium Polystyrene Sulfonate (Kayexalate) 15 gm PO ONETIME ONE Stop: 02/08/19 21:58 Last Admin: 02/08/19 22:24 Dose: 15 gm - Exam Quality Assessment: Reports: Supplemental Oxygen General: Reports: Alert, Cooperative, No Acute Distress, Lethargic. Denies: Oriented HEENT: Reports: Pupils Equal Lungs: Reports: Crackles (Right lower lung), Wheezing (Mild diffuse expiratory) . Denies: Normal Respiratory Effort (Increased work of breathing) Cardiovascular: Reports: Regular Rate, Regular Rhythm GI/Abdominal Exam: Soft, No Distention Extremities: No Pedal Edema. No: Increased Warmth Skin: Reports: Warm, Dry Psy/Mental Status: Reports: Alert. Denies: Agitated
[2019-02-12] MEDS: Albuterol/Ipratropium 3.0-0.5 MG/3 ML Neb Soln NEB PRN (13:20)
== END 2019-02-12 14:25 | DRG 640 ==
LOC: JP.ED 12:53 → JP.MS 14:49 → OBSVTOIN 02-10 11:20
PROVIDERS: ADMIT Hospitalist; ATTEND Internal Medicine
DX: E86.0 Dehydration (principal); J18.1 Lobar pneumonia, unspecified organism; J44.0 Chronic obstructive pulmonary disease with (acute) lower respiratory infection; N17.9 Acute kidney failure, unspecified; N18.4 Chronic kidney disease, stage 4 (severe); J44.9 Chronic obstructive pulmonary disease, unspecified; I13.0 Hypertensive heart and chronic kidney disease with heart failure and stage 1 through stage 4 chronic kidney disease, or unspecified chronic kidney disease; I12.9 Hypertensive chronic kidney disease with stage 1 through stage 4 chronic kidney disease, or unspecified chronic kidney disease; N18.3 Chronic kidney disease, stage 3 (moderate); E87.2 Acidosis; I25.10 Atherosclerotic heart disease of native coronary artery without angina pectoris; E78.00 Pure hypercholesterolemia, unspecified; I73.9 Peripheral vascular disease, unspecified; K52.9 Noninfective gastroenteritis and colitis, unspecified; K21.9 Gastro-esophageal reflux disease without esophagitis; M54.9 Dorsalgia, unspecified; G89.29 Other chronic pain; I50.9 Heart failure, unspecified; E87.5 Hyperkalemia; H54.7 Unspecified visual loss; M19.90 Unspecified osteoarthritis, unspecified site; F32.9 Major depressive disorder, single episode, unspecified; E03.9 Hypothyroidism, unspecified; D64.9 Anemia, unspecified; Z90.49 Acquired absence of other specified parts of digestive tract; R53.1 Weakness; R06.02 Shortness of breath; R11.2 Nausea with vomiting, unspecified; R19.7 Diarrhea, unspecified; R53.81 Other malaise; Z90.710 Acquired absence of both cervix and uterus; Z88.2 Allergy status to sulfonamides; Z88.8 Allergy status to other drugs, medicaments and biological substances; Z86.010 Personal history of colon polyps; Z87.440 Personal history of urinary (tract) infections; Z79.899 Other long term (current) drug therapy; Z79.82 Long term (current) use of aspirin; Z79.890 Hormone replacement therapy; Z99.81 Dependence on supplemental oxygen; Z87.891 Personal history of nicotine dependence
CPT/HCPCS: 36415 ×2; 71045; 80048; 80053; 81001; 84132; 85025; 85027; 85651; 86140; 96361 ×3; 96372 ×2; 96374; 96376 ×2; 97162; 97535; 99284; A9270 ×24; G0378 ×2; J1650 ×2; J2405 ×4; J7030 ×5; 51702; 51798; 84443; 92610-GN; 94640; 97110-GP; 97530-GP; J0696; J1885; J1940; J2060; J2920; J2930; J3490; J7050; J7620-GY